=== PATIENT | male | born 1940 | race Caucasian/White ===

== ENCOUNTER 2023-06-13 06:11 | Day surgery (SDC) | payer BC, MEDICARE, SELFPAY ==
[2023-06-13] VITALS (18 sets, daily range): BP systolic 101–151; BP diastolic 28–127
[2023-06-13 06:58] LABS: Glucose - Point of Care 205 mg/dl (70-99)
[2023-06-13] MEDS: NSS 200 IV (07:25)
[2023-06-13 10:20] LABS: ACT-LR - POC 340 Seconds (116-155)
--- NOTE | 2023-06-13 11:08 | ITS.CL.CATH ---
Marketing Services Manager - Catheterization
Cardiac Catheterization
Procedure Report:
RIGHT AND LEFT HEART STUDY WITH CORONARY INTERVENTION
Date of Procedure: June 13, 2023
Referring: Dr. Sebastian Crawford
PROCEDURES:
1. Right heart catheterization
2. Coronary angiography
3. Successful stenting of the distal right coronary artery with a 3.0 x 15 mm Xience stent that was postdilated with a 3.0 mm noncompliant balloon
INDICATION: This is an 83-year-old gentleman with a prior history of aortic stenosis and ongoing symptoms of exertional dyspnea. His most recent echocardiogram was performed during hospitalization at [facility] on 04/17/2023. His LVEF was
estimated at 40%. The aortic valve peak velocity measured 3.55 m/s with a mean gradient of 36 mmHg. He does have a prior history of coronary artery disease and underwent bifurcation stenting of the LAD and diagonal branch in June 2022. He had
been treated with aspirin and ticagrelor since that time. His ticagrelor was discontinued after he required a left carotid in February 2023. However, he was transition back to ticagrelor while hospitalized at [facility] 04/17/2023. His
shortness of breath has persisted. He was initially scheduled for an exercise stress study but reported ongoing exertional intolerance and is now referred for right and left heart catheterization
ACCESS: Prior attempts at right radial arterial access were unsuccessful. Ultrasound guidance was utilized to obtain access in the left common femoral artery.
HEMODYNAMICS : mmHg
RA (m) : 11
RV (s/d) : 46/10, 14
PA (s/d, m) : 41/19, 27
PCWP (m) : 18
AO (s/d, m) : 147/67
Cardiac Output: 3.9 L / min
Cardiac Index: 1.9 L/ min / m-2
CORONARY FINDINGS
Dominance: Right
LEFT MAIN: Minor distal tapering
LEFT ANTERIOR DESCENDING: The LAD arises normally from the left main and runs in the anterior interventricular groove. The LAD and diagonal bifurcation stented segment remains widely patent. The mid to distal LAD has minor irregularities but no
focal obstructive stenosis.
CIRCUMFLEX: The circumflex is a small nondominant vessel with a 70-80% stenosis in its midportion. The circumflex supplies a small OM1 and very tiny terminal OM 2 and OM 3 branches
RIGHT CORONARY ARTERY: The right coronary artery is a dominant vessel with a new 70% stenosis in its midportion when compared to the angiogram from 06/2022. The PDA arises from the distal RCA and is widely patent. The posterolateral branch is small.
VENTRICULOGRAPHY: Not done
ANGIOPLASTY PROCEDURE DETAIL: Upon review of the diagnostic catheterization films the decision was made to proceed with stenting of the new 70% mid RCA stenosis. Intravenous heparin was administered and the patient received a 180 mg loading dose of
ticagrelor. A 3.0 x 15 mm Xience stent was implanted in the mid RCA at nominal pressures then postdilated with a 3.0 mm noncompliant balloon to high pressures with a nice angiographic result
RADIATION SUMMARY: Fluoro Time (min): 10.8, Dose (mGy): 697, DAP (Gy.cm2) : 65.4
CONCLUSIONS
1. Likely severe symptomatic aortic stenosis
2. Patent LAD/diagonal stents from 06/2022
3. Successful stenting of the mid right coronary artery with a 3.0 x 15 mm Xience stent that was implanted at nominal pressures and postdilated with a 3 mm noncompliant balloon
RECOMMENDATIONS
1. Uninterrupted dual antiplatelet therapy for 6 to 12 months
2. Proceed with TAVR CT and CT surgical consult
3. Patient feels his breathlessness worsened with ticagrelor compared to clopidogrel. Will switch back to clopidogrel.
Copy to: Dr. Sebastian Crawford
[2023-06-13] MEDS: NSS 1000 IV (11:18)
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
== END 2023-06-13 16:35 | disposition home or self-care (01) ==
LOC: CATH 06:11
PROVIDERS: ATTENDING PHYSICIAN Internal Medicine Interventional Cardiology; FAMILY PHYSICIAN Family Medicine; OTHER PHYSICIAN Internal Medicine Cardiovascular Disease
DX: I25.10 Atherosclerotic heart disease of native coronary artery without angina pectoris (principal); I35.0 Nonrheumatic aortic (valve) stenosis; I11.0 Hypertensive heart disease with heart failure; I50.9 Heart failure, unspecified; R06.09 Other forms of dyspnea; Z82.49 Family history of ischemic heart disease and other diseases of the circulatory system; Z79.02 Long term (current) use of antithrombotics/antiplatelets; Z79.82 Long term (current) use of aspirin; Z95.5 Presence of coronary angioplasty implant and graft; E11.9 Type 2 diabetes mellitus without complications; N31.9 Neuromuscular dysfunction of bladder, unspecified
CPT/HCPCS: 82962; 85347; 93005; 93456; C1725; C1760; C1769; C1874; C1894; C9600; Q9967

== ENCOUNTER 2023-06-17 17:14 | Inpatient (IN) | payer BC, MEDICARE, SELFPAY ==
[2023-06-17] VITALS (7 sets, daily range): BP systolic 102–124; BP diastolic 51–68; BMI 29.3; BMI 29.1
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
[2023-06-17 13:45] LABS: % Basophils 0.6 % (0-2); % Eosinophils 1.2 % (0-6); % Immature Granulocytes 0.4 % (0-0.5); % Lymphocytes 12.7 % (20.5-51.1); % Monocytes 12.1 % (1.7-9.3); Absolute Basophils 0.1 10^3/uL (0-0.2); Absolute Eosinophils 0.1 10^3/uL (0-0.7); Absolute Lymphocytes 1.3 10^3/uL (1.2-3.4); Absolute Monocytes 1.3 10^3/uL (0.1-0.6); Absolute Neutrophils 7.6 10^3/uL (1.4-6.5); Hematocrit 30.5 % (39.0-52.0); Hemoglobin 9.5 g/dL (13.0-18.0); Mean Corp Hgb Conc. 31.1 g/dL (33.0-37.0); Mean Corpuscular Hgb 21.9 pg (27.0-31.0); Mean Corpuscular Volume 70.3 fL (80.0-94.0); Mean Platelet Volume 10.9 fL (7.4-10.4); Nucleated Red Blood Cells % 0 % (-); Platelet Count 246 10^3/uL (130-400); Red Blood Cell Count 4.34 10^6/uL (4.70-6.10); Red Cell Dist. Width 19.3 % (11.5-14.5); White Blood Cell Count 10.4 10^3/uL (4.8-10.8)
[2023-06-17 13:59] LABS: ALT (SGPT) 12 U/L (0-50); AST (SGOT) 22 U/L (17-59); Albumin 4.2 g/dl (3.5-5.0); Alkaline Phosphatase 89 U/L (38-126); Blood Urea Nitrogen 33 mg/dl (9-20); Calcium 9.4 mg/dl (8.4-10.2); Carbon Dioxide 26 mmol/L (22-30); Chloride 100 mmol/L (98-107); Estimated Creatinine Clearance 32 ml/min; Glucose 160 mg/dl (70-99); Sodium 135 mmol/L (135-145); Total Protein 6.9 g/dl (6.3-8.2); eGFR 37.12
[2023-06-17 14:13] LABS: Troponin I 0.425 ng/ml
[2023-06-17 14:29] LABS: NT-proBNP 6720 pg/ml
[2023-06-17] MEDS: NSS 500 IV (14:51)
[2023-06-17 16:56] LABS: Troponin I 0.422 ng/ml
[2023-06-17] MEDS: ROCEPHIN 1000 MG IV (17:02)
--- NOTE | 2023-06-17 17:02 | HPS.HSE ---
Addendum entered and electronically signed by Martínez Canales MD 06/17/23 17:06:
Continue BIPAP for sleep apnea. Protonix increased to BID.
Original Note:
Family Physician
-
Family Physician: Danielle Samayoa
Chief Complaint
-
shortness of breath
History of Present Illness
83-year-old male past medical history of asthma, sleep apnea on BiPAP, tracheostomy, CAD status post stents, chronic HFrEF moderate to severe aortic stenosis, hypertension, hyperlipidemia, GERD, CKD 3, diabetes, TIA, left carotid stenosis status
post stent in February, duodenal ulceration, left shoulder calcified bursitis, history of biliary stone status post extraction, presenting with progressive shortness of breath.
Patient has been ongoing shortness of breath for the past several months attributed to moderate to severe aortic stenosis and coronary artery disease. Patient underwent cardiac catheterization 4 days ago with RCA stent placement without improvement
in shortness of breath. Shortness of breath has gotten significantly worse in the past few days to the point where he cannot ambulate. Patient also has intermittent chest pain since prior to catheterization which has been stable. No cough or
fevers or chills.
Patient does not have any blood in the stool or black stool. called cardiology office who recommended iron transfusion.
Patient was also complaining of bilateral groin pain since catheterization 4 days ago. He denies any groin pain at the current time. He has a hematoma at the site of the catheterization.
In February patient was hospitalized at [facility] was found to be anemic and had endoscopy showed duodenal ulceration. He was on Protonix at that time. He also had a TIA and had left carotid stent placed.
Patient is also complaining of left shoulder pain.
No smoking or alcohol use
Medical History
Past Medical History
Past Medical History: Reports Other ( asthma, sleep apnea on BiPAP, tracheostomy, CAD status post stents, chronic HFrEF moderate to severe aortic stenosis, hypertension, hyperlipidemia, GERD, CKD 3, diabetes, TIA, left carotid stenosis status post
stent in February, duodenal ulceration, left shoulder calcified bursitis, history of bili)
Past Surgical History: Reports None
Social History
Tobacco: Non-smoker
Alcohol: None
Drug: None
Family History
Family History: Not pertinent
Allergies / Home Medications
Allergies reflects when Allergies were last updated in [email or web address].
Home Medications with original date entered in [email or web address]
Allergy/Medication List:
Allergies
Allergy/AdvReac Type Severity Reaction Status Date / Time
amlodipine besylate Allergy Edema Verified 06/13/23 07:30
[From Norvasc]
benazepril HCl Allergy Bradycardia Verified 06/13/23 07:30
[From Lotensin]
clonidine HCl [From Catapres] Allergy SEVERE Verified 06/13/23 07:30
FATIGUE
doxazosin Allergy Shortness Verified 06/13/23 07:30
of breath,
swollen
hands
doxycycline Allergy Upset Verified 06/13/23 07:30
Stomach
hydrochlorothiazide Allergy Renal Verified 06/13/23 07:30
Insufficiency
lisinopril Allergy Tongue Verified 06/13/23 07:30
Swelling
metoprolol tartrate Allergy SEVERE Verified 06/13/23 07:30
[From Lopressor] Fatigue
niacin Allergy Rash Verified 06/13/23 07:30
semaglutide [From Ozempic] Allergy Gall Verified 06/13/23 07:30
Bladder
dx/stones,
cholecystitis
spironolactone Allergy Gynocosmast Verified 06/13/23 07:30
[From Aldactone] ia
Rkysbqc-IDB-CaA Reductase Allergy Myalgias Verified 06/13/23 07:30
Inhibitor
[Dxucikp-Vss-Vpw Reductase
Inhibitor]
Home Medications
glyburide 5 mg tablet 10 mg PO DAILY Diabetes 06/01/13
albuterol sulfate 90 mcg/actuation aerosol inhaler (ProAir HFA) 2 puff inhalation R [id number] PRN sob 06/22/22
aspirin 81 mg tablet,delayed release 81 mg PO DAILY Blood clot prevention/tx 06/22/22
magnesium oxide 800 mg PO DAILY Supplement 06/22/22
acetaminophen 650 mg tablet,extended release 1,300 mg PO QPM pain 06/13/23
colchicine 0.6 mg tablet 0.3 mg PO DAILY Gout 06/13/23
cranberry 500 mg capsule 900 mg PO DAILY Supplement 06/13/23
evolocumab 140 mg/mL subcutaneous syringe (Repatha Syringe) 140 mg SC Q2W High Cholesterol 06/13/23
furosemide 20 mg tablet (Lasix) 60 mg PO BID Fluid Retention/Swelling 06/13/23
insulin detemir U-100 100 unit/mL (3 mL) subcutaneous pen (Levemir FlexPen) 14 unit SC QPM Diabetes 06/13/23
pantoprazole 40 mg tablet,delayed release (Protonix) 40 mg PO DAILY Gastrointestinal Issue 06/13/23
tramadol 50 mg tablet 50 mg PO QPM PRN SEVERE pain 06/13/23
carvedilol 6.25 mg tablet (Coreg) 6.25 mg PO BID Blood Pressure 06/17/23
clopidogrel 75 mg tablet (Plavix) 75 mg PO DAILY Blood Clot Prevention/Tx 06/17/23
nitroglycerin 0.4 mg sublingual tablet 0.4 mg sublingual [id number] PRN chest pain 06/17/23
rosuvastatin 5 mg tablet (Crestor) 5 mg PO MOWEFR cholesterol 06/17/23
Review of Systems
-
History Source: Patient
A 12 point ROS was completed and negative except as noted: Yes
Constitutional: Reports No Symptoms
EENT: Reports No Symptoms
Respiratory: Reports See HPI
Cardiac: Reports See HPI
Abdomen/GI: Reports No Symptoms
: Reports No Symptoms
Musculoskeletal: Reports No Symptoms
Skin: Reports No Symptoms
Neurological: Reports No Symptoms
Endocrine: Reports No Symptoms
Hematologic/Lymphatic: Reports No Symptoms
Psych: Reports No Symptoms
Physical Exam
Vital Signs
Vital Signs
Temp Pulse Resp BP Pulse Ox
97.6 F 66 30 103/59 92
06/17/23 12:22 06/17/23 13:30 06/17/23 13:30 06/17/23 13:00 06/17/23 13:00
Physical Exam
General: Well Developed, Well Nourished and No Apparent Distress
HEENT: NormoCephalic, Moist mucous membranes and Atraumatic
Respiratory: Clear
Cardiac: S1/S2 and Regular Rhythm; No Murmur or Rub
GI: Soft, Non Tender, Non Distended and Normal Bowel Sounds; No Organomegaly
Rectal: Deferred by Provider
Musculoskeletal: No Clubbing, No Cyanosis and No Edema
Skin: No Rash
Neuro: Nonfocal/grossly intact
Laboratory Results
-
06/17/23 13:32
06/17/23 13:32
Laboratory Results
Total Bilirubin 1.0 mg/dl (0.2-1.3) 06/17/23 13:32
AST 22 U/L (17-59) 06/17/23 13:32
ALT 12 U/L (0-50) 06/17/23 13:32
Alkaline Phosphatase 89 U/L (38-126) 06/17/23 13:32
Troponin I 0.422 ng/ml H* 06/17/23 16:22
Data Reviewed
-
Lab Data: Labs Reviewed by me
Old Records: Reviewed
Impression/Plan
-
IMPRESSION:
PLAN:
# Exertional dyspnea secondary to right medial lobe pneumonia/progressive anemia
-Chest x-ray shows increased opacity medial aspect of the right lung base posteriorly consistent with pneumonic process
-Ceftriaxone/azithromycin
# Progressive microcytic anemia likely due to duodenal erosion in the setting of current aspirin/Plavix use
# History of duodenal erosion
-Hemoccult negative
-Hemoglobin 9.5 from 11 prior to catheterization, from 13.6 in June 2022
-Check iron studies, B12 and folate
-Iron transfusion
-Continue Protonix
-Will need to continue aspirin and Plavix due to recent cardiac stent, and would likely not be candidate for endoscopy at this time
-Continue to monitor hemoglobin as outpatient
# Bilateral groin pain, now resolved
# Left groin hematoma
-Left groin duplex ultrasound without evidence of pseudoaneurysm or fistula
# Chronic Non-[place] troponin elevation in the setting of recent CAD/CKD/anemia/moderate to severe aortic stenosis
# History of CAD status post recent distal right coronary artery stent on 06/13/23
-EKG shows normal sinus rhythm, LVH with repolarization
-Troponin of 0.4 from 0.25 last year
-Continue aspirin, Plavix
Chronic HFrEF
-Prior echo with EF of 45 to 50%
-Continue Lasix
Moderate to severe aortic stenosis
-Plan for TAVR once other medical conditions are optimized
History of TIA
Left carotid stenosis status post stent placement in February
# Left shoulder pain secondary to degenerative joint disease
-Pain due to calcified bursitis as per
-Continue tramadol
CKD 3
-Renal function at baseline
Essential hypertension
-Continue Coreg
Asthma
-Continue inhalers
Obstructive sleep apnea
History of tracheostomy
Hyperlipidemia
-Continue statin
Type 2 diabetes
-Hold glyburide
-Continue Levemir
-Insulin sliding scale
Gout
-Continue colchicine
History of gallbladder stones status post retrieval
Full code
DVT prophylaxis�SCDs
Cardiac diet
[2023-06-17] MEDS: ULTRAM 50 MG PO (17:23)
[2023-06-17 20:50] LABS: Glucose - Point of Care 228 mg/dl (70-99)
[2023-06-17] MEDS: ZITHROMAX INFUSION 250 IV (20:51)
[2023-06-17] MEDS: COREG 6.25 MG PO (20:56)
[2023-06-17] MEDS: LASIX 60 MG PO (20:57)
[2023-06-17] MEDS: PROTONIX 40 MG PO (20:58)
[2023-06-17] MEDS: TYLENOL 1000 MG PO (20:58)
[2023-06-17 21:04] LABS: Iron 49 ug/dl (49-181)
[2023-06-17 21:13] LABS: Percent Saturation 11 % (20-50); Total Iron Binding Capacity 439 ug/dl (261-462)
[2023-06-17] MEDS: LEVEMIR 0.140000000000000013 UNITS SC (21:14)
[2023-06-17 21:52] LABS: Ferritin 19.8 ng/ml (17.9-464.0)
[2023-06-17 22:00] LABS: Troponin I 0.384 ng/ml
[2023-06-17 22:05] LABS: Vitamin B12 260 pg/ml (239-931)
--- NOTE | 2023-06-18 00:22 | PTCARENOTE ---
Patient received from ED, ambulated to bed from stretcher at bedside with patient. Vital signs taken. No acute issues, Patient oriented to room. Patient with home cpap to be used at bedtime . no further needs assessed at this time.
[2023-06-18 02:11] LABS: % Basophils 0.5 % (0-2); % Eosinophils 1.8 % (0-6); % Immature Granulocytes 0.4 % (0-0.5); % Lymphocytes 19.8 % (20.5-51.1); % Monocytes 16.3 % (1.7-9.3); % Neutrophils 61.2 % (42.2-75.2); Absolute Eosinophils 0.1 10^3/uL (0-0.7); Absolute Lymphocytes 1.6 10^3/uL (1.2-3.4); Absolute Monocytes 1.3 10^3/uL (0.1-0.6); Absolute Neutrophils 4.9 10^3/uL (1.4-6.5); Hematocrit 27.3 % (39.0-52.0); Hemoglobin 8.7 g/dL (13.0-18.0); Mean Corp Hgb Conc. 31.9 g/dL (33.0-37.0); Mean Corpuscular Hgb 22.1 pg (27.0-31.0); Mean Corpuscular Volume 69.3 fL (80.0-94.0); Mean Platelet Volume 10.5 fL (7.4-10.4); Nucleated Red Blood Cells % 0 % (-); Platelet Count 217 10^3/uL (130-400); Red Blood Cell Count 3.94 10^6/uL (4.70-6.10); Red Cell Dist. Width 19.2 % (11.5-14.5); White Blood Cell Count 7.9 10^3/uL (4.8-10.8)
[2023-06-18 02:31] LABS: ALT (SGPT) 10 U/L (0-50); AST (SGOT) 19 U/L (17-59); Albumin 3.4 g/dl (3.5-5.0); Alkaline Phosphatase 68 U/L (38-126); Blood Urea Nitrogen 35 mg/dl (9-20); Calcium 9.1 mg/dl (8.4-10.2); Carbon Dioxide 27 mmol/L (22-30); Chloride 101 mmol/L (98-107); Estimated Creatinine Clearance 34 ml/min; Glucose 155 mg/dl (70-99); Potassium 3.9 mmol/L (3.5-5.1); Sodium 136 mmol/L (135-145); eGFR 39.75
[2023-06-18 02:42] LABS: Troponin I 0.411 ng/ml
[2023-06-18 03:00] VITALS: BP 106/49
[2023-06-18 07:02] LABS: Troponin I 0.421 ng/ml
[2023-06-18 07:37] LABS: Glucose - Point of Care 180 mg/dl (70-99)
[2023-06-18 07:55] VITALS: BP 110/56
[2023-06-18] MEDS: NOVOLOG FLEXPEN-LOW RESISTANCE 1 UNITS SC (08:09)
[2023-06-18] MEDS: COLCHICINE 0.299999999999999989 MG PO (09:29)
[2023-06-18] MEDS: ASPIR LOW (ENTERIC COATED) 81 MG PO (09:29)
[2023-06-18] MEDS: COREG 6.25 MG PO ×2 (09:30→20:24)
[2023-06-18] MEDS: LASIX 60 MG PO ×2 (09:32→15:47)
[2023-06-18] MEDS: MAG-TAB SR 168 MG PO (09:33)
[2023-06-18] MEDS: PLAVIX 75 MG PO (09:34)
[2023-06-18] MEDS: PROTONIX 40 MG PO ×2 (09:35→20:24)
[2023-06-18] MEDS: CRESTOR 5 MG PO (09:38)
[2023-06-18 11:12] VITALS: BP 120/64
[2023-06-18 11:31] LABS: Glucose - Point of Care 209 mg/dl (70-99)
[2023-06-18] MEDS: NOVOLOG FLEXPEN-LOW RESISTANCE 2 UNITS SC (12:22)
[2023-06-18] MEDS: FERRLECIT 110 MG IV (13:37)
[2023-06-18 14:53] VITALS: BP 102/64
--- NOTE | 2023-06-18 15:05 | PTCARENOTE ---
Pt ambulated to restroom w/o ringing call sandy. Pt educated on importance of calling for assistance. Bed alarm placed under Pt for safety. Pt is SOB after ambulation with SpO2 in 80's. 2L O2 placed on Pt. Re-check 94% on 2L. Pt with 100.4F temp. TT
to Dr. Smith- No new orders. Will monitor this shift. Scheduled tylenol 1000 mg due @ 1800.
--- NOTE | 2023-06-18 15:30 | W.PN.HOSP.TC ---
Today's Communication/Plan
-
abx
mrsa swab. covid, flu follow up
incentive arleen
procalcitonin
trop most likely 2/2 to severe , chest pain atypical of CAD disease; chest pain is upon inspiration
F/u trop tomorrow, if uptrending or chest pain symptoms change - consult cards
Assessment / Plan
Assessment / Plan
Physical Exam
General: Well Developed, Well Nourished and No Apparent Distress
HEENT: NormoCephalic, Moist mucous membranes and Atraumatic
Respiratory: Clear
Cardiac: S1/S2 and Regular Rhythm; No Murmur or Rub
GI: Soft, Non Tender, Non Distended and Normal Bowel Sounds; No Organomegaly
Rectal: Deferred by Provider
Musculoskeletal: No Clubbing, No Cyanosis and No Edema
Skin: No Rash
Neuro: Nonfocal/grossly intact
# Exertional dyspnea secondary to right medial lobe pneumonia/progressive anemia
-chest pain is pleuritic, sharp and upon inspiration, therefore doubt cardiac in nature
-Chest x-ray shows increased opacity medial aspect of the right lung base posteriorly consistent with pneumonic process
-Ceftriaxone/azithromycin
# Progressive microcytic anemia likely due to duodenal erosion in the setting of current aspirin/Plavix use
# History of duodenal erosion
-Hemoccult negative
-Hemoglobin 9.5 from 11 prior to catheterization, from 13.6 in June 2022
-Check iron studies, B12 and folate
-Iron transfusion
-Continue Protonix
-Will need to continue aspirin and Plavix due to recent cardiac stent, and would likely not be candidate for endoscopy at this time
-Continue to monitor hemoglobin as outpatient
# Bilateral groin pain, now resolved
# Left groin hematoma
-Left groin duplex ultrasound without evidence of pseudoaneurysm or fistula
# Chronic Non-[place] troponin elevation in the setting of recent CAD/CKD/anemia/moderate to severe aortic stenosis
# History of CAD status post recent distal right coronary artery stent on 06/13/23
-EKG shows normal sinus rhythm, LVH with repolarization
-Troponin of 0.4 from 0.25 last year
-Continue aspirin, Plavix
-most likely 2/2 to severe aortic stensosis and acute infection
-not typical chest pain.
-can repeat trop tomorrow
Chronic HFrEF
-Prior echo with EF of 45 to 50%
-Continue Lasix
Moderate to severe aortic stenosis
-Plan for TAVR once other medical conditions are optimized
History of TIA
Left carotid stenosis status post stent placement in February
# Left shoulder pain secondary to degenerative joint disease
-Pain due to calcified bursitis as per
-Continue tramadol
CKD 3
-Renal function at baseline
Essential hypertension
-Continue Coreg
Asthma
-Continue inhalers
Obstructive sleep apnea
History of tracheostomy
Hyperlipidemia
-Continue statin
Type 2 diabetes
-Hold glyburide
-Continue Levemir
-Insulin sliding scale
Gout
-Continue colchicine
History of gallbladder stones status post retrieval
Full code
DVT prophylaxis�HSQ
Cardiac diet
Anticipated Discharge: > 48 hours
Subjective/Interval History
-
Date of Service: June 18, 2023
no acute events
Objective Data
-
Vital Signs:
Vital Signs
Temp Pulse Resp BP Pulse Ox
100.4 F H 86 22 102/64 94
06/18/23 14:53 06/18/23 14:53 06/18/23 14:53 06/18/23 14:53 06/18/23 14:53
Review of Systems
-
History Source: Patient
All other systems: Reviewed and negative
Data Reviewed
-
Diagnostic Radiology: Image personally visualized and interpreted and Report Reviewed by me
--- NOTE | 2023-06-18 16:26 | CM ---
vendor relationship manager reviewed patient's chart and met with patient and patient lives with his spouse in a 2 story home, patient is independent with adl's and ambulation, patient has a cane and walker in home that he does not use. Patient is currently
requiring oxygen and patient did not require oxygen prior to admission. Patient has a prescription plan and uses [facility] pharmacy.
PCP: Danielle Samayoa
Plan; Home when stable no needs, patient has declined visiting nursing as patient's spouse states she is a nurse.
[2023-06-18 16:46] LABS: Glucose - Point of Care 133 mg/dl (70-99)
[2023-06-18 16:49] LABS: Procalcitonin 0.06 ng/ml (0.0-0.25)
[2023-06-18] MEDS: NOVOLOG FLEXPEN-LOW RESISTANCE SC (17:21)
[2023-06-18] MEDS: ULTRAM 50 MG PO (18:32)
[2023-06-18] MEDS: TYLENOL 1000 MG PO (18:37)
[2023-06-18] MEDS: STERILE WATER FOR INJECTION 10 ML IV (18:38)
[2023-06-18] MEDS: ROCEPHIN 1000 MG IV (18:39)
[2023-06-18 19:15] VITALS: BP 119/63
[2023-06-18] MEDS: ZITHROMAX INFUSION 250 IV (20:25)
[2023-06-18] MEDS: HEPARIN 5000 UNITS SC (20:25)
[2023-06-18 21:43] LABS: Glucose - Point of Care 144 mg/dl (70-99)
[2023-06-18] MEDS: LEVEMIR 0.140000000000000013 UNITS SC (22:16)
[2023-06-18 22:30] LABS: COVID-19 Antigen Negative (Negative)
[2023-06-18 23:36] VITALS: BP 98/59
[2023-06-19 03:16] VITALS: BP 104/59
[2023-06-19 06:00] VITALS: BMI 29.4
[2023-06-19 07:07] LABS: Hematocrit 29.2 % (39.0-52.0); Hemoglobin 8.9 g/dL (13.0-18.0); Mean Corp Hgb Conc. 30.5 g/dL (33.0-37.0); Mean Corpuscular Volume 72.1 fL (80.0-94.0); Mean Platelet Volume 10.6 fL (7.4-10.4); Platelet Count 225 10^3/uL (130-400); Red Blood Cell Count 4.05 10^6/uL (4.70-6.10); Red Cell Dist. Width 19.4 % (11.5-14.5)
[2023-06-19 07:30] VITALS: BP 115/68
[2023-06-19 07:31] LABS: Glucose - Point of Care 122 mg/dl (70-99)
[2023-06-19 07:38] LABS: Troponin I 0.868 ng/ml
[2023-06-19] MEDS: NOVOLOG FLEXPEN-LOW RESISTANCE SC (07:46)
[2023-06-19 08:23] LABS: ALT (SGPT) 11 U/L (0-50); AST (SGOT) 22 U/L (17-59); Albumin 3.8 g/dl (3.5-5.0); Alkaline Phosphatase 77 U/L (38-126); Blood Urea Nitrogen 34 mg/dl (9-20); Calcium 9.1 mg/dl (8.4-10.2); Carbon Dioxide 26 mmol/L (22-30); Chloride 102 mmol/L (98-107); Estimated Creatinine Clearance 32 ml/min; Glucose 109 mg/dl (70-99); Potassium 4.2 mmol/L (3.5-5.1); Sodium 134 mmol/L (135-145); Total Bilirubin 0.8 mg/dl (0.2-1.3); Total Protein 6.3 g/dl (6.3-8.2); eGFR 37.12
[2023-06-19] MEDS: COREG 6.25 MG PO ×2 (09:17→22:06)
[2023-06-19] MEDS: PLAVIX 75 MG PO (09:17)
[2023-06-19] MEDS: LASIX 60 MG PO (09:17)
[2023-06-19] MEDS: ASPIR LOW (ENTERIC COATED) 81 MG PO (09:17)
[2023-06-19] MEDS: COLCHICINE 0.299999999999999989 MG PO (09:17)
[2023-06-19] MEDS: MAG-TAB SR 168 MG PO (09:20)
[2023-06-19] MEDS: HEPARIN 5000 UNITS SC ×2 (09:20→22:05)
[2023-06-19] MEDS: PROTONIX 40 MG PO ×2 (09:20→22:09)
[2023-06-19] MEDS: ULTRAM 50 MG PO (09:50)
[2023-06-19 11:18] VITALS: BMI 29.4
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
[2023-06-19 12:34] LABS: Glucose - Point of Care 182 mg/dl (70-99)
[2023-06-19 13:04] VITALS: BP 121/77
[2023-06-19] MEDS: NOVOLOG FLEXPEN-LOW RESISTANCE 1 UNITS SC ×2 (13:04→16:31)
[2023-06-19] MEDS: FERRLECIT 110 MG IV (14:15)
--- NOTE | 2023-06-19 14:32 | W.PN.HOSP.TC ---
Today's Communication/Plan
-
cont abx
trial lasix
iv iron
incentive arleen
Assessment / Plan
Assessment / Plan
Physical Exam
General: Well Developed, Well Nourished and No Apparent Distress
HEENT: NormoCephalic, Moist mucous membranes and Atraumatic
Respiratory: Clear
Cardiac: S1/S2 and Regular Rhythm; No Murmur or Rub
GI: Soft, Non Tender, Non Distended and Normal Bowel Sounds; No Organomegaly
Rectal: Deferred by Provider
Musculoskeletal: No Clubbing, No Cyanosis and No Edema
Skin: No Rash
Neuro: Nonfocal/grossly intact
# Exertional dyspnea secondary to right medial lobe pneumonia/progressive anemia
-chest pain is pleuritic, sharp and upon inspiration, therefore doubt cardiac in nature
-Chest x-ray shows increased opacity medial aspect of the right lung base posteriorly consistent with pneumonic process
-Ceftriaxone/azithromycin
# Chronic Non-NE troponin elevation in the setting of recent CAD/CKD/anemia/moderate to severe aortic stenosis
# History of CAD status post recent distal right coronary artery stent on 06/13/23
-EKG shows normal sinus rhythm, LVH with repolarization
-Troponin up to to .86 today
� Cardiology consulted
�I suspect this is secondary to moderate-severe aortic stenosis, sepsis
� Can trial gentle diuresis, IV Lasix
� Treat medically/conservatively
-Continue aspirin, Plavix, Crestor, beta-tio
-not typical chest pain.
# Progressive microcytic anemia likely due to duodenal erosion in the setting of current aspirin/Plavix use
# History of duodenal erosion
-Hemoccult negative
-Hemoglobin 9.5 from 11 prior to catheterization, from 13.6 in June 2022
-Check iron studies, B12 and folate
-Iron transfusion
-Continue Protonix
-Will need to continue aspirin and Plavix due to recent cardiac stent, and would likely not be candidate for endoscopy at this time
-Continue to monitor hemoglobin as outpatient
#Hyponatremia
� Mild
� Mostly secondary pneumonia
� Continue to monitor
# Bilateral groin pain, now resolved
# Left groin hematoma
-Left groin duplex ultrasound without evidence of pseudoaneurysm or fistula
Chronic HFrEF
-Prior echo with EF of 45 to 50%
-Continue Lasix, trial IV Lasix and patient
Moderate to severe aortic stenosis
-Plan for TAVR once other medical conditions are optimized
History of TIA
Left carotid stenosis status post stent placement in February
# Left shoulder pain secondary to degenerative joint disease
-Pain due to calcified bursitis as per
-Continue tramadol
CKD 3
-Renal function at baseline
Essential hypertension
-Continue Coreg
Asthma
-Continue inhalers
Obstructive sleep apnea
History of tracheostomy
Hyperlipidemia
-Continue statin
Type 2 diabetes
-Hold glyburide
-Continue Levemir
-Insulin sliding scale
Gout
-Continue colchicine
History of gallbladder stones status post retrieval
Full code
DVT prophylaxis�HSQ
Cardiac diet
Total time spent on today's encounter was 50 minutes which included time spent in counseling the patient/family regarding diagnosis and treatment plan as listed above, goals of care, and symptom management. Case was discussed with nursing staff,
specialists, and care coordinators/case management. All labs and imaging personally reviewed by me. Remainder the time spent in detailed review of previous records, lab data, imaging, and other medical provider documentation.
Anticipated Discharge: > 48 hours
Subjective/Interval History
-
Date of Service: June 19, 2023
No acute events, troponins increasing
Objective Data
-
Labs:
Laboratory Results
06/19/23
06:58
WBC 9.0
Hgb 8.9 L
Hct 29.2 L
Plt Count 225
Sodium 134 L
Potassium 4.2
Chloride 102
Carbon Dioxide 26
BUN 34 H
Creatinine 1.8 H
Glucose 109 H
Calcium 9.1
Total Bilirubin 0.8
AST 22
ALT 11
Alkaline Phosphatase 77
Vital Signs:
Vital Signs
Temp Pulse Resp BP Pulse Ox
97.5 F 66 17 121/77 93
06/19/23 07:30 06/19/23 07:30 06/19/23 07:30 06/19/23 13:04 06/19/23 11:18
I&O
06/18/23 06/19/23 06/20/23
06:59 06:59 06:59
Intake Total 1330 / 1330
Output Total 100 / 100
Balance 1230 / 1230
Review of Systems
-
History Source: Patient
All other systems: Not reviewed unless documented
Data Reviewed
-
Diagnostic Radiology: Image personally visualized and interpreted and Report Reviewed by me
[2023-06-19 15:00] VITALS: BP 106/64
[2023-06-19 15:32] LABS: Troponin I 0.597 ng/ml
[2023-06-19 16:12] LABS: Glucose - Point of Care 192 mg/dl (70-99)
[2023-06-19] MEDS: LASIX 60 MG IV (16:30)
[2023-06-19] MEDS: STERILE WATER FOR INJECTION 10 ML IV (17:37)
[2023-06-19] MEDS: TYLENOL 1000 MG PO (17:37)
[2023-06-19] MEDS: ROCEPHIN 1000 MG IV (17:37)
[2023-06-19 19:23] VITALS: BP 109/56
[2023-06-19 21:15] LABS: Glucose - Point of Care 196 mg/dl (70-99)
[2023-06-19 21:53] LABS: Troponin I 0.572 ng/ml
[2023-06-19] MEDS: LEVEMIR 0.140000000000000013 UNITS SC (22:06)
[2023-06-19] MEDS: ZITHROMAX INFUSION 250 IV (22:08)
[2023-06-19 23:06] VITALS: BP 101/52
[2023-06-20 02:58] VITALS: BP 100/54
[2023-06-20 06:00] VITALS: BMI 29.6
[2023-06-20 07:33] LABS: Glucose - Point of Care 120 mg/dl (70-99)
[2023-06-20 08:00] VITALS: BP 112/67
[2023-06-20] MEDS: NOVOLOG FLEXPEN-LOW RESISTANCE SC (08:06)
[2023-06-20 09:11] LABS: Hematocrit 28.7 % (39.0-52.0); Hemoglobin 8.7 g/dL (13.0-18.0); Mean Corp Hgb Conc. 30.3 g/dL (33.0-37.0); Mean Corpuscular Hgb 21.9 pg (27.0-31.0); Mean Corpuscular Volume 72.1 fL (80.0-94.0); Mean Platelet Volume 11.5 fL (7.4-10.4); Platelet Count 239 10^3/uL (130-400); Red Blood Cell Count 3.98 10^6/uL (4.70-6.10); Red Cell Dist. Width 19.8 % (11.5-14.5); White Blood Cell Count 5.9 10^3/uL (4.8-10.8)
[2023-06-20 09:36] LABS: Blood Urea Nitrogen 48 mg/dl (9-20); Calcium 9.4 mg/dl (8.4-10.2); Carbon Dioxide 26 mmol/L (22-30); Chloride 96 mmol/L (98-107); Estimated Creatinine Clearance 30 ml/min; Glucose 120 mg/dl (70-99); HDL Cholesterol 19 mg/dl; LDL Cholesterol, Calculated 23 mg/dl; Potassium 4.1 mmol/L (3.5-5.1); Sodium 135 mmol/L (135-145); Total Cholesterol 107 mg/dl (50-199); Triglyceride 326 mg/dl (10-149); Very Low Density Lipoprotein 65 mg/dl (0-30); eGFR 34.79
[2023-06-20] MEDS: MAG-TAB SR 168 MG PO (09:38)
[2023-06-20] MEDS: ASPIR LOW (ENTERIC COATED) 81 MG PO (09:39)
[2023-06-20] MEDS: PLAVIX 75 MG PO (09:39)
[2023-06-20] MEDS: PROTONIX 40 MG PO ×2 (09:39→21:20)
[2023-06-20] MEDS: HEPARIN 5000 UNITS SC ×2 (09:39→21:19)
[2023-06-20] MEDS: COREG 6.25 MG PO ×2 (09:40→21:19)
[2023-06-20] MEDS: COLCHICINE 0.299999999999999989 MG PO (09:40)
[2023-06-20] MEDS: CRESTOR 5 MG PO (09:43)
[2023-06-20 12:00] VITALS: BP 101/63
[2023-06-20] MEDS: LASIX 60 MG IV (12:12)
[2023-06-20] MEDS: NOVOLOG FLEXPEN-LOW RESISTANCE 1 UNITS SC (12:13)
[2023-06-20 12:14] LABS: Glucose - Point of Care 162 mg/dl (70-99)
[2023-06-20] MEDS: FERRLECIT 110 MG IV (13:05)
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
--- NOTE | 2023-06-20 15:28 | W.PN.HOSP.TC ---
Today's Communication/Plan
-
cont abx
wean o2
incentive arleen
hopeful for dc tomorrow
Assessment / Plan
Assessment / Plan
Physical Exam
General: Well Developed, Well Nourished and No Apparent Distress
HEENT: NormoCephalic, Moist mucous membranes and Atraumatic
Respiratory: Clear
Cardiac: S1/S2 and Regular Rhythm; No Murmur or Rub
GI: Soft, Non Tender, Non Distended and Normal Bowel Sounds; No Organomegaly
Rectal: Deferred by Provider
Musculoskeletal: No Clubbing, No Cyanosis and No Edema
Skin: No Rash
Neuro: Nonfocal/grossly intact
# Exertional dyspnea secondary to right medial lobe pneumonia/progressive anemia
#Hypoxia
-chest pain is pleuritic, sharp and upon inspiration, therefore doubt cardiac in nature
-Chest x-ray shows increased opacity medial aspect of the right lung base posteriorly consistent with pneumonic process
-Ceftriaxone/azithromycin
# Chronic Non-[place] troponin elevation in the setting of recent CAD/CKD/anemia/moderate to severe aortic stenosis
# History of CAD status post recent distal right coronary artery stent on 06/13/23
-EKG shows normal sinus rhythm, LVH with repolarization
-Troponin up to to .86 today
� Cardiology consulted
�I suspect this is secondary to moderate-severe aortic stenosis, sepsis
� Can trial gentle diuresis, IV Lasix - switch back to PO lasix today
� Treat medically/conservatively
-Continue aspirin, Plavix, Crestor, beta-tio
-not typical chest pain.
# Progressive microcytic anemia likely due to duodenal erosion in the setting of current aspirin/Plavix use
# History of duodenal erosion
-Hemoccult negative
-Hemoglobin 9.5 from 11 prior to catheterization, from 13.6 in June 2022
-Check iron studies, B12 and folate
-Iron transfusion; po iron outpatient
-Continue Protonix
-Will need to continue aspirin and Plavix due to recent cardiac stent, and would likely not be candidate for endoscopy at this time
-Continue to monitor hemoglobin as outpatient
#Hyponatremia
� Mild
� Mostly secondary pneumonia
� Continue to monitor
# Bilateral groin pain, now resolved
# Left groin hematoma
-Left groin duplex ultrasound without evidence of pseudoaneurysm or fistula
Chronic HFrEF
-Prior echo with EF of 45 to 50%
-Continue Lasix
Moderate to severe aortic stenosis
-Plan for TAVR once other medical conditions are optimized
History of TIA
Left carotid stenosis status post stent placement in February
# Left shoulder pain secondary to degenerative joint disease
-Pain due to calcified bursitis as per
-Continue tramadol
CKD 3
-Renal function at baseline
Essential hypertension
-Continue Coreg
Asthma
-Continue inhalers
Obstructive sleep apnea
History of tracheostomy
Hyperlipidemia
-Continue statin
Type 2 diabetes
-Hold glyburide
-Continue Levemir
-Insulin sliding scale
Gout
-Continue colchicine
History of gallbladder stones status post retrieval
Full code
DVT prophylaxis�HSQ
Cardiac diet
Anticipated Discharge: 24 - 48 hours
Subjective/Interval History
-
Date of Service: June 20, 2023
appears more stronger today
Objective Data
-
Labs:
Laboratory Results
06/20/23
07:28
WBC 5.9
Hgb 8.7 L
Hct 28.7 L
Plt Count 239
Sodium 135
Potassium 4.1
Chloride 96 L
Carbon Dioxide 26
BUN 48 H
Creatinine 1.9 H
Glucose 120 H
Calcium 9.4
Vital Signs:
Vital Signs
Temp Pulse Resp BP Pulse Ox
97.7 F 75 20 101/63 94
06/20/23 12:00 06/20/23 12:00 06/20/23 12:00 06/20/23 12:00 06/20/23 12:00
I&O
06/19/23 06/20/23 06/21/23
06:59 06:59 06:59
Intake Total 1330 / 1330 1420 / 1420
Output Total 100 / 100
Balance 1230 / 1230 1420 / 1420
Review of Systems
-
History Source: Patient
All other systems: Not reviewed unless documented
Physical Exam
-
General: No Apparent Distress
HEENT: Moist Mucous Membranes
Respiratory: Clear to Auscultation
Cardiac: S1/S2 and Murmur (Aortic systolic); Negative Rub or JVD
GI: Soft, Nontender, Nondistended and Normal Bowel Sounds
Musculoskeletal: No Edema and Other (Right groin dressing in place - no hematoma/echymosis/swelling . No radial art site hematoma/swelling)
Neuro: Awake, Alert and No Motor Deficits
Data Reviewed
-
Diagnostic Radiology: Image personally visualized and interpreted and Report Reviewed by me
Labs: Labs Reviewed by me
[2023-06-20 16:00] VITALS: BP 127/63
[2023-06-20 16:27] LABS: Glucose - Point of Care 229 mg/dl (70-99)
[2023-06-20] MEDS: MIRALAX 17 GRAMS PO (16:33)
[2023-06-20] MEDS: NOVOLOG FLEXPEN-LOW RESISTANCE 2 UNITS SC (16:35)
[2023-06-20] MEDS: LASIX 60 MG PO (16:35)
[2023-06-20] MEDS: ROCEPHIN 1000 MG IV (17:19)
[2023-06-20] MEDS: STERILE WATER FOR INJECTION 10 ML IV (17:19)
[2023-06-20] MEDS: ULTRAM 50 MG PO (18:04)
[2023-06-20 19:30] VITALS: BP 122/59
[2023-06-20 21:18] LABS: Glucose - Point of Care 196 mg/dl (70-99)
[2023-06-20] MEDS: ZITHROMAX INFUSION 250 IV (21:20)
[2023-06-20] MEDS: LEVEMIR 0.140000000000000013 UNITS SC (21:20)
[2023-06-20 22:00] VITALS: BMI 29.6
[2023-06-20 23:09] VITALS: BP 114/71
[2023-06-21 07:07] LABS: Glucose - Point of Care 125 mg/dl (70-99)
[2023-06-21 07:38] VITALS: BP 125/64
[2023-06-21] MEDS: NOVOLOG FLEXPEN-LOW RESISTANCE SC (08:13)
[2023-06-21] MEDS: PROTONIX 40 MG PO (08:25)
[2023-06-21] MEDS: PLAVIX 75 MG PO (08:25)
[2023-06-21] MEDS: MAG-TAB SR 168 MG PO (08:25)
[2023-06-21] MEDS: COREG 6.25 MG PO (08:25)
[2023-06-21] MEDS: ASPIR LOW (ENTERIC COATED) 81 MG PO (08:25)
[2023-06-21] MEDS: COLCHICINE 0.299999999999999989 MG PO (08:25)
[2023-06-21] MEDS: LASIX 60 MG PO (08:25)
[2023-06-21] MEDS: HEPARIN 5000 UNITS SC (08:26)
[2023-06-21 08:45] LABS: Hematocrit 31.1 % (39.0-52.0); Hemoglobin 9.2 g/dL (13.0-18.0); Mean Corp Hgb Conc. 29.6 g/dL (33.0-37.0); Mean Corpuscular Volume 74.4 fL (80.0-94.0); Mean Platelet Volume 11.2 fL (7.4-10.4); Platelet Count 299 10^3/uL (130-400); Red Blood Cell Count 4.18 10^6/uL (4.70-6.10); Red Cell Dist. Width 21.1 % (11.5-14.5); White Blood Cell Count 6.1 10^3/uL (4.8-10.8)
[2023-06-21 09:13] LABS: Blood Urea Nitrogen 49 mg/dl (9-20); Calcium 9.4 mg/dl (8.4-10.2); Carbon Dioxide 29 mmol/L (22-30); Chloride 96 mmol/L (98-107); Estimated Creatinine Clearance 32 ml/min; Glucose 109 mg/dl (70-99); Potassium 4.1 mmol/L (3.5-5.1); Sodium 137 mmol/L (135-145); eGFR 37.12
[2023-06-21 11:25] LABS: Glucose - Point of Care 156 mg/dl (70-99)
[2023-06-21] MEDS: NOVOLOG FLEXPEN-LOW RESISTANCE 1 UNITS SC (11:48)
--- NOTE | 2023-06-21 12:15 | W.PN.HOSP.TC ---
Addendum entered and electronically signed by Jeison Smith MD 06/21/23 16:24:
[id number]
Original Note:
Today's Communication/Plan
-
Complete antibiotic course, cefdinir 3 mg twice daily for additional 4 days to complete 7-day course
At the spirometry
Follow-up PCP, pulmonary, cardiology outpatient
Radiographic imaging of the chest outpatient to assess for resolution
Assessment / Plan
Assessment / Plan
Physical Exam
General: Well Developed, Well Nourished and No Apparent Distress
HEENT: NormoCephalic, Moist mucous membranes and Atraumatic
Respiratory: Clear
Cardiac: S1/S2 and Regular Rhythm; No Murmur or Rub
GI: Soft, Non Tender, Non Distended and Normal Bowel Sounds; No Organomegaly
Rectal: Deferred by Provider
Musculoskeletal: No Clubbing, No Cyanosis and No Edema
Skin: No Rash
Neuro: Nonfocal/grossly intact
# Exertional dyspnea secondary to right medial lobe pneumonia/progressive anemia
#Hypoxia
-chest pain is pleuritic, sharp and upon inspiration, therefore doubt cardiac in nature
-Chest x-ray shows increased opacity medial aspect of the right lung base posteriorly consistent with pneumonic process
-Ceftriaxone/azithromycin - completed 3 days azithro; ceftriaxone - transition to cefdinir 300mg BID x 4 additional days to complete 7 days
-Incentive arleen
# Chronic Non-[place] troponin elevation in the setting of recent CAD/CKD/anemia/moderate to severe aortic stenosis
# History of CAD status post recent distal right coronary artery stent on 06/13/23
-EKG shows normal sinus rhythm, LVH with repolarization
� Cardiology consulted
�I suspect this is secondary to moderate-severe aortic stenosis, sepsis
� Trialed gentle diuresis, IV Lasix - switched back to PO lasix
� Treat medically/conservatively
-Continue aspirin, Plavix, Crestor, beta-tio
-not typical chest pain.
-F/u Cards outpatient
# Progressive microcytic anemia likely due to duodenal erosion in the setting of current aspirin/Plavix use
# History of duodenal erosion
-Hemoccult negative
-Hemoglobin 9.5 from 11 prior to catheterization, from 13.6 in June 2022
-Check iron studies, B12 and folate
-Iron transfusion; po iron outpatient
-Continue Protonix
-Will need to continue aspirin and Plavix due to recent cardiac stent, and would likely not be candidate for endoscopy at this time
-Continue to monitor hemoglobin as outpatient
#Hyponatremia
� Mild
� Mostly secondary pneumonia
� Continue to monitor
# Bilateral groin pain, now resolved
# Left groin hematoma
-Left groin duplex ultrasound without evidence of pseudoaneurysm or fistula
Chronic HFrEF
-Prior echo with EF of 45 to 50%
-Continue Lasix
Moderate to severe aortic stenosis
-Plan for TAVR once other medical conditions are optimized
History of TIA
Left carotid stenosis status post stent placement in February
# Left shoulder pain secondary to degenerative joint disease
-Pain due to calcified bursitis as per
-Continue tramadol
CKD 3
-Renal function at baseline
Essential hypertension
-Continue Coreg
Asthma
-Continue inhalers
Obstructive sleep apnea
History of tracheostomy
Hyperlipidemia
-Continue statin
Type 2 diabetes
-Hold glyburide
-Continue Levemir
-Insulin sliding scale
Gout
-Continue colchicine
History of gallbladder stones status post retrieval
Full code
DVT prophylaxis�HSQ
Cardiac diet
More than 30 minutes spent in discharge including
Final examination of the patient
Summarizing hospital stay
Instructions for continuing care to all relevant caregivers
Preparation of discharge records, prescriptions, and referral forms
Total time spent (35 in minutes):
Anticipated Discharge: Today
Subjective/Interval History
-
Date of Service: June 21, 2023
feels better, off o2
Objective Data
-
Labs:
Laboratory Results
06/21/23
06:26
WBC 6.1
Hgb 9.2 L
Hct 31.1 L
Plt Count 299 D
Sodium 137
Potassium 4.1
Chloride 96 L
Carbon Dioxide 29
BUN 49 H
Creatinine 1.8 H
Glucose 109 H
Calcium 9.4
Vital Signs:
Vital Signs
Temp Pulse Resp BP Pulse Ox
97.5 F 65 16 125/69 94
06/21/23 07:38 06/21/23 08:25 06/21/23 07:38 06/21/23 08:25 06/21/23 07:38
I&O
06/20/23 06/21/23 06/22/23
06:59 06:59 06:59
Intake Total 1420 / 1420 1380 / 1380
Balance 1420 / 1420 1380 / 1380
Review of Systems
-
History Source: Patient
All other systems: Not reviewed unless documented
Physical Exam
-
General: No Apparent Distress
HEENT: Moist Mucous Membranes
Respiratory: Clear to Auscultation
Cardiac: S1/S2 and Murmur (Aortic systolic); Negative Rub or JVD
GI: Soft, Nontender, Nondistended and Normal Bowel Sounds
Musculoskeletal: No Edema and Other (Right groin dressing in place - no hematoma/echymosis/swelling . No radial art site hematoma/swelling)
Neuro: Awake, Alert and No Motor Deficits
Data Reviewed
-
Diagnostic Radiology: Image personally visualized and interpreted and Report Reviewed by me
Labs: Labs Reviewed by me
--- NOTE | 2023-06-21 12:20 | W.DS.TRANS ---
DC Summary - [employer]ch[employer]
-
Discharge Instructions:
Discharge Diagnosis/Procedures Exertional dyspnea secondary to right medial
lobe pneumonia/progressive anemia
Diet Low Fiber,Low Cholesterol,Restrict fluids to 48
oz
Activity As tolerated
Blood Work cbc in 1 week with pcp
Instructions:
Stand-Alone Forms:
Changes to Home Medications: Yes
Discharge Medications:
DC Medications w/original date entered in [employer]
glyburide 5 mg tablet 10 mg PO DAILY Diabetes 06/01/13
albuterol sulfate 90 mcg/actuation aerosol inhaler (ProAir HFA) 2 puff inhalation R [id number] PRN sob 06/22/22
aspirin 81 mg tablet,delayed release 81 mg PO DAILY Blood clot prevention/tx 06/22/22
magnesium oxide 800 mg PO DAILY Supplement 06/22/22
acetaminophen 650 mg tablet,extended release 1,300 mg PO QPM pain 06/13/23
colchicine 0.6 mg tablet 0.3 mg PO DAILY Gout 06/13/23
cranberry 500 mg capsule 900 mg PO DAILY Supplement 06/13/23
evolocumab 140 mg/mL subcutaneous syringe (Repatha Syringe) 140 mg SC Q2W High Cholesterol 06/13/23
furosemide 20 mg tablet (Lasix) 60 mg PO BID Fluid Retention/Swelling 06/13/23
insulin detemir U-100 100 unit/mL (3 mL) subcutaneous pen (Levemir FlexPen) 14 unit SC QPM Diabetes 06/13/23
pantoprazole 40 mg tablet,delayed release (Protonix) 40 mg PO DAILY Gastrointestinal Issue 06/13/23
tramadol 50 mg tablet 50 mg PO QPM PRN SEVERE pain 06/13/23
carvedilol 6.25 mg tablet (Coreg) 6.25 mg PO BID Blood Pressure 06/17/23
clopidogrel 75 mg tablet (Plavix) 75 mg PO DAILY Blood Clot Prevention/Tx 06/17/23
nitroglycerin 0.4 mg sublingual tablet 0.4 mg sublingual [id number] PRN chest pain 06/17/23
rosuvastatin 5 mg tablet (Crestor) 5 mg PO MOWEFR cholesterol 06/17/23
cefdinir 300 mg capsule 300 mg PO BID 4 days #8 caps 06/21/23
ferrous sulfate 325 mg (65 mg iron) tablet 325 mg PO Q48H 30 days #15 tabs 06/21/23
Home Medication Changes
cefdinir 300 mg capsule 300 mg PO BID 4 days #8 caps 06/21/23
ferrous sulfate 325 mg (65 mg iron) tablet 325 mg PO Q48H 30 days #15 tabs 06/21/23
Pending Results: No
[2023-06-21] MEDS: FERRLECIT 110 MG IV (13:08)
--- NOTE | 2023-06-21 14:10 | CM ---
Patient seen bedside.
Patient denies VN needs.
IMM completed.
Plan:home no needs.
== END 2023-06-21 15:06 | disposition home or self-care (01) | DRG 194 ==
LOC: 4 WEST ACU 17:14
PROVIDERS: Physician Assistant; Registered Nurse; ADMITTING PHYSICIAN Hospitalist; ATTENDING PHYSICIAN Internal Medicine; CONSULT PHYSICIAN Internal Medicine Cardiovascular Disease; EMERGENCY PHYSICIAN Emergency Medicine; FAMILY PHYSICIAN Family Medicine
DX: J18.9 Pneumonia, unspecified organism (principal); E87.1 Hypo-osmolality and hyponatremia; I13.0 Hypertensive heart and chronic kidney disease with heart failure and stage 1 through stage 4 chronic kidney disease, or unspecified chronic kidney disease; I5A Non-ischemic myocardial injury (non-traumatic); L76.32 Postprocedural hematoma of skin and subcutaneous tissue following other procedure; I50.22 Chronic systolic (congestive) heart failure; R09.02 Hypoxemia; I25.10 Atherosclerotic heart disease of native coronary artery without angina pectoris; N18.32 Chronic kidney disease, stage 3b; I35.0 Nonrheumatic aortic (valve) stenosis; D63.1 Anemia in chronic kidney disease; E11.22 Type 2 diabetes mellitus with diabetic chronic kidney disease; G47.33 Obstructive sleep apnea (adult) (pediatric); E11.65 Type 2 diabetes mellitus with hyperglycemia; Z79.82 Long term (current) use of aspirin; Z79.84 Long term (current) use of oral hypoglycemic drugs; Z79.02 Long term (current) use of antithrombotics/antiplatelets; Z95.5 Presence of coronary angioplasty implant and graft; Z86.73 Personal history of transient ischemic attack (TIA), and cerebral infarction without residual deficits
CPT/HCPCS: 71046; 73030; 80048; 80053; 80061; 82607; 82728; 82746; 82962; 83036; 83540; 83550; 83880; 84145; 84484; 85025; 85027; 87040; 87070; 87502; 87811; 93005; 93926; 96360; 99285; J2916

== ENCOUNTER 2023-06-25 15:33 | Inpatient (IN) | payer BC, MEDICARE, SELFPAY ==
[2023-06-25] VITALS (17 sets, daily range): BP systolic 107–150; BP diastolic 49–122; BMI 30.9
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
[2023-06-25 08:49] LABS: Hematocrit 33.2 % (39.0-52.0); Hemoglobin 9.7 g/dL (13.0-18.0); Mean Corp Hgb Conc. 29.2 g/dL (33.0-37.0); Mean Corpuscular Hgb 22.5 pg (27.0-31.0); Mean Platelet Volume 10.3 fL (7.4-10.4); Platelet Count 323 10^3/uL (130-400); Red Blood Cell Count 4.31 10^6/uL (4.70-6.10); Red Cell Dist. Width 23.4 % (11.5-14.5); White Blood Cell Count 8.6 10^3/uL (4.8-10.8)
[2023-06-25 09:07] LABS: Anisocytosis 2+; Hypochromasia Slight; Macrocytosis 1+; Microcytosis 1+; Normal RBC Morphology No; Ovalocytes 1+; Poikilocytosis 1+; Polychromasia 1+
[2023-06-25 09:26] LABS: ALT (SGPT) 13 U/L (0-50); AST (SGOT) 27 U/L (17-59); Albumin 4.2 g/dl (3.5-5.0); Alkaline Phosphatase 72 U/L (38-126); Blood Urea Nitrogen 44 mg/dl (9-20); Calcium 9.6 mg/dl (8.4-10.2); Carbon Dioxide 24 mmol/L (22-30); Chloride 98 mmol/L (98-107); Estimated Creatinine Clearance 36 ml/min; Glucose 155 mg/dl (70-99); Potassium 4.6 mmol/L (3.5-5.1); Sodium 137 mmol/L (135-145); Total Bilirubin 0.7 mg/dl (0.2-1.3); Total Protein 6.7 g/dl (6.3-8.2); eGFR 37.12
[2023-06-25 09:36] LABS: NT-proBNP 6820 pg/ml
[2023-06-25] MEDS: BENADRYL 25 MG IV (10:40)
[2023-06-25] MEDS: LASIX 40 MG IV ×2 (10:53→18:39)
[2023-06-25 11:17] LABS: Urine Albumin Trace (Neg - Trace); Urine Bilirubin Negative (Negative); Urine Character Clear (Clear); Urine Color Yellow; Urine Glucose Negative (Negative); Urine Ketone Negative (Negative); Urine Leukocyte 2+ (Negative); Urine Nitrite Negative (Negative); Urine Occult Blood Negative (Negative); Urine Urobilinogen Negative (Neg - 1+)
[2023-06-25 11:37] LABS: Urine Bacteria Moderate (Negative); Urine White Cell 16-20 /HPF (0-5); Urine Yeast Few (Negative)
--- NOTE | 2023-06-25 14:13 | HPS.HSE ---
Family Physician
-
Family Physician: Danielle Samayoa
Chief Complaint
-
Shortness of breath
History of Present Illness
83-year-old male was recently admitted to hospital is presenting from home with complaints of shortness of breath, claustrophobia and generalized complaining of ' not feeling right.' Patient was recently admitted to the hospital with pneumonia and
was discharged on antibiotics. Patient has been taking albuterol inhaler at home as prescribed. This morning stated claustrophobia with acute episode of shortness of breath. Upon discharge on last admission patient went to see CT surgery for
aortic valve replacement. Patient also states of abdominal distention. Denies any nausea or vomiting. Had a bowel movement earlier today. Denies any chest pain.
Medical History
Past Medical History
Past Medical History: Reports Other
Additional Past Medical History:
Chronic non-[place] troponin elevation
CAD
Anemia
Moderate to severe aortic stenosis
Microcytic anemia
Hyponatremia
Groin pain
Chronic HFrEF
Left carotid artery stenosis status post stent placement
Chronic kidney disease stage III
Asthma
Hypertension
Obstructive sleep apnea
Hyperlipidemia
Diabetes mellitus
Gout
Past Surgical History: Reports Other
Additional Past Surgical History:
Left carotid artery stenosis status post stent placement
Social History
Tobacco: Non-smoker
Alcohol: None
Personal: (54 YEARS )
Living: With Family
Family History
Family History: Not pertinent
Allergies / Home Medications
Allergies reflects when Allergies were last updated in [employer].
Home Medications with original date entered in [employer]
Allergy/Medication List:
Allergies
Allergy/AdvReac Type Severity Reaction Status Date / Time
amlodipine besylate Allergy Edema Verified 06/13/23 07:30
[From Norvasc]
benazepril HCl Allergy Bradycardia Verified 06/13/23 07:30
[From Lotensin]
clonidine HCl [From Catapres] Allergy SEVERE Verified 06/13/23 07:30
FATIGUE
doxazosin Allergy Shortness Verified 06/13/23 07:30
of breath,
swollen
hands
doxycycline Allergy Upset Verified 06/13/23 07:30
Stomach
hydrochlorothiazide Allergy Renal Verified 06/13/23 07:30
Insufficiency
lisinopril Allergy Tongue Verified 06/13/23 07:30
Swelling
metoprolol tartrate Allergy SEVERE Verified 06/13/23 07:30
[From Lopressor] Fatigue
niacin Allergy Rash Verified 06/13/23 07:30
semaglutide [From Ozempic] Allergy Gall Verified 06/13/23 07:30
Bladder
dx/stones,
cholecystitis
spironolactone Allergy Gynocosmast Verified 06/13/23 07:30
[From Aldactone] ia
Hwmascy-OEH-DcZ Reductase Allergy Myalgias Verified 06/13/23 07:30
Inhibitor
[Yptpfsw-Xpj-Wjy Reductase
Inhibitor]
Home Medications
glyburide 5 mg tablet 10 mg PO BID Diabetes 06/01/13
aspirin 81 mg tablet,delayed release 81 mg PO DAILY Blood clot prevention/tx 06/22/22
magnesium oxide 800 mg PO DAILY Supplement 06/22/22
colchicine 0.6 mg tablet 0.3 mg PO DAILY Gout 06/13/23
evolocumab 140 mg/mL subcutaneous syringe (Repatha Syringe) 140 mg SC Q2W High Cholesterol 06/13/23
furosemide 20 mg tablet (Lasix) 60 mg PO BID@0500,1700 Fluid Retention/Swelling 06/13/23
insulin detemir U-100 100 unit/mL (3 mL) subcutaneous pen (Levemir FlexPen) 14 unit SC QPM Diabetes 06/13/23
pantoprazole 40 mg tablet,delayed release (Protonix) 40 mg PO DAILY Gastrointestinal Issue 06/13/23
tramadol 50 mg tablet 50 mg PO HSPRN PRN SEVERE pain 06/13/23
carvedilol 6.25 mg tablet (Coreg) 6.25 mg PO BID Blood Pressure 06/17/23
clopidogrel 75 mg tablet (Plavix) 75 mg PO DAILY Blood Clot Prevention/Tx 06/17/23
rosuvastatin 5 mg tablet (Crestor) 5 mg PO MOWEFR@0800 cholesterol 06/17/23
cefdinir 300 mg capsule 300 mg PO BID 4 days #8 caps 06/21/23
acetaminophen 650 mg tablet,extended release 1,300 mg PO QPM 06/25/23
albuterol sulfate 2.5 mg/3 mL (0.083 %) solution for nebulization 2.5 mg inhalation .SEE BELOW PRN sob 06/25/23
cranberry fruit 450 mg tablet (cranberry) 900 mg PO DAILY 06/25/23
ferrous sulfate 325 mg (65 mg iron) tablet 325 mg PO Q48H@0800 06/25/23
polyethylene glycol 3350 17 gram oral powder packet (Miralax) 17 g PO DAILY PRN constipation 06/25/23
Review of Systems
-
A 12 point ROS was completed and negative except as noted: Yes
Physical Exam
Vital Signs
Vital Signs
Temp Pulse Resp BP Pulse Ox
97.5 F 72 28 147/100 96
06/25/23 08:24 06/25/23 12:32 06/25/23 12:32 06/25/23 11:00 06/25/23 12:32
Physical Exam
General: Well Developed, Well Nourished and No Apparent Distress
HEENT: NormoCephalic, Moist mucous membranes and Atraumatic
Respiratory: Rhonchi and Other (OXYGEN)
Cardiac: S1/S2 and Regular Rhythm; No Murmur or Rub
GI: Soft, Non Tender, Non Distended and Normal Bowel Sounds; No Organomegaly
Rectal: Deferred by Provider
Musculoskeletal: No Clubbing, No Cyanosis and No Edema
Skin: Warm; No Rash
Neuro: Awake, No Motor Deficits and Nonfocal/grossly intact
Psych: Anxious
Laboratory Results
-
06/25/23 08:40
06/25/23 08:40
Laboratory Results
Total Bilirubin 0.7 mg/dl (0.2-1.3) 06/25/23 08:40
AST 27 U/L (17-59) 06/25/23 08:40
ALT 13 U/L (0-50) 06/25/23 08:40
Alkaline Phosphatase 72 U/L (38-126) 06/25/23 08:40
Impression/Plan
-
#Acute on Chronic HFrEF
#moderate to severe aortic stenosis
#History of CAD status post recent distal right coronary artery stent on 06/13/23
-Prior echo with EF of 45 to 50%
-Start Lasix 40mg IV BID
-ongoing OP valve eval.
-CXR with worsening edema pulm.
-Probnp mildly elevated compared to previous admit.
-Continue aspirin, Plavix and statin.
-Cards eval.
# Concern for pleural effusion
-Check ultrasound of the chest. If Positive provide for thoracentesis.
#Abdomen Distention
-CT scan -Cholelithiasis with large gallstone, without overt CT evidence for acute cholecystitis. Questionable choledocholithiasis. Consider further evaluation with MRCP.
-AST ALT and T. bili within normal. GI eval.
#Recent pneumonia
-complete abx course
History of TIA
Left carotid stenosis status post stent placement in February
CKD 3
-Renal function at baseline
Essential hypertension
-Continue Coreg
Asthma
-hold inhalers.
Obstructive sleep apnea
History of tracheostomy
Hyperlipidemia
-Continue statin
Type 2 diabetes
-Hold glyburide
-Continue Levemir
-Insulin sliding scale
Gout
-Continue colchicine
History of gallbladder stones status post retrieval
Full code
DVT prophylaxis�HSQ
d/w with spouse at bedside in details
I spent a total of 78 minutes with the patient or on the floor. More than 50% of this time involved counseling and coordination of care.
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
[2023-06-25] MEDS: LOVENOX 40 MG SC (18:40)
[2023-06-25] MEDS: NOVOLOG FLEXPEN-LOW RESISTANCE SC (18:42)
[2023-06-25] MEDS: TYLENOL 1000 MG PO (18:42)
[2023-06-25 18:43] LABS: Glucose - Point of Care 85 mg/dl (70-99)
[2023-06-25] MEDS: COREG 6.25 MG PO (20:12)
[2023-06-25] MEDS: OMNICEF 300 MG PO (20:15)
[2023-06-25 21:57] LABS: Glucose - Point of Care 201 mg/dl (70-99)
[2023-06-25] MEDS: LANTUS 0.0700000000000000067 UNITS SC (22:26)
[2023-06-26 03:00] VITALS: BP 114/66
[2023-06-26 06:00] VITALS: BMI 30.9
[2023-06-26 06:09] LABS: % Basophils 0.8 % (0-2); % Eosinophils 4.1 % (0-6); % Immature Granulocytes 0.8 % (0-0.5); % Monocytes 9.5 % (1.7-9.3); % Neutrophils 64.8 % (42.2-75.2); Absolute Basophils 0.1 10^3/uL (0-0.2); Absolute Eosinophils 0.3 10^3/uL (0-0.7); Absolute Immature Granulocytes 0.1 10^3/uL (0-0.05); Absolute Lymphocytes 1.5 10^3/uL (1.2-3.4); Absolute Monocytes 0.7 10^3/uL (0.1-0.6); Absolute Neutrophils 4.8 10^3/uL (1.4-6.5); Hematocrit 33.3 % (39.0-52.0); Hemoglobin 9.9 g/dL (13.0-18.0); Mean Corp Hgb Conc. 29.7 g/dL (33.0-37.0); Mean Corpuscular Hgb 22.2 pg (27.0-31.0); Mean Corpuscular Volume 74.7 fL (80.0-94.0); Mean Platelet Volume 10.2 fL (7.4-10.4); Nucleated Red Blood Cells % 0 % (-); Platelet Count 320 10^3/uL (130-400); Red Blood Cell Count 4.46 10^6/uL (4.70-6.10); Red Cell Dist. Width 23.9 % (11.5-14.5); White Blood Cell Count 7.4 10^3/uL (4.8-10.8)
[2023-06-26 06:35] LABS: ALT (SGPT) 12 U/L (0-50); AST (SGOT) 22 U/L (17-59); Alkaline Phosphatase 70 U/L (38-126); Blood Urea Nitrogen 39 mg/dl (9-20); Calcium 9.6 mg/dl (8.4-10.2); Carbon Dioxide 27 mmol/L (22-30); Chloride 100 mmol/L (98-107); Estimated Creatinine Clearance 34 ml/min; Glucose 83 mg/dl (70-99); Magnesium 2.8 mg/dl (1.6-2.3); Potassium 4.2 mmol/L (3.5-5.1); Sodium 140 mmol/L (135-145); Total Bilirubin 0.7 mg/dl (0.2-1.3); Total Protein 6.6 g/dl (6.3-8.2); eGFR 37.12
[2023-06-26 07:00] VITALS: BP 126/62
[2023-06-26 07:22] LABS: Glucose - Point of Care 93 mg/dl (70-99)
[2023-06-26] MEDS: NOVOLOG FLEXPEN-LOW RESISTANCE SC (08:19)
[2023-06-26] MEDS: MAGNESIUM OXIDE 750 MG PO (08:20)
[2023-06-26] MEDS: COLCHICINE 0.299999999999999989 MG PO (08:21)
[2023-06-26] MEDS: COREG 6.25 MG PO ×2 (08:21→20:46)
[2023-06-26] MEDS: LASIX 40 MG IV (08:21)
[2023-06-26] MEDS: ASPIR LOW (ENTERIC COATED) 81 MG PO (08:23)
[2023-06-26] MEDS: PROTONIX 40 MG PO (08:23)
[2023-06-26] MEDS: PLAVIX 75 MG PO (08:23)
[2023-06-26 11:00] VITALS: BP 121/60
--- NOTE | 2023-06-26 11:06 | W.PN.HOSP.TC ---
Today's Communication/Plan
-
Lasix per cardiology
Monitor creatinine
Wean oxygen as tolerated
Assessment / Plan
Assessment / Plan
#Acute on Chronic HFrEF
#moderate to severe aortic stenosis
#History of CAD status post recent distal right coronary artery stent on 06/13/23
# Acute hypoxic respiratory insufficiency
-Prior echo with EF of 45 to 50%
-Started Lasix 40mg IV BID can switch to p.o. evening or tomorrow will defer to cardiology
-ongoing OP valve� eval.
-CXR with worsening edema pulm.
-Probnp mildly elevated compared to previous admit.
-Continue aspirin, Plavix and statin. Monitor creatinine closely as patient undergoing CT eval for TAVR as outpatient
-Cards eval.
# Concern for pleural effusion
- ultrasound of the chest with small effusions
#Abdomen Distention
-CT scan -Cholelithiasis with large gallstone, without overt CT evidence for acute cholecystitis. Questionable choledocholithiasis. Consider further evaluation with MRCP.
-AST ALT and T. bili within normal.�
-Patient stated he was evaluated in the past at [facility] and was told he has big stone in gallbladder. Currently without abdominal pain nausea vomiting. Tolerating diet.
-Defer MRCP to GI.
#Recent pneumonia
-complete abx course
#microcytic anemia likely due to duodenal erosion in the setting of current aspirin/Plavix use
Hemoglobin stable at 9.9
History of TIA
Left carotid stenosis status post stent placement in February
CKD 3
-Renal function at baseline
Essential hypertension
-Continue Coreg
Asthma
-hold inhalers.
-Consider using as needed as with anxiety post inhaler usage
Obstructive sleep apnea
History of tracheostomy
Hyperlipidemia
-Continue statin
Type 2 diabetes
-Hold glyburide
-Continue Levemir
-Insulin sliding scale
Gout
-Continue colchicine
History of gallbladder stones status post retrieval
Full code
DVT prophylaxis�HSQ
d/w with spouse
Discussed with cardiology
Anticipated Discharge: > 48 hours
Subjective/Interval History
-
Date of Service: June 26, 2023
She is an emotional earlier today
States breathing has improved
States frustrated with his chronic medical conditions
Objective Data
-
Labs:
Laboratory Results
06/26/23
05:28
WBC 7.4
Hgb 9.9 L
Hct 33.3 L
Plt Count 320
Sodium 140
Potassium 4.2
Chloride 100
Carbon Dioxide 27
BUN 39 H
Creatinine 1.8 H
Glucose 83
Calcium 9.6
Total Bilirubin 0.7
AST 22
ALT 12
Alkaline Phosphatase 70
Vital Signs:
Vital Signs
Temp Pulse Resp BP Pulse Ox
97.4 F 68 18 126/62 97
06/26/23 07:00 06/26/23 07:00 06/26/23 07:00 06/26/23 07:00 06/26/23 07:00
I&O
06/25/23 06/26/23 06/27/23
06:59 06:59 06:59
Intake Total 960 / 960
Balance 960 / 960
Physical Exam
-
General: Well Developed, Well Nourished and No Apparent Distress
HEENT: Normocephalic, Atraumatic and Moist Mucous Membranes
Respiratory: Clear to Auscultation
Cardiac: Regular Rhythm, S1/S2 and Murmur (Aortic systolic); Negative Rub or JVD
GI: Soft, Nontender, Nondistended and Normal Bowel Sounds
Musculoskeletal: No Edema
Neuro: Awake, Alert, Oriented, AO x 3 and No Motor Deficits
Psych: Anxious
Data Reviewed
-
Total Time Spent with Patient (in minutes): 56
[2023-06-26 12:01] LABS: Glucose - Point of Care 204 mg/dl (70-99)
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
[2023-06-26] MEDS: NOVOLOG FLEXPEN-LOW RESISTANCE 2 UNITS SC (12:43)
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
--- NOTE | 2023-06-26 14:38 | CM ---
Chart reviewed and spoke with pt and his at bedside
Pt reports living in a 2 story home with his
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
DME includes - quad cane x2, rolling walker x2
Reports was at [facility] in past and had HH with [facility] in past
PCP - Dr Juju Samayoa
Pharm -[facility], [place]
Will have ride at d/c -
Plan - Anticipate home- no needs
[2023-06-26 15:00] VITALS: BP 126/71
[2023-06-26] MEDS: MICRONASE 10 MG PO (16:48)
[2023-06-26] MEDS: LASIX 60 MG PO (16:48)
[2023-06-26] MEDS: TYLENOL 1000 MG PO (16:51)
[2023-06-26] MEDS: LOVENOX 40 MG SC (16:51)
[2023-06-26 16:55] LABS: Glucose - Point of Care 158 mg/dl (70-99)
[2023-06-26] MEDS: NOVOLOG FLEXPEN-LOW RESISTANCE 1 UNITS SC (16:55)
[2023-06-26 19:00] VITALS: BP 109/56
[2023-06-26] MEDS: ULTRAM 50 MG PO (20:47)
[2023-06-26 21:27] LABS: Glucose - Point of Care 204 mg/dl (70-99)
[2023-06-26] MEDS: LANTUS 0.140000000000000013 UNITS SC (21:28)
[2023-06-26 23:00] VITALS: BP 105/53
[2023-06-27] VITALS (7 sets, daily range): BP systolic 107–135; BP diastolic 52–76; BMI 31.9; BMI 30.8
[2023-06-27 06:07] LABS: % Basophils 0.9 % (0-2); % Eosinophils 4.6 % (0-6); % Immature Granulocytes 0.4 % (0-0.5); % Lymphocytes 25.7 % (20.5-51.1); % Monocytes 11.9 % (1.7-9.3); % Neutrophils 56.5 % (42.2-75.2); Absolute Basophils 0.1 10^3/uL (0-0.2); Absolute Eosinophils 0.3 10^3/uL (0-0.7); Absolute Lymphocytes 1.4 10^3/uL (1.2-3.4); Absolute Monocytes 0.6 10^3/uL (0.1-0.6); Hematocrit 32.2 % (39.0-52.0); Hemoglobin 9.4 g/dL (13.0-18.0); Mean Corp Hgb Conc. 29.2 g/dL (33.0-37.0); Mean Corpuscular Hgb 22.5 pg (27.0-31.0); Mean Platelet Volume 10.7 fL (7.4-10.4); Nucleated Red Blood Cells % 0 % (-); Platelet Count 312 10^3/uL (130-400); Red Blood Cell Count 4.18 10^6/uL (4.70-6.10); Red Cell Dist. Width 23.7 % (11.5-14.5); White Blood Cell Count 5.4 10^3/uL (4.8-10.8)
[2023-06-27 06:34] LABS: ALT (SGPT) 11 U/L (0-50); AST (SGOT) 18 U/L (17-59); Albumin 3.7 g/dl (3.5-5.0); Alkaline Phosphatase 60 U/L (38-126); Blood Urea Nitrogen 38 mg/dl (9-20); Calcium 9.2 mg/dl (8.4-10.2); Carbon Dioxide 27 mmol/L (22-30); Chloride 100 mmol/L (98-107); Estimated Creatinine Clearance 34 ml/min; Glucose 97 mg/dl (70-99); Potassium 4.1 mmol/L (3.5-5.1); Sodium 138 mmol/L (135-145); Total Bilirubin 0.5 mg/dl (0.2-1.3); Total Protein 6.1 g/dl (6.3-8.2); eGFR 37.12
[2023-06-27 07:36] LABS: Glucose - Point of Care 133 mg/dl (70-99)
[2023-06-27] MEDS: LASIX 60 MG PO ×2 (08:09→15:58)
[2023-06-27] MEDS: COREG 6.25 MG PO ×2 (08:10→20:17)
[2023-06-27] MEDS: ASPIR LOW (ENTERIC COATED) 81 MG PO (08:10)
[2023-06-27] MEDS: CRESTOR 5 MG PO (08:10)
[2023-06-27] MEDS: PLAVIX 75 MG PO (08:10)
[2023-06-27] MEDS: PROTONIX 40 MG PO (08:11)
[2023-06-27] MEDS: MICRONASE 10 MG PO ×2 (08:11→15:59)
[2023-06-27] MEDS: COLCHICINE 0.299999999999999989 MG PO (08:11)
[2023-06-27] MEDS: NOVOLOG FLEXPEN-LOW RESISTANCE SC (08:12)
[2023-06-27] MEDS: MAGNESIUM OXIDE 750 MG PO (08:13)
--- NOTE | 2023-06-27 10:08 | W.PN.HOSP.TC ---
Today's Communication/Plan
-
Continue with diuretic
Plan for TAVR CAT scan today
Monitor labs in the morning
Assessment / Plan
Assessment / Plan
#Acute on Chronic HFrEF
#moderate to severe aortic stenosis
#History of CAD status post recent distal right coronary artery stent on 06/13/23
# Acute hypoxic respiratory insufficiency
-Prior echo with EF of 45 to 50%
-Cont lasix 60mg BID home regimen.
-CXR with worsening edema pulm.
-Probnp mildly elevated compared to previous admit.
-Continue aspirin, Plavix and statin.
-As part of severe aortic stenosis and to escalate TAVR evaluation due to patient being symptomatic TAVR CT scan ordered by cardiology. Pre and post hydration has been ordered. Monitor creatinine closely.
-Wean oxygen as tolerated. Plan For home oxygen evaluation today.
-Cards eval.
# Concern for pleural effusion
- ultrasound of the chest with small effusions.
#Abdomen Distention
-CT scan -Cholelithiasis with large gallstone, without overt CT evidence for acute cholecystitis. Questionable choledocholithiasis. Consider further evaluation with MRCP.
-AST ALT and T. bili within normal.�
-Patient stated he was evaluated in the past at [place] and was told he has big stone in gallbladder. Currently without abdominal pain nausea vomiting. Tolerating diet.
-no acute intervention required.
-OP GI follow up.
#Recent pneumonia
-complete abx course
#microcytic anemia likely due to duodenal erosion in the setting of current aspirin/Plavix use
Hemoglobin stable at 9.9
History of TIA
Left carotid stenosis status post stent placement in February
CKD 3
-Renal function at baseline. Monitor creatinine closely with diuretics and contrast exposure
Essential hypertension
-Continue Coreg
Asthma
-DC nhalers.
-Consider using as needed as with severe anxiety post inhaler usage
Obstructive sleep apnea
History of tracheostomy
Hyperlipidemia
-Continue statin
Type 2 diabetes
-Hold glyburide
-Continue Levemir
-Insulin sliding scale. POC 133.
Gout
-Continue colchicine
History of gallbladder stones status post retrieval
Full code
DVT prophylaxis�HSQ
Discussed with cardiology
Dispo-CAT scan today. Monitor labs in the morning. Cards recs
Anticipated Discharge: Within 24 hours
Subjective/Interval History
-
Date of Service: June 27, 2023
No overnight events
Oxygen removed to assess for home oxygenation need
Denies shortness of breath
states feeling better
Objective Data
-
Labs:
Laboratory Results
06/27/23
05:28
WBC 5.4
Hgb 9.4 L
Hct 32.2 L
Plt Count 312
Sodium 138
Potassium 4.1
Chloride 100
Carbon Dioxide 27
BUN 38 H
Creatinine 1.8 H
Glucose 97
Calcium 9.2
Total Bilirubin 0.5
AST 18
ALT 11
Alkaline Phosphatase 60
Vital Signs:
Vital Signs
Temp Pulse Resp BP Pulse Ox
97.2 F 60 18 135/76 100
06/27/23 07:00 06/27/23 07:00 06/27/23 07:00 06/27/23 07:00 06/27/23 07:00
I&O
06/26/23 06/27/23 06/28/23
06:59 06:59 06:59
Intake Total 960 / 960 960 / 960
Output Total 600 / 600
Balance 960 / 960 360 / 360
Physical Exam
-
General: Well Developed, Well Nourished and No Apparent Distress
HEENT: Normocephalic, Atraumatic and Moist Mucous Membranes; Negative Oxygen
Respiratory: Clear to Auscultation
Cardiac: Regular Rhythm, S1/S2 and Murmur (Aortic systolic); Negative Rub or JVD
GI: Soft, Nontender, Nondistended and Normal Bowel Sounds
Skin: Warm
Neuro: Awake, Alert, Oriented, AO x 3 and No Motor Deficits
Psych: Calm and Anxious
[2023-06-27] MEDS: NSS 500 IV (11:22)
--- NOTE | 2023-06-27 11:30 | W.PN.UPDATE ---
Update Note
Progress Note Update
d/w CT scan. arranged for TAVR chest CT at ~12:30PM today. ordered pre and post IVF and discussed with nurse. also d/w TAVR coordinator, patient and , hospitalist. 2nd part (CT A/P) will occur as OP, likely in 1-2 weeks. BMP next week to
reassess kidney function. will likely observe overnight due to hydration today in setting of CHF on arrival.
[2023-06-27 12:09] LABS: Glucose - Point of Care 159 mg/dl (70-99)
[2023-06-27] MEDS: NOVOLOG FLEXPEN-LOW RESISTANCE 1 UNITS SC (12:29)
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
--- NOTE | 2023-06-27 15:25 | CM ---
CM following for d/ planning
TAVR chest CT today
Will have ride home at d/c
CM will cont to follow
PLan - anticipate home no needs
[2023-06-27 16:46] LABS: Glucose - Point of Care 215 mg/dl (70-99)
[2023-06-27] MEDS: LOVENOX 40 MG SC (17:23)
[2023-06-27] MEDS: TYLENOL 1000 MG PO (17:23)
[2023-06-27] MEDS: NOVOLOG FLEXPEN-LOW RESISTANCE 2 UNITS SC (17:24)
[2023-06-27 21:30] LABS: Glucose - Point of Care 146 mg/dl (70-99)
[2023-06-27] MEDS: LANTUS 0.140000000000000013 UNITS SC (21:40)
[2023-06-27] MEDS: ULTRAM PO (21:41)
[2023-06-27] MEDS: ULTRAM 50 MG PO (22:49)
[2023-06-28] VITALS (8 sets, daily range): BP systolic 60–128; BP diastolic 55–72; PULSE 63; O2SAT 92; BMI 31.0
[2023-06-28 07:35] LABS: Glucose - Point of Care 101 mg/dl (70-99)
[2023-06-28] MEDS: LASIX 60 MG PO ×2 (08:07→17:11)
[2023-06-28] MEDS: PROTONIX 40 MG PO (08:08)
[2023-06-28] MEDS: ASPIR LOW (ENTERIC COATED) 81 MG PO (08:08)
[2023-06-28] MEDS: PLAVIX 75 MG PO (08:08)
[2023-06-28] MEDS: NOVOLOG FLEXPEN-LOW RESISTANCE SC (08:08)
[2023-06-28] MEDS: COLCHICINE 0.299999999999999989 MG PO (08:08)
[2023-06-28] MEDS: COREG 6.25 MG PO ×2 (08:08→20:29)
[2023-06-28] MEDS: MICRONASE 10 MG PO ×2 (08:08→17:11)
[2023-06-28] MEDS: MAGNESIUM OXIDE 750 MG PO (08:09)
[2023-06-28 08:11] LABS: % Basophils 1.1 % (0-2); % Eosinophils 4.1 % (0-6); % Immature Granulocytes 0.6 % (0-0.5); % Lymphocytes 23.3 % (20.5-51.1); % Monocytes 11.9 % (1.7-9.3); Absolute Basophils 0.1 10^3/uL (0-0.2); Absolute Eosinophils 0.2 10^3/uL (0-0.7); Absolute Lymphocytes 1.3 10^3/uL (1.2-3.4); Absolute Monocytes 0.6 10^3/uL (0.1-0.6); Absolute Neutrophils 3.2 10^3/uL (1.4-6.5); Hematocrit 33.7 % (39.0-52.0); Hemoglobin 9.8 g/dL (13.0-18.0); Mean Corp Hgb Conc. 29.1 g/dL (33.0-37.0); Mean Corpuscular Hgb 22.4 pg (27.0-31.0); Mean Corpuscular Volume 77.1 fL (80.0-94.0); Mean Platelet Volume 10.7 fL (7.4-10.4); Nucleated Red Blood Cells % 0 % (-); Platelet Count 307 10^3/uL (130-400); Red Blood Cell Count 4.37 10^6/uL (4.70-6.10); Red Cell Dist. Width 23.5 % (11.5-14.5); White Blood Cell Count 5.4 10^3/uL (4.8-10.8)
[2023-06-28 08:15] LABS: INR 1.17; PT 14.7 Sec (11.4-14.6)
[2023-06-28 08:30] LABS: ALT (SGPT) 11 U/L (0-50); AST (SGOT) 17 U/L (17-59); Alkaline Phosphatase 69 U/L (38-126); Blood Urea Nitrogen 39 mg/dl (9-20); Calcium 9.6 mg/dl (8.4-10.2); Carbon Dioxide 27 mmol/L (22-30); Chloride 100 mmol/L (98-107); Estimated Creatinine Clearance 32 ml/min; Glucose 107 mg/dl (70-99); Potassium 4.5 mmol/L (3.5-5.1); Sodium 138 mmol/L (135-145); Total Bilirubin 0.5 mg/dl (0.2-1.3); Total Protein 6.4 g/dl (6.3-8.2); eGFR 34.79
--- NOTE | 2023-06-28 10:53 | W.PN.HOSP.TC ---
Today's Communication/Plan
-
dc
Assessment / Plan
Assessment / Plan
Physical Exam
-
General: Well Developed, Well Nourished and No Apparent Distress
HEENT: Normocephalic, Atraumatic and Moist Mucous Membranes; Negative Oxygen
Respiratory: No wheezes.
Cardiac: Regular Rhythm, S1/S2 and Murmur (Aortic systolic); Negative Rub or JVD
GI: Soft, Nontender, Nondistended and Normal Bowel Sounds
Skin: Warm, no edema.
Neuro: Awake, Alert, Oriented, AO x 3 and No Motor Deficits
Psych: Calm
#Acute on Chronic HFrEF
#moderate to severe aortic stenosis
#History of CAD status post recent distal right coronary artery stent on 06/13/23
# Acute hypoxic respiratory insufficiency
-Prior echo with EF of 45 to 50%
-Cont Lasix 60mg BID home regimen.
-CXR with worsening edema pulm.
-Probnp mildly elevated compared to previous admit.
-Continue aspirin, Plavix and statin.
-As part of severe aortic stenosis and to escalate TAVR evaluation due to patient being symptomatic TAVR CT scan ordered by cardiology. Pre and post hydration has been ordered. Monitor creatinine closely.
-Wean oxygen as tolerated. Plan For home oxygen evaluation today.
- Appreciate cardiology input
# Concern for pleural effusion
- ultrasound of the chest with small effusions.
#Abdomen Distention
Resolved, tolerating diet
-CT scan -Cholelithiasis with large gallstone, without overt CT evidence for acute cholecystitis. Questionable choledocholithiasis. Consider further evaluation with MRCP.
-AST ALT and T. bili within normal.�
-Patient stated he was evaluated in the past at [place] and was told he has big stone in gallbladder. Currently without abdominal pain nausea vomiting. Tolerating diet.
-no acute intervention required.
-GI recommended OP follow up. No need for an emergency intervention
Appreciate GI input
#Recent pneumonia
-complete abx course
#microcytic anemia likely due to duodenal erosion in the setting of current aspirin/Plavix use
Hemoglobin stable at 9.9, stable.
History of TIA
Left carotid stenosis status post stent placement in February
CKD 3b
-Renal function at baseline. Monitor creatinine closely with diuretics and contrast exposure
Essential hypertension
-Continue Coreg
Asthma
-No wheezes.
-Consider using as needed as with severe anxiety post inhaler usage
Obstructive sleep apnea
History of tracheostomy
Hyperlipidemia
-Continue statin
Type 2 diabetes
- resumed glyburide
-Continue Levemir
-Insulin sliding scale. POC 133.
Gout
-Continue colchicine
History of gallbladder stones status post retrieval
Full code
DVT prophylaxis�HSQ
Discussed with cardiology
possible discharge today or tomorrow
Total time spent to see the patient, examine the patient on the floor, review data and lab results, discuss treatment plan with patient, nursing staff around 55 minutes
Anticipated Discharge: Within 24 hours
Subjective/Interval History
-
Date of Service: June 28, 2023
No chest pain
No sob
Objective Data
-
Labs:
Laboratory Results
06/28/23
06:52
WBC 5.4
Hgb 9.8 L
Hct 33.7 L
Plt Count 307
PT 14.7 H
INR 1.17
Sodium 138
Potassium 4.5
Chloride 100
Carbon Dioxide 27
BUN 39 H
Creatinine 1.9 H
Glucose 107 H
Calcium 9.6
Total Bilirubin 0.5
AST 17
ALT 11
Alkaline Phosphatase 69
Vital Signs:
Vital Signs
Temp Pulse Resp BP Pulse Ox
97.3 F 61 18 111/61 93
06/28/23 07:00 06/28/23 07:00 06/28/23 07:00 06/28/23 07:00 06/28/23 07:00
I&O
06/27/23 06/28/23 06/29/23
06:59 06:59 07:59
Intake Total 960 / 960 1080 / 1080
Output Total 600 / 600
Balance 360 / 360 1080 / 1080
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
--- NOTE | 2023-06-28 12:17 | CM ---
Addendum entered by Jessica Ocampo 06/28/23 12:50:
Unable to get Jardiance Cost via electronic system; notified Dr Crawford and explained that if he sends a script to patient's pharmacy the pharmacist would be able to provide cost over the phone. Attending replied that he would address script as
outpatient
Original Note:
Case Management Consult in process
Jardiance Cost
[2023-06-28 13:26] LABS: Glucose - Point of Care 162 mg/dl (70-99)
[2023-06-28] MEDS: NOVOLOG FLEXPEN-LOW RESISTANCE 1 UNITS SC (13:26)
[2023-06-28 13:29] LABS: Body Fluid LDH 105 U/L; Body Fluid Protein 2.1 g/dl; Body Fluid pH 7.51
[2023-06-28 13:40] LABS: Body Fluid Mononuclear 83.6 %; Body Fluid Polymorphonuclear 16.4 %; Body Fluid WBC 623 /CUMM
[2023-06-28 14:51] LABS: Body Fluid Second Tech AMA
[2023-06-28 16:54] LABS: Glucose - Point of Care 249 mg/dl (70-99)
[2023-06-28] MEDS: NOVOLOG FLEXPEN-LOW RESISTANCE 2 UNITS SC (17:12)
[2023-06-28] MEDS: TYLENOL 1000 MG PO (17:13)
[2023-06-28] MEDS: LOVENOX 40 MG SC (17:13)
[2023-06-28 22:25] LABS: Glucose - Point of Care 209 mg/dl (70-99)
[2023-06-28] MEDS: LANTUS 0.140000000000000013 UNITS SC (22:30)
[2023-06-28] MEDS: ULTRAM 50 MG PO (22:55)
[2023-06-29 01:08] LABS: Glucose - Point of Care 172 mg/dl (70-99)
[2023-06-29 03:00] VITALS: BP 116/58
[2023-06-29 06:00] VITALS: BMI 30.6
[2023-06-29 06:34] LABS: Glucose - Point of Care 108 mg/dl (70-99)
[2023-06-29 07:00] VITALS: BP 128/57
[2023-06-29] MEDS: COLCHICINE 0.299999999999999989 MG PO (08:07)
[2023-06-29] MEDS: MICRONASE 10 MG PO (08:07)
[2023-06-29] MEDS: PROTONIX 40 MG PO (08:07)
[2023-06-29] MEDS: ASPIR LOW (ENTERIC COATED) 81 MG PO (08:07)
[2023-06-29] MEDS: NOVOLOG FLEXPEN-LOW RESISTANCE SC ×2 (08:07→13:21)
[2023-06-29] MEDS: PLAVIX 75 MG PO (08:08)
[2023-06-29] MEDS: COREG 6.25 MG PO (08:09)
[2023-06-29] MEDS: LASIX 60 MG PO (08:09)
[2023-06-29 11:00] VITALS: BP 127/65
--- NOTE | 2023-06-29 11:26 | W.DCSUMMARY ---
Discharge Summary
Discharge Data
Date of Admission: 06/25/23
Date of Discharge: 06/29/23
-
Pending Results: No
Hospital Course
83 years old male admitted with shortness of breath. Patient was diagnosed with acute on chronic heart failure with reduced ejection fraction. Patient received intravenous steroid. Imaging study of the chest showed a small left pleural effusion
with moderate-sized right pleural effusion. He underwent right thoracentesis and drained around 1 L of fluid. Patient was seen by outside sales engineer for large gold bladder stone. Patient did not have abdominal pain. He tolerated diet. Normal
liver function test. Student Activities Director recommended to continue monitoring and follow-up as outpatient after treating his critical aortic stenosis. Heat Treat Technician followed the patient. Patient did not have shortness of breath anymore. The plan was
to continue workup for aortic valve repair in the outpatient setting. Patient remained hemodynamically stable. Renal function was monitored. Creatinine upon discharge was between 1.8-1.9. Hemoglobin was stable around 9. Patient was discharged
in a stable condition.
Physical Exam
-
General: No Apparent Distress
HEENT: Normocephalic, Atraumatic and Moist Mucous Membranes; Negative Oxygen
Respiratory: No wheezes. Good air entry both sides. No wheezes heard.
Cardiac: Regular Rhythm, S1/S2 and Murmur (Aortic systolic); Negative Rub or JVD
GI: Soft, Nontender, Nondistended and Normal Bowel Sounds
Skin: Warm, no edema.
Neuro: Awake, Alert, Oriented, AO x 3 and No Motor Deficits, he followed commands.
Psych: Calm
Total discharge time spent to see the patient, examine the patient on the floor, review data and lab results, discuss discharge plan with patient, nursing staff around 65 minutes
Discharge Plan
-
Patient Disposition: Home (Routine Discharge)
Discharge Diagnosis/Procedures: You presented with increasing shortness of breath. You have acute on chronic heart failure with reduced ejection fraction, severe aortic stenosis. You had thoracentesis to the right pleural effusion. Your kidney
function remained stable with creatinine 1.8-1.9.
You are seen by outside sales engineer for gallbladder stone. You did not need emergent procedure for that. Student Activities Director recommended observation until you treat your aortic valve.
Your magnesium level was high and magnesium supplement was discontinued.
Diet: Low Fat, 2 Gram Sodium and Restrict fluids to 48 oz
Blood Work: PLEASE HAVE BLOODWORK DRAWN ON 07/04/2023. THIS DOES NOT NEED TO BE FASTING. PLEASE HAVE RESULTS FAXED TO [phone].
Others Tests: A CT scan has been scheduled for you at [facility] on 07/10/2023. Please report to outpatient infusion department, [address], in the [facility] at 8:30am. Please do not eat or drink anything after 6:30am. Please bring a complete
list of your medications with you to your visit.
Specialty Instructions: Weigh Daily- Call MD for wt gain/loss 3 lbs overnight/5 lbs in 1 week
Instructions: *DCA Heart Failure Instructions
Referrals:
Michelle Alvarez PA-C [Specified Professional Personl] - 07/07/23 11:00 am (You have a cardiology follow-up appointment at the [facility] office with Dr. Crawford's physician inventory assistant, Michelle. Please call with questions)
Danielle Samayoa MD [Family Provider] - in one to two weeks
Prescriptions:
Continued
glyburide 5 MG tablet
10 mg PO BID
Patient Comments:
aspirin 81 mg Tablet,Delayed Release (Dr/Ec)
81 mg PO DAILY
tramadol 50 mg Tablet
50 mg PO HSPRN PRN (Reason: SEVERE pain)
Patient Comments:
06/25/2023, pt. filled this med. on 03/27/2023 for 21 tablets per PDMP.
pantoprazole [Protonix] 40 mg Tablet,Delayed Release (Dr/Ec)
40 mg PO DAILY
furosemide [Lasix] 20 mg Tablet
60 mg PO BID@0500,1700
colchicine 0.6 mg Tablet
0.3 mg PO DAILY
Levemir FlexPen 100 unit/mL (3 mL) Insulin Pen
14 unit SC QPM
Repatha Syringe 140 mg/mL Syringe
140 mg SC Q2W
carvedilol [Coreg] 6.25 mg Tablet
6.25 mg PO BID
rosuvastatin [Crestor] 5 mg tablet
5 mg PO MOWEFR@0800
clopidogrel [Plavix] 75 mg tablet
75 mg PO DAILY
acetaminophen 650 mg Tablet Extended Release
1,300 mg PO QPM
cranberry 450 mg Tablet
900 mg PO DAILY
ferrous sulfate 325 mg (65 mg iron) tablet
325 mg PO Q48H@0800
albuterol sulfate 2.5 mg /3 mL (0.083 %) Solution For Nebulization
2.5 mg INHALATION .SEE BELOW PRN (Reason: sob)
Patient Comments:
06/25/2023, prescribed Q4HPRN; however, per spouse, pt. has been taking Q12H@0500,1700.
polyethylene glycol 3350 [Miralax] 17 gram Powder In Packet
17 g PO DAILY PRN (Reason: constipation)
Discontinued
magnesium oxide 400 mg magnesium Tablet
800 mg PO DAILY
cefdinir 300 mg capsule
300 mg PO BID 4 Days Qty: 8 0RF
Patient Comments:
06/25/2023, pt. filled this med. on 06/21/2023 and is instructed to take one capsule BID for 4 days; per spouse, last dose is scheduled to be taken tonight.
Discharge Orders:
Discharge Patient (As Directed); Ordered 06/29/23
Ordered By: Emeli Castaneda
[2023-06-29 11:35] LABS: Glucose - Point of Care 130 mg/dl (70-99)
--- NOTE | 2023-06-29 12:30 | CM ---
Met with patient and at bedside
Plan: discharge to home; declined offer for Home Health Services
will provide transport home
IMM benefit explained; form signed @ 1228
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
--- NOTE | 2023-07-04 13:33 | W.HF.CON ---
Heart Failure
- LV Function
Left ventricular function study result: LV Ejection fraction >40%
Ejection Fraction Percentage: 45-50
- ARNI
Patient already on ARNI: No
Heart Failure ARNI Not Indicated: LV Ejection Fraction >/= 40%
- ACEI/ARB
Patient already on ACEI/ARB: No
Heart Failure ACEI/ARB Not Indicated: LV Ejection Fraction > 40%
- Beta Juanita
Patient already on Evidence Based Beta Juanita: Yes
- Mineralocorticord Receptor Antagonist
Patient already on MRA: No
Heart Failure MRA Not Indicated: LV Ejection Fraction > 40%
- SGLT-2 Inhibitor
Patient already on SGLT-2 Inhibitor: No
Heart Failure SGLT-2 Inhibitor Not Indicated: LV Ejection Fraction >40%
- NYHA CHF Classification
NYHA CHF Classification Level: Class III - Symptoms w/ min exertion, interferes w/ nml daily activity (severe )
- ACC/AHA Stage
ACC/AHA Stage: Stage C: Symptomatic Heart Failure
--- NOTE | 2023-07-04 13:34 | HFEDUCATE ---
Pt had F/U appt schedule for 07/02/23 at 11:00AM with Sebastian Campos.
== END 2023-06-29 15:37 | disposition home or self-care (01) | DRG 291 ==
LOC: 3 WEST ACU 15:33
PROVIDERS: Nurse Practitioner; ADMITTING PHYSICIAN Hospitalist; ATTENDING PHYSICIAN Internal Medicine; CONSULT PHYSICIAN Internal Medicine Cardiovascular Disease; CONSULT PHYSICIAN Internal Medicine Gastroenterology; EMERGENCY PHYSICIAN Emergency Medicine; FAMILY PHYSICIAN Family Medicine
DX: I13.0 Hypertensive heart and chronic kidney disease with heart failure and stage 1 through stage 4 chronic kidney disease, or unspecified chronic kidney disease (principal); I50.23 Acute on chronic systolic (congestive) heart failure; K80.10 Calculus of gallbladder with chronic cholecystitis without obstruction; I35.0 Nonrheumatic aortic (valve) stenosis; I25.10 Atherosclerotic heart disease of native coronary artery without angina pectoris; R09.02 Hypoxemia; D50.9 Iron deficiency anemia, unspecified; N18.30 Chronic kidney disease, stage 3 unspecified; E11.22 Type 2 diabetes mellitus with diabetic chronic kidney disease; J45.909 Unspecified asthma, uncomplicated; G47.33 Obstructive sleep apnea (adult) (pediatric); E78.00 Pure hypercholesterolemia, unspecified; M10.9 Gout, unspecified; Z86.73 Personal history of transient ischemic attack (TIA), and cerebral infarction without residual deficits; Z95.5 Presence of coronary angioplasty implant and graft; Z79.82 Long term (current) use of aspirin; Z79.02 Long term (current) use of antithrombotics/antiplatelets
CPT/HCPCS: 32555; 70450; 71045; 74176; 75572; 76604; 80053; 81003; 81015; 82962; 83615; 83735; 83880; 83986; 84157; 85025; 85610; 87015; 87070; 87086; 87205; 89051; 93005; 96374; 96375; 97116; 97163; 99285; Q9967

== ENCOUNTER 2023-06-30 04:18 | Inpatient (IN) | payer BC, MEDICARE, SELFPAY ==
[2023-06-29 23:43] VITALS: BMI 26.5
[2023-06-29 23:48] VITALS: BP 134/74
[2023-06-30] VITALS (17 sets, daily range): BP systolic 111–148; BP diastolic 54–82; PULSE 61–89; O2SAT 100; BMI 28.7
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
[2023-06-30 02:46] LABS: % Basophils 0.9 % (0-2); % Eosinophils 2.9 % (0-6); % Immature Granulocytes 0.3 % (0-0.5); % Lymphocytes 22.3 % (20.5-51.1); % Monocytes 8.8 % (1.7-9.3); % Neutrophils 64.8 % (42.2-75.2); Absolute Basophils 0.1 10^3/uL (0-0.2); Absolute Eosinophils 0.2 10^3/uL (0-0.7); Absolute Lymphocytes 1.6 10^3/uL (1.2-3.4); Absolute Monocytes 0.6 10^3/uL (0.1-0.6); Absolute Neutrophils 4.5 10^3/uL (1.4-6.5); Hematocrit 32.6 % (39.0-52.0); Mean Corp Hgb Conc. 30.7 g/dL (33.0-37.0); Mean Corpuscular Hgb 22.5 pg (27.0-31.0); Mean Corpuscular Volume 73.4 fL (80.0-94.0); Nucleated Red Blood Cells % 0 % (-); Platelet Count 310 10^3/uL (130-400); Red Blood Cell Count 4.44 10^6/uL (4.70-6.10); Red Cell Dist. Width 23.5 % (11.5-14.5)
[2023-06-30 03:01] LABS: ALT (SGPT) 11 U/L (0-50); AST (SGOT) 18 U/L (17-59); Albumin 3.9 g/dl (3.5-5.0); Alkaline Phosphatase 65 U/L (38-126); Blood Urea Nitrogen 46 mg/dl (9-20); Calcium 9.7 mg/dl (8.4-10.2); Carbon Dioxide 25 mmol/L (22-30); Chloride 101 mmol/L (98-107); Estimated Creatinine Clearance 32 ml/min; Glucose 95 mg/dl (70-99); Potassium 3.9 mmol/L (3.5-5.1); Sodium 138 mmol/L (135-145); Total Bilirubin 0.5 mg/dl (0.2-1.3); Total Protein 6.4 g/dl (6.3-8.2); eGFR 37.12
[2023-06-30 03:14] LABS: NT-proBNP 7070 pg/ml; Troponin I 0.046 ng/ml
[2023-06-30 03:35] LABS: Anisocytosis 1+; Hypochromasia 1+; Macrocytosis 1+; Ovalocytes 1+; Target Cells Occasional
[2023-06-30 03:37] LABS: Normal RBC Morphology No
--- NOTE | 2023-06-30 04:11 | HPS.HSE ---
Family Physician
-
Family Physician: Danielle Samayoa
Chief Complaint
-
SOB, Anxiety
History of Present Illness
Patient is an 83y M with PMH significant for ASCVD, chronic HFrEF and severe aortic stenosis who presents to ED complaining of SOB and anxiety. History obtained from patient and at the bedside. Patient was recently admitted to for CHF
exacerbation and was discharged the AM of 06/29/23. He was feeling fairly well at the time of discharge. This evening at home, patient began to feel 'weird' which he describes as anxious and 'uptight'. He began to feel more SOB and returned to the
ED for further evaluation.
Initial SpO2 in the ED was 85% on room air.
During his recent admission, patient underwent R thoracentesis for removal of 950cc of fluid felt to be secondary to CHF.
One week prior to that he was admitted for suspected pneumonia, though he also received IV diuresis during that admission.
Patient underwent cardiac cath and stent (RCA) in May. He was noted at that time to have severe aortic stenosis and is currently being evaluated for possible TAVR.
notes that he has been hospitalized monthly since 02/2023.
Medical History
Past Medical History
Past Medical History: Reports Other
Additional Past Medical History:
Chronic non-NC troponin elevation
CAD
Anemia
Moderate to severe aortic stenosis
Microcytic anemia
Hyponatremia
Groin pain
Chronic HFrEF
Left carotid artery stenosis status post stent placement
Chronic kidney disease stage III
Asthma
Hypertension
Obstructive sleep apnea
Hyperlipidemia
Diabetes mellitus
Gout
Past Surgical History: Reports Other
Additional Past Surgical History:
Left carotid artery stenosis status post stent placement
PTCA with Stent
Social History
Tobacco: Non-smoker
Alcohol: None
Personal: (54 YEARS )
Living: With Family
Family History
Family History: Not pertinent
Allergies / Home Medications
Allergies reflects when Allergies were last updated in [facility].
Home Medications with original date entered in [facility]
Allergy/Medication List:
Allergies
Allergy/AdvReac Type Severity Reaction Status Date / Time
albuterol Allergy Unknown Verified 06/29/23 23:51
amlodipine besylate Allergy Edema Verified 06/29/23 23:51
[From Norvasc]
benazepril HCl Allergy Bradycardia Verified 06/29/23 23:51
[From Lotensin]
clonidine HCl [From Catapres] Allergy SEVERE Verified 06/29/23 23:51
FATIGUE
doxazosin Allergy Shortness Verified 06/29/23 23:51
of breath,
swollen
hands
doxycycline Allergy Upset Verified 06/29/23 23:51
Stomach
hydrochlorothiazide Allergy Renal Verified 06/29/23 23:51
Insufficiency
lisinopril Allergy Tongue Verified 06/29/23 23:51
Swelling
metoprolol tartrate Allergy SEVERE Verified 06/29/23 23:51
[From Lopressor] Fatigue
niacin Allergy Rash Verified 06/29/23 23:51
semaglutide [From Ozempic] Allergy Gall Verified 06/29/23 23:51
Bladder
dx/stones,
cholecystitis
spironolactone Allergy Gynocosmast Verified 06/29/23 23:51
[From Aldactone] ia
Rxnetho-BII-OnS Reductase Allergy Myalgias Verified 06/29/23 23:51
Inhibitor
[Wztwwuk-Lta-Sql Reductase
Inhibitor]
Home Medications
glyburide 5 mg tablet 10 mg PO BID Diabetes 06/01/13
aspirin 81 mg tablet,delayed release 81 mg PO DAILY Blood clot prevention/tx 06/22/22
colchicine 0.6 mg tablet 0.3 mg PO DAILY Gout 06/13/23
evolocumab 140 mg/mL subcutaneous syringe (Repatha Syringe) 140 mg SC Q2W High Cholesterol 06/13/23
furosemide 20 mg tablet (Lasix) 60 mg PO BID@0500,1700 Fluid Retention/Swelling 06/13/23
insulin detemir U-100 100 unit/mL (3 mL) subcutaneous pen (Levemir FlexPen) 14 unit SC QPM Diabetes 06/13/23
pantoprazole 40 mg tablet,delayed release (Protonix) 40 mg PO DAILY Gastrointestinal Issue 06/13/23
tramadol 50 mg tablet 50 mg PO HSPRN PRN SEVERE pain 06/13/23
carvedilol 6.25 mg tablet (Coreg) 6.25 mg PO BID Blood Pressure 06/17/23
clopidogrel 75 mg tablet (Plavix) 75 mg PO DAILY Blood Clot Prevention/Tx 06/17/23
rosuvastatin 5 mg tablet (Crestor) 5 mg PO MOWEFR@0800 cholesterol 06/17/23
acetaminophen 650 mg tablet,extended release 1,300 mg PO QPM Pain 06/25/23
albuterol sulfate 2.5 mg/3 mL (0.083 %) solution for nebulization 2.5 mg inhalation .SEE BELOW PRN sob 06/25/23
cranberry fruit 450 mg tablet (cranberry) 900 mg PO DAILY Supplement 06/25/23
ferrous sulfate 325 mg (65 mg iron) tablet 325 mg PO Q48H@0800 Supplement 06/25/23
polyethylene glycol 3350 17 gram oral powder packet (Miralax) 17 g PO DAILY PRN constipation 06/25/23
Review of Systems
-
History Source: Patient and Family
A 12 point ROS was completed and negative except as noted: Yes
Constitutional: Reports Fatigue; Denies Fever or Chills
EENT: Denies Sore Throat
Respiratory: Reports Trouble Breathing; Denies Cough or Hemoptysis
Cardiac: Denies Chest Pain, Diaphoresis or Palpitations
Abdomen/GI: Denies Abdominal Pain, Nausea, Vomiting or Diarrhea
: Denies Dysuria, Frequency or Flank Pain
Neurological: Denies Dizzy, Headache, Weakness or Numbness
Psych: Reports Anxiety; Denies Depression
Physical Exam
Vital Signs
Vital Signs
Temp Pulse Resp BP Pulse Ox
97.8 F 62 14 130/70 99
06/29/23 23:48 06/30/23 03:39 06/30/23 03:39 06/30/23 03:39 06/30/23 03:39
Physical Exam
General: Other (83y M in no acute distress at present.)
HEENT: Moist mucous membranes and PERRLA
Respiratory: Other (Few bibasilar rales. No wheezing or rhonchi.)
Cardiac: S1/S2, Regular Rhythm and Murmur (III/ MARLON)
GI: Soft, Non Tender, Non Distended and Normal Bowel Sounds
Musculoskeletal: No Clubbing, No Cyanosis and No Edema
Neuro: AO x 3
Laboratory Results
-
06/30/23 02:38
06/30/23 02:38
Laboratory Results
Total Bilirubin 0.5 mg/dl (0.2-1.3) 06/30/23 02:38
AST 18 U/L (17-59) 06/30/23 02:38
ALT 11 U/L (0-50) 06/30/23 02:38
Alkaline Phosphatase 65 U/L (38-126) 06/30/23 02:38
Troponin I 0.046 ng/ml H* 06/30/23 02:38
Impression/Plan
-
A/P: Patient is an 83y M with PMH significant for ASCVD, CHFrEF and severe who presents to ED complaining of anxiety and SOB.
Dyspnea
Anxiety
- Admit for further evaluation and treatment.
- Suspect that dyspnea is multifactorial due to severe , CHF, anxiety and anemia.
- Treat individual issues as noted below.
- Follow for clinical improvement / stability.
Subacute HFrEF
Severe Aortic Stenosis
Acute Hypoxemic Respiratory Insufficiency secondary to the above
- Weight is not increased, no edema on exam, BNP slightly increased from prior.
- Will change Lasix back to 40mg IV BID for now.
- Follow I/Os, daily weights and monitor for improvement in dyspnea / hypoxemia.
- Cardio to re-evaluate.
- In process of being evaluated for TAVR which hopefully will help his recurrent symptoms.
Anxiety / Depression
- Patient has issues with anxiety / palpitations on prior visit - felt to be triggered by albuterol.
- Now with similar 'uptight' / anxious feeling.
- Possibly secondary to hypoxemia. Also possible that anxiety itself is contributing to dyspnea.
- Follow for any new / recurrent symptoms.
- Consider trial of anxiolytic medication if symptoms persist / recur despite diuresis.
ASCVD
- History of CAD, carotid disease and prior CVA.
- No chest pain at present.
- Last cath was 05/2022 and had RCA stent placed at that time.
- Circumflex with 70-80% stenosis was also noted during that procedure.
- Continue current CV med regimen including DAPT, statin, etc.
- Troponin continues to trend down from prior - continue to follow.
Right Pleural Effusion
- s/p thoracentesis 06/27 for 950cc of fluid.
- Small effusion persists on CXR this evening.
- Follow for changes, diurese as noted above. Consider repeat thora if significant fluid re-accumulation.
CKD III
- Stable. Renal function remains at baseline.
- Follow for any changes with continued diuresis.
DM-II
- Stable. A1C during recent visit was 9%.
- Hold glyburide.
- Continue basal : bolus insulin.
- Adjust as needed for adequate control.
Cholelithiasis
- No current abdominal pain, nausea, abnormal LFTs, etc.
- Follow for any new symptoms.
NIECY on BiPAP
- Stable. Continue PAP therapy during stay.
Gout
- Continue colchicine.
DVT Prophylaxis: Subcut Heparin
Code Status: DNR
[2023-06-30 04:38] LABS: Glucose - Point of Care 81 mg/dl (70-99)
--- NOTE | 2023-06-30 04:43 | EDRN ---
Pt's came out of room and said pt's dexcom was reading in the low 60's but it is not always accurate. Accucheck obtained by this RN = 81. looked at dexcom reading and it was in the 50's. Pt offered no new complaints, given orange juice
to drink.
[2023-06-30 06:14] LABS: TSH Reflex To Free T4 3.25 uIU/ml (0.47-4.68)
[2023-06-30 06:22] LABS: Hematocrit 33.6 % (39.0-52.0); Hemoglobin 10.1 g/dL (13.0-18.0); Mean Corp Hgb Conc. 30.1 g/dL (33.0-37.0); Mean Corpuscular Hgb 22.9 pg (27.0-31.0); Mean Platelet Volume 10.2 fL (7.4-10.4); Platelet Count 295 10^3/uL (130-400); Red Blood Cell Count 4.42 10^6/uL (4.70-6.10); Red Cell Dist. Width 23.3 % (11.5-14.5); White Blood Cell Count 7.1 10^3/uL (4.8-10.8)
[2023-06-30 06:23] LABS: Blood Urea Nitrogen 46 mg/dl (9-20); Calcium 9.5 mg/dl (8.4-10.2); Carbon Dioxide 26 mmol/L (22-30); Chloride 102 mmol/L (98-107); Estimated Creatinine Clearance 32 ml/min; Glucose 88 mg/dl (70-99); Potassium 3.9 mmol/L (3.5-5.1); Sodium 138 mmol/L (135-145); eGFR 37.12
[2023-06-30] MEDS: CRESTOR 5 MG PO (07:55)
[2023-06-30] MEDS: PLAVIX 75 MG PO (07:56)
[2023-06-30] MEDS: FEOSOL 325 MG PO (07:56)
[2023-06-30] MEDS: COLCHICINE 0.299999999999999989 MG PO (07:56)
[2023-06-30] MEDS: ASPIR LOW (ENTERIC COATED) 81 MG PO (07:56)
[2023-06-30] MEDS: COREG 6.25 MG PO ×2 (07:56→22:04)
[2023-06-30] MEDS: PROTONIX 40 MG PO (07:57)
[2023-06-30] MEDS: LASIX 40 MG IV ×2 (07:57→16:28)
[2023-06-30] MEDS: HEPARIN 5000 UNITS SC ×2 (07:57→22:08)
[2023-06-30 08:54] LABS: Glucose - Point of Care 80 mg/dl (70-99)
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
--- NOTE | 2023-06-30 09:47 | W.PN.HOSP.TC ---
Today's Communication/Plan
-
see bold
Assessment / Plan
Assessment / Plan
HPI: Patient is an 83y M with PMH significant for ASCVD, CHFrEF and severe who presents to ED complaining of anxiety and SOB.
Dyspnea
Anxiety
�- Suspect that dyspnea is multifactorial due to severe , CHF, anxiety and anemia. Treat individual issues as noted below.
- Wearing oxygen for comfort, he is not hypoxic
Subacute HFrEF
Severe Aortic Stenosis
�- Weight is not increased, no edema on exam, BNP slightly increased from prior.
�- Continue Lasix back to 40mg IV BID for now.
�- Cardiology following, repeat echo today
�- In process of being evaluated for TAVR which hopefully will help his recurrent symptoms.
Anxiety / Depression
�- Patient has issues with anxiety / palpitations on prior visit - felt to be triggered by albuterol.
�- Psychiatry was consulted for possible suicidal ideation
- Trial of Ativan for anxiety, start buspar 7.5 mg bid
ASCVD
�- History of CAD, carotid disease and prior CVA.
�- Last cath was 05/2022 and had RCA stent placed at that time.
�- Continue current CV med regimen including DAPT, statin, etc.
�
Chronic urinary retention secondary to neurogenic bladder
- Urology consulted, Leon inserted 06/29
Right Pleural Effusion
�- S/p thoracentesis 06/27 for 950cc of fluid.
CKD III
�- Creatinine stable, continue to monitor
DM-II
�- A1C during recent visit was 9%.
�- Hold glyburide, continue detemir 14 units every afternoon, SSI
Cholelithiasis
�- No current abdominal pain, nausea, abnormal LFTs, etc.
NIECY on BiPAP
�- Continue CPAP therapy during stay.
Gout
�- Continue colchicine.
DVT Prophylaxis:� Subcut Heparin
Code Status:� DNR
Physical Exam
General: No acute distress
HEENT: Normocephalic, Atraumatic, EOMI, MMM
Respiratory: Diminished breath sounds at the bases
Cardiac: Normal S1/S2, Regular Rate and Rhythm, +murmur
GI: Soft, Nontender, Nondistended, Normal Bowel Sounds
Extremities: No Clubbing, Cyanosis, or Edema
Neuro: Nonfocal/Grossly Intact
Psych: Calm, Cooperative
Derm: No Visible lesions
Anticipated Discharge: > 48 hours
Subjective/Interval History
-
Date of Service: June 30, 2023
Patient had urinary retention, requiring straight cath. He reports his breathing is improved. He is on oxygen for comfort.
Objective Data
-
Labs:
Laboratory Results
06/30/23 06/30/23
02:38 06:02
WBC 7.0 7.1
Hgb 10.0 L 10.1 L
Hct 32.6 L 33.6 L
Plt Count 310 295
Sodium 138 138
Potassium 3.9 3.9
Chloride 101 102
Carbon Dioxide 25 26
BUN 46 H 46 H
Creatinine 1.8 H 1.8 H
Glucose 95 88
Calcium 9.7 9.5
Total Bilirubin 0.5
AST 18
ALT 11
Alkaline Phosphatase 65
Vital Signs:
Vital Signs
Temp Pulse Resp BP Pulse Ox
97.8 F 70 16 125/74 96
06/29/23 23:48 06/30/23 07:30 06/30/23 05:05 06/30/23 07:30 06/30/23 07:31
--- NOTE | 2023-06-30 09:51 | PTCARENOTE ---
Pt received in stretcher @ 0700. AAOx3. Anxious and withdrawn. Admits to suicidal ideation related to recent poor health. States he thinks about 'jumping off the roof. I can't go on like this.' Denying pain. Dr. Wheatley notified. New order for psychiatry
consult. SaO2 97% on 2L NC. Diminished breath sounds. Dyspneic on exertion. Pt stating intermittent dyspnea. 'I just can't get comfortable.' No observable drop in SaO2. 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 Trace LE
edema. Pedal pulses palpable. Abdomen round, distended. Ate 75% of breakfast. States last bowel movement was yesterday. Pt states difficult urological history related to retention. Pt voided 675ml. Bladder scanned for PVR of > 999ml. Dr. Baltazar
notified and Urology consulted.
[2023-06-30] MEDS: NOVOLOG FLEXPEN-LOW RESISTANCE SC ×3 (11:13→17:28)
--- NOTE | 2023-06-30 12:02 | W.PN.URO.CBU ---
Today's Communication / Plan
-
LEAVE PRITCHARD UNTIL DOSCHARGE HAND IRRIGATE ORN
Assessment / Plan
-
placed pritchard with cath cuide min trauma will slowoy let out urine to lessen risk of hematuria due to DAP. 1100 CC IN BLADDER
Diagnosis
-
Date of Service: June 30, 2023
-
Patient Diagnosis:
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
Post Op Day:
Subjective
-
dificulty voiding
Objective
-
Vital Signs
Temp Pulse Resp BP Pulse Ox
97.5 F 61 16 132/78 98
06/30/23 11:30 06/30/23 11:15 06/30/23 05:05 06/30/23 10:59 06/30/23 11:15
Laboratory Results
06/30/23 06:02
06/30/23 06:02
Review of Systems
-
Respiratory: Trouble Breathing
Cardiac: Chest Pain
: Difficulty Voiding
Physical Exam
-
General - well developed, well nourished, no acute distress
Chest - clear bilaterally
Abdomen - soft, non-tender, positive bowel sounds, no CVAT, no incisional pain or distention
Genitalia - normal
Rectal - normal
Skin - warm & dry with no rash
Neuro - AOx3, no motor deficits
Extremities - no clubbing, no cyanosis, no edema
Incision - clean, dry
Dressing - clean, dry, intact
Counseling
-
LEAVE PRITCHARD
Care Review
Data Reviewed
Discussed with: Hospitalist, Nursing and Family
[2023-06-30 12:56] LABS: Glucose - Point of Care 80 mg/dl (70-99)
--- NOTE | 2023-06-30 13:40 | PTCARENOTE ---
Carolyn played by Dr. Saravia. 1100ml output. Intermittently clamped per Manjit to prevent bleeding with large output. Pt seen by Psych; 1:1 D/C'd.
--- NOTE | 2023-06-30 13:50 | CS.PSYCHR ---
Consult Summary - Psychiatry
-
Pt is 83 yo male with PMH significant for ASCVD, chronic HFrEF and severe aortic stenosis who presented to ED, after just being discharged, complaining of SOB and anxiety.� Pt c/o feeling uptight, unable to get comfortable, SOB. History obtained
from patient and who was present. Pt was recently admitted to �06/17 for CHF exacerbation and was discharged the AM of 06/29/23.�Pt had undergone cardiac cath with RCA stenting on 06/13/23. Pt noted to have severe aortic stenosis, being
evaluated for TAVR. Pt had thoracentesis and removal of fluid due to CHF during previous stay. Psychiatry asked to evaluate due to pt reportedly expressing suicidal ideation. Pt noted talking about not being able to ho like this, thoughts of
jumping off the roof. On interview, pt denies actual suicidal intent. reports he has had a succession of hospitalizations and medical complications since February. Pt talked about the stress of being hospitalized, having disruptive
roommates, difficulty sleeping, feeling frustrated with limited ability for hospitals to fix his medical problems.
Psych Hx: denied
SH: , supportive. 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
MSE: alert, oriented, calm, cooperative. Affect appropriate, mildly irritable/ dysphoric. Pt denies active SI/plan/intent. No signs of psychosis, speech/thougtht coherent/goal-directed. Insight fair
Imp: Adjustment d/o, situational dysphoria due to recent medical problems and repeated hospital stays
Rec: supportive approach. No psych medication indicated at this point. Pt does not appear to need 1:1 supervision
Will follow
--- NOTE | 2023-06-30 14:20 | PTCARENOTE ---
Pt received from ED with at bedside, VSS, pritchard draining clear yellow, NSR with 1st degree block on telemetry.
[2023-06-30 14:39] LABS: Troponin I 0.046 ng/ml
[2023-06-30] MEDS: ATIVAN 0.5 MG PO (16:28)
[2023-06-30 17:12] LABS: Glucose - Point of Care 106 mg/dl (70-99)
[2023-06-30] MEDS: LEVEMIR 0.140000000000000013 UNITS SC (17:32)
[2023-06-30 20:37] LABS: Troponin I 0.044 ng/ml
[2023-06-30 22:21] LABS: Glucose - Point of Care 168 mg/dl (70-99)
[2023-07-01] VITALS (7 sets, daily range): BP systolic 103–131; BP diastolic 51–80; PULSE 67–97; BMI 27.6
[2023-07-01 06:25] LABS: Blood Urea Nitrogen 40 mg/dl (9-20); Calcium 9.2 mg/dl (8.4-10.2); Carbon Dioxide 26 mmol/L (22-30); Chloride 105 mmol/L (98-107); Estimated Creatinine Clearance 30 ml/min; Glucose 66 mg/dl (70-99); Sodium 138 mmol/L (135-145); eGFR 34.79
[2023-07-01 07:20] LABS: Glucose - Point of Care 98 mg/dl (70-99)
[2023-07-01] MEDS: NOVOLOG FLEXPEN-LOW RESISTANCE SC ×2 (07:52→17:51)
--- NOTE | 2023-07-01 07:54 | W.PN.HOSP.TC ---
Today's Communication/Plan
-
see bold
Assessment / Plan
Assessment / Plan
HPI: Patient is an 83y M with PMH significant for ASCVD, CHFrEF and severe who presents to ED complaining of anxiety and SOB.
Dyspnea
Anxiety
�- Suspect that dyspnea is multifactorial due to severe , CHF, anxiety and anemia. Treat individual issues as noted below.
- Wearing oxygen for comfort, he is not hypoxic
Subacute HFrEF
Severe Aortic Stenosis
�- Weight is not increased, no edema on exam, BNP slightly increased from prior.
�- Continue Lasix back to 40mg IV BID
�- Cardiology following, repeat echo today
�- In process of being evaluated for TAVR which hopefully will help his recurrent symptoms.
Anxiety / Depression
�- Patient has issues with anxiety / palpitations on prior visit - felt to be triggered by albuterol.
�- Psychiatry was consulted for possible suicidal ideation
- Trial of Ativan for anxiety, start buspar 7.5 mg bid, start lexapro 5 mg daily
ASCVD
�- History of CAD, carotid disease and prior CVA.
�- Last cath was 05/2022 and had RCA stent placed at that time.
�- Continue current CV med regimen including DAPT, statin, etc.
�
Chronic urinary retention secondary to neurogenic bladder
- Urology consulted, Leon inserted 06/29
Right Pleural Effusion
�- S/p thoracentesis 06/27 for 950cc of fluid.
CKD III
�- Creatinine stable, continue to monitor
DM-II
�- A1C during recent visit was 9%.
�- Hold glyburide, decrease detemir to 12 units due to hypoglycemia, SSI
Cholelithiasis
�- No current abdominal pain, nausea, abnormal LFTs, etc.
NIECY on BiPAP
�- Continue CPAP therapy during stay.
Gout
�- Continue colchicine.
DVT Prophylaxis:� Subcut Heparin
Code Status:� DNR
Updated at bedside
Total time spent to see the patient on the floor, examine the patient, review data and lab results, discuss treatment plan with patient, nursing staff around 51 minutes.
Physical Exam
General: No acute distress
HEENT: Normocephalic, Atraumatic, EOMI, MMM
Respiratory: Diminished breath sounds at the bases
Cardiac: Normal S1/S2, Regular Rate and Rhythm, +murmur
GI: Soft, Nontender, Nondistended, Normal Bowel Sounds
Extremities: No Clubbing, Cyanosis, or Edema
Neuro: Nonfocal/Grossly Intact
Psych: Anxious appearing
Anticipated Discharge: > 48 hours
Subjective/Interval History
-
Date of Service: July 01, 2023
Objective Data
-
Labs:
Laboratory Results
07/01/23
05:02
Sodium 138
Potassium 4.0
Chloride 105
Carbon Dioxide 26
BUN 40 H
Creatinine 1.9 H
Glucose 66 L
Calcium 9.2
Vital Signs:
Vital Signs
Temp Pulse Resp BP Pulse Ox
98.1 F 69 18 116/68 100
07/01/23 07:10 07/01/23 07:10 07/01/23 07:10 07/01/23 07:10 07/01/23 07:10
I&O
06/30/23 07/01/23 07/02/23
06:59 06:59 06:59
Intake Total 1540 / 1540
Output Total 4200 / 4200
Balance -2660 / -2660
[2023-07-01] MEDS: ASPIR LOW (ENTERIC COATED) 81 MG PO (08:55)
[2023-07-01] MEDS: LASIX 40 MG IV ×2 (08:55→17:47)
[2023-07-01] MEDS: PROTONIX 40 MG PO (08:55)
[2023-07-01] MEDS: HEPARIN 5000 UNITS SC ×2 (08:55→20:00)
[2023-07-01] MEDS: PLAVIX 75 MG PO (08:55)
[2023-07-01] MEDS: COREG 6.25 MG PO ×2 (08:55→20:00)
[2023-07-01] MEDS: COLCHICINE 0.299999999999999989 MG PO (08:56)
--- NOTE | 2023-07-01 10:48 | W.PN.UPDATE ---
Update Note
Progress Note Update
Patient seen at bedside, chart reviewed, discussed with staff. He was resting comfortable when seen this AM. Mood is somewhat improved. Remains somewhat SOB. Still 'stressed' over current medical issues. Sleep and appetite reported as fair. Denies
any SI/SB.
Impression/Plan:� Adjustment disorder, situational r/t medical problems - Continue supportive approach. May benefit from outpatient therapy.
[2023-07-01 11:06] LABS: Glucose - Point of Care 180 mg/dl (70-99)
[2023-07-01] MEDS: LEXAPRO 5 MG PO (12:02)
[2023-07-01] MEDS: NOVOLOG FLEXPEN-LOW RESISTANCE 1 UNITS SC (12:02)
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
[2023-07-01] MEDS: LEVEMIR 0.119999999999999996 UNITS SC (17:52)
[2023-07-01 17:53] LABS: Glucose - Point of Care 135 mg/dl (70-99)
--- NOTE | 2023-07-01 19:14 | PTCARENOTE ---
pt pritchard draining clear yellow urine with few small clots during this shift. irrigation not necessary at this time. pt walked entire unit with multiple times for this nurses shift. see worklist for proper charting. pt aaox3 and got first dose
of lexapro 5mg this afternoon. pt requested ativan HS for night baker. this nurse reported to night baker for administration later this evening.
[2023-07-01] MEDS: ATIVAN 0.5 MG PO (20:06)
[2023-07-01 22:22] LABS: Glucose - Point of Care 193 mg/dl (70-99)
[2023-07-02] VITALS (7 sets, daily range): BP systolic 107–141; BP diastolic 53–80; PULSE 71–78; O2SAT 91; BMI 27.2
--- NOTE | 2023-07-02 | PTCARENOTE ---
Pt feeling anxious. 'Can't describe the feeling'. reports feeling tired of being in the hospital, tired of being sick, and a burden to his . Offered another dose of Ativan. Pt not sure if he wants it at this moment. Reporting difficulty
sleeping.
[2023-07-02] MEDS: ATIVAN 0.5 MG PO ×3 (01:55→23:55)
--- NOTE | 2023-07-02 03:30 | SUR.PHASEI ---
Pt c/o discomfort at catheter site. Upset about having pritchard. Called . called the nurse's station and said he will try and pull it if we don't remove it or medicate him. She said this has happened to him before with foleys. Urojet ordered
by [employer].
--- NOTE | 2023-07-02 03:30 | W.PN.UPDATE ---
Update Note
Progress Note Update
Nurse reports patient with c/o of burning and discomfort at insertion of pritchard. Placed order for uro-jet for comfort.
[2023-07-02] MEDS: LIDOCAINE URO-JET 2% 1 SYRINGE TOPICAL ×2 (04:50→19:00)
[2023-07-02 07:12] LABS: Glucose - Point of Care 124 mg/dl (70-99)
[2023-07-02] MEDS: NOVOLOG FLEXPEN-LOW RESISTANCE SC (07:57)
--- NOTE | 2023-07-02 09:02 | W.PN.HOSP.TC ---
Today's Communication/Plan
-
see bold
Assessment / Plan
Assessment / Plan
HPI: Patient is an 83y M with PMH significant for ASCVD, CHFrEF and severe who presents to ED complaining of anxiety and SOB.
Dyspnea
Anxiety
�- Suspect that dyspnea is multifactorial due to severe , CHF, anxiety and anemia. Treat individual issues as noted below.
- Patient was wearing oxygen for comfort, now breathing comfortably on room air
- PT rec home care vs no needs
Subacute HFrEF
Severe Aortic Stenosis
�- Weight is not increased, no edema on exam, BNP slightly increased from prior.
�- Continue Lasix back to 40mg IV BID for today
�- Cardiology following, repeat echo reviewed
�- In process of being evaluated for TAVR which hopefully will help his recurrent symptoms
- Cards will decide on whether he needs a repeat CTA of the lower extremities to evaluate his vascular access
- Likely will need dental clearance as an outpatient
Anxiety / Depression
�- Patient has issues with anxiety / palpitations on prior visit - felt to be triggered by albuterol.
�- Psychiatry was consulted for possible suicidal ideation, patient is not suicidal
- Trial of Ativan for anxiety, started buspar 7.5 mg bid, started lexapro 5 mg daily
ASCVD
�- History of CAD, carotid disease and prior CVA.
�- Last cath was 05/2022 and had RCA stent placed at that time.
�- Continue current CV med regimen including DAPT, statin, etc.
�
Chronic urinary retention secondary to neurogenic bladder
- Urology consulted, Leon inserted 06/29
Right Pleural Effusion
�- S/p thoracentesis 06/27 for 950cc of fluid.
CKD III
�- Creatinine stable at 1.9, continue to monitor
DM-II
�- A1C during recent visit was 9%.
�- Hold glyburide, decreased detemir to 12 units due to hypoglycemia, SSI
Cholelithiasis
�- No current abdominal pain, nausea, abnormal LFTs, etc.
NIECY on BiPAP
�- Continue CPAP therapy during stay.
Gout
�- Continue colchicine.
DVT Prophylaxis:� Subcut Heparin
Code Status:� DNR
Updated at bedside 07/01
Physical Exam
General: No acute distress
HEENT: Normocephalic, Atraumatic, EOMI, MMM
Respiratory: Diminished breath sounds at the bases
Cardiac: Normal S1/S2, Regular Rate and Rhythm, +murmur
GI: Soft, Nontender, Nondistended, Normal Bowel Sounds
Extremities: No Clubbing, Cyanosis, or Edema
Neuro: Nonfocal/Grossly Intact
Psych: Anxious appearing
Anticipated Discharge: 24 - 48 hours
Subjective/Interval History
-
Date of Service: July 02, 2023
Nursing staff reports patient had a panic attack overnight. Currently he is calm. His breathing has improved, he is on room air.
Objective Data
-
Vital Signs:
Vital Signs
Temp Pulse Resp BP Pulse Ox
97.6 F 66 16 118/57 97
07/02/23 07:05 07/02/23 07:05 07/02/23 07:05 07/02/23 07:05 07/02/23 07:05
I&O
07/01/23 07/02/23 07/03/23
06:59 06:59 06:59
Intake Total 1540 / 1540 1360 / 1360
Output Total 4200 / 4200 1225 / 1225
Balance -2660 / -2660 135 / 135
[2023-07-02] MEDS: COLCHICINE 0.299999999999999989 MG PO (09:52)
[2023-07-02] MEDS: PROTONIX 40 MG PO (09:52)
[2023-07-02] MEDS: LEXAPRO 5 MG PO (09:52)
[2023-07-02] MEDS: CRESTOR 5 MG PO (09:52)
[2023-07-02] MEDS: COREG 6.25 MG PO ×2 (09:53→20:42)
[2023-07-02] MEDS: ASPIR LOW (ENTERIC COATED) 81 MG PO (09:53)
[2023-07-02] MEDS: PLAVIX 75 MG PO (09:53)
[2023-07-02] MEDS: FEOSOL 325 MG PO (09:54)
[2023-07-02] MEDS: HEPARIN 5000 UNITS SC ×2 (09:54→20:43)
[2023-07-02] MEDS: LASIX 40 MG IV ×2 (09:55→17:00)
[2023-07-02] MEDS: TYLENOL 650 MG PO (10:01)
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
[2023-07-02 12:11] LABS: Glucose - Point of Care 176 mg/dl (70-99)
--- NOTE | 2023-07-02 12:29 | W.CON.NEPH ---
Consultation
-
Date/Time Consultation Requested: 07/02/23 9:34AM
Date/Time Consultation Performed: 07/02/23 12:32PM
Requesting Provider: Monserrat Lowry
Performing Provider: Tania Long
Reason for Consultation: CKD 3
Medical History
-
Chief Complaint: CKD Stage 3
History of Present Illness:
Mr. Sebastian Bui is an 83 YOM with PMH of HFmrEF (40%), severe , chronic anemia, CAD, DLD, HTN, NIECY on CPAP, CKD Stage , h/o TIA, T2DM who presents to the hospital on 06/29 for SOB and anxiety. He has had multiple admissions for CHF exacerbation over
the past few months. He did undergo a cardiac cath and stent placement in May and was noted to have severe and is being evaluated for possible TAVR while inpatient. Nephrology is consulted for CKD. He has never seen a neprhologist. Reviewing
his Cr trends, he has ranged from 1.6-1.9 for the past year with GFR correlating with CKD Stage 3B. UA notable for WBCs, RBCs but only trace albumin.
Past Medical History
1. Chronic non MT troponin elevation.
2. CAD.
3. Anemia.
4. Moderate to severe aortic stenosis.
5. Microcytic anemia.
6. Hyponatremia.
7. Groin pain.
8. Chronic HFrEF.
9. Left carotid artery stenosis despite stent placement.
10. Chronic kidney disease, stage 3.
11. Asthma.
12. Hypertension.
13. Obstructive apnea.
14. Urinary retention.
15. Diabetes.
16. Gout.
17. Hyperlipidemia.
�
Past Medical History: Other
Past Surgical History: None
Social History
Tobacco: Non-Smoker
Alcohol: None
Drug: None
Personal:
Living: With Family
Family History
Family History: Not Pertinent
Allergies / Home Medications
Allergy/AdvReac Type Severity Reaction Status Date / Time
albuterol Allergy Unknown Verified 06/29/23 23:51
amlodipine besylate Allergy Edema Verified 06/29/23 23:51
[From Norvasc]
benazepril HCl Allergy Bradycardia Verified 06/29/23 23:51
[From Lotensin]
clonidine HCl [From Catapres] Allergy SEVERE Verified 06/29/23 23:51
FATIGUE
doxazosin Allergy Shortness Verified 06/29/23 23:51
of breath,
swollen
hands
doxycycline Allergy Upset Verified 06/29/23 23:51
Stomach
hydrochlorothiazide Allergy Renal Verified 06/29/23 23:51
Insufficiency
lisinopril Allergy Tongue Verified 06/29/23 23:51
Swelling
metoprolol tartrate Allergy SEVERE Verified 06/29/23 23:51
[From Lopressor] Fatigue
niacin Allergy Rash Verified 06/29/23 23:51
semaglutide [From Ozempic] Allergy Gall Verified 06/29/23 23:51
Bladder
dx/stones,
cholecystitis
spironolactone Allergy Gynocosmast Verified 06/29/23 23:51
[From Aldactone] ia
Neljeyj-HFG-SpL Reductase Allergy Myalgias Verified 06/29/23 23:51
Inhibitor
[Rnexoqh-Pfg-Sic Reductase
Inhibitor]
Medication Instructions Recorded Confirmed Type
glyburide 5 mg tablet 10 mg PO BID Diabetes 06/01/13 06/30/23 History
aspirin 81 mg tablet,delayed 81 mg PO DAILY Blood clot 06/22/22 06/30/23 History
release prevention/tx
colchicine 0.6 mg tablet 0.3 mg PO DAILY Gout 06/13/23 06/30/23 History
evolocumab 140 mg/mL subcutaneous 140 mg SC Q2W High Cholesterol 06/13/23 06/30/23 History
syringe (Repatha Syringe)
furosemide 20 mg tablet (Lasix) 60 mg PO BID Fluid 06/13/23 06/30/23 History
Retention/Swelling
insulin detemir U-100 100 unit/mL 14 unit SC QPM Diabetes 06/13/23 06/30/23 History
(3 mL) subcutaneous pen (Levemir
FlexPen)
pantoprazole 40 mg tablet,delayed 40 mg PO DAILY Gastrointestinal 06/13/23 06/30/23 History
release (Protonix) Issue
tramadol 50 mg tablet 50 mg PO HSPRN PRN SEVERE pain 06/13/23 06/30/23 History
carvedilol 6.25 mg tablet (Coreg) 6.25 mg PO BID Blood Pressure 06/17/23 06/30/23 History
clopidogrel 75 mg tablet (Plavix) 75 mg PO DAILY Blood Clot 06/17/23 06/30/23 History
Prevention/Tx
rosuvastatin 5 mg tablet (Crestor) 5 mg PO MOWEFR@0800 cholesterol 06/17/23 06/30/23 History
acetaminophen 650 mg 1,300 mg PO Q8HPRN PRN mild pain 06/25/23 06/30/23 History
tablet,extended release
albuterol sulfate 2.5 mg/3 mL 2.5 mg inhalation R Q6HPRN PRN sob 06/25/23 06/30/23 History
(0.083 %) solution for nebulization
cranberry fruit 450 mg tablet 900 mg PO DAILY Supplement 06/25/23 06/30/23 History
(cranberry)
ferrous sulfate 325 mg (65 mg 325 mg PO Q48H@0800 Supplement 06/25/23 06/30/23 History
iron) tablet
polyethylene glycol 3350 17 gram 17 g PO DAILYPRN PRN constipation 06/25/23 06/30/23 History
oral powder packet (Miralax)
Review of Systems
-
History Source: Patient
All other systems: Negative unless noted
Respiratory: Trouble Breathing
Physical Exam
Vital Signs
Vital Signs
Temp Pulse Resp BP Pulse Ox
97.4 F 54 18 113/53 95
07/02/23 11:15 07/02/23 11:15 07/02/23 11:15 07/02/23 11:15 07/02/23 11:15
Lab Results
WBC 7.1 10^3/uL (4.8-10.8) 06/30/23 06:02
RBC 4.42 10^6/uL (4.70-6.10) L 06/30/23 06:02
Hgb 10.1 g/dL (13.0-18.0) L 06/30/23 06:02
Hct 33.6 % (39.0-52.0) L 06/30/23 06:02
Plt Count 295 10^3/uL (130-400) 06/30/23 06:02
Sodium 138 mmol/L (135-145) 07/01/23 05:02
Potassium 4.0 mmol/L (3.5-5.1) 07/01/23 05:02
Chloride 105 mmol/L (98-107) 07/01/23 05:02
Carbon Dioxide 26 mmol/L (22-30) 07/01/23 05:02
BUN 40 mg/dl (9-20) H 07/01/23 05:02
Creatinine 1.9 mg/dL (0.7-1.3) H 07/01/23 05:02
eGFR 34.79 07/01/23 05:02
Glucose 66 mg/dl (70-99) L 07/01/23 05:02
Calcium 9.2 mg/dl (8.4-10.2) 07/01/23 05:02
Ulz-E-Rflwfqycorc Pept 7070 pg/ml 06/30/23 02:38
Albumin 3.9 g/dl (3.5-5.0) 06/30/23 02:38
Physical Exam
General: AOx3
HEENT: PERRL, EOMI, Anicteric, Conjunctivae Clear, Ear/Nose Intact and Hearing Normal
Respiratory: Crackels
Cardiac: S1/S2
Breast: N/A
Abdomen: Soft, Nontender and Nondistended
Rectal: Deferred by Provider
Genito-urinary: Other (Leon in place)
Musculoskeletal: No Edema
Skin: No Rash, Warm and Dry
Neuro: Nonfocal/Grossly Intact
Psych: Mood/afflect pleasant, Insight/judgement good and Appropriate
Assessment/Plan
-
Assessment:
SOB
Acute on chronic HFmREF
Severe undergoing TAVR workup
chronic anemia
NIECY on CPAP
HTN
CKD 3
Diabetes
carotid aneurysm surgery
TIA
CAD s/p stenting (06/2022)
DLD
BPH
Plan:
- nephrology consulted in the setting of longstanding CKD
- cause of CKD thought to be cardiorenal + multiple AKIs through the years + some component of obstructive uropathy (saw urology at [place] for BPH)
- patient is being followed by a hairpiece stylist at [place]
- Cr baseline around 1.6-1.9 atleast for the past year
- excellent UOP with lasix 40mg IV BID
- if patient is going to be administered contrast, please consider NS 80cc/hr for 6 hours after IV contrast
- we will follow BMPs
Data Reviewed
-
Radiology: Image Personally Visualized and interpreted (CXR with R pleural effusion)
Labs: Labs Reviewed by me, Discussed with Physician and Discussed with Patient
Old Records: Reviewed
[2023-07-02] MEDS: NOVOLOG FLEXPEN-LOW RESISTANCE 1 UNITS SC ×2 (12:46→18:01)
--- NOTE | 2023-07-02 14:36 | W.PN.UPDATE ---
Update Note
Progress Note Update
Patient resting comfortably OOB in the chair. Pleasant and offering no complaints at this moment. Denies chest pain, SOB, NORMAN, palpitations, PND. No peripheral edema noted. Patient states he has walked the hallway today without any shortness of
breath. His main complaint is at around 2pm he becomes 'paranoid, looses his mind and just wants to get out of here'. He denies any shortness of breath, chest pain or palpitations when he is feeling this way. He states it will last until breakfast.
He says he has not been sleeping well but he has been started on some new medicine. Explained that we are working with the heart team to coordinate a date for his TAVR procedure but his echocardiogram and aortic stenosis has remained stable since
March. Discussed his kidney function and concern of injury if we give contrast too close together. Discussed need for dental clearance to insure no infection prior to valve placement. Also explained that having the TAVR procedure will not
eliminate the other medical issues he is experiencing. Allowed for and answered questions. Updated Dr. Khan. Will discuss with team at Heart Team meeting tomorrow.
--- NOTE | 2023-07-02 16:20 | CM ---
TAVR workup. Therapy recommendation is home PT vs no needs. This CM requested a walk test to determine if patient will require O2 at home. Discharge Plan of Care: STEPHANIE
--- NOTE | 2023-07-02 17:08 | W.PN.URO.CBU ---
Today's Communication / Plan
-
LEAVE PRITCHARD
Assessment / Plan
-
placed pritchard with cath cuide min trauma will slowoy let out urine to lessen risk of hematuria due to DAP. 1100 CC IN BLADDER KEEP PRITCHARD PT NOT INTERESTED AND POSSIBLY INCAPABE OF CIC
Diagnosis
-
Date of Service: July 02, 2023
-
Patient Diagnosis:
Post Op Day:
Patient Diagnosis:
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
Post Op Day:
Subjective
-
does not like pritchard but preferental vs cic
Objective
-
Vital Signs
Temp Pulse Resp BP Pulse Ox
98.3 F 70 18 107/63 98
07/02/23 15:05 07/02/23 15:05 07/02/23 15:05 07/02/23 15:05 07/02/23 15:05
Intake and Output
07/01/23 07/02/23 07/03/23
06:59 06:59 06:59
Intake Total 1540 / 1540 1360 / 1360
Output Total 4200 / 4200 1225 / 1225
Balance -2660 / -2660 135 / 135
Intake:
Oral fluids 1540 / 1540 1360 / 1360
Output:
Urine, Pritchard 4200 / 4200 1225 / 1225
Laboratory Results
06/30/23 06:02
07/01/23 05:02
Review of Systems
-
: Difficulty Voiding
Physical Exam
-
General - well developed, well nourished, no acute distress
Chest - clear bilaterally
Abdomen - soft, non-tender, positive bowel sounds, no CVAT, no incisional pain or distention
Genitalia - normal
Rectal - normal
Skin - warm & dry with no rash
Neuro - AOx3, no motor deficits
Extremities - no clubbing, no cyanosis, no edema
Incision - clean, dry
Dressing - clean, dry, intact
Counseling
-
ASHLY BAHENA
Care Review
Data Reviewed
Discussed with: Nursing
[2023-07-02 17:10] LABS: Glucose - Point of Care 152 mg/dl (70-99)
[2023-07-02] MEDS: LEVEMIR 0.119999999999999996 UNITS SC (18:06)
[2023-07-02 21:03] LABS: Glucose - Point of Care 344 mg/dl (70-99)
--- NOTE | 2023-07-02 21:51 | PTCARENOTE ---
Nurse did 1900 vitals.
[2023-07-03] VITALS (8 sets, daily range): BP systolic 109–138; BP diastolic 49–82; PULSE 79; O2SAT 97; BMI 27.1
[2023-07-03 01:58] LABS: Glucose - Point of Care 137 mg/dl (70-99)
[2023-07-03 05:28] LABS: Blood Urea Nitrogen 35 mg/dl (9-20); Calcium 9.4 mg/dl (8.4-10.2); Carbon Dioxide 25 mmol/L (22-30); Chloride 106 mmol/L (98-107); Estimated Creatinine Clearance 32 ml/min; Glucose 99 mg/dl (70-99); Potassium 4.1 mmol/L (3.5-5.1); Sodium 137 mmol/L (135-145); eGFR 37.12
[2023-07-03 07:40] LABS: Glucose - Point of Care 132 mg/dl (70-99)
[2023-07-03] MEDS: NOVOLOG FLEXPEN-LOW RESISTANCE SC (08:10)
--- NOTE | 2023-07-03 08:38 | W.PN.HOSP.TC ---
Today's Communication/Plan
-
see bold
Assessment / Plan
Assessment / Plan
HPI: Patient is an 83y M with PMH significant for ASCVD, CHFrEF and severe who presents to ED complaining of anxiety and SOB.
Dyspnea
Anxiety
�- Suspect that dyspnea is multifactorial due to severe , CHF, anxiety and anemia. Treat individual issues as noted below.
- Patient was wearing oxygen for comfort, now breathing comfortably on room air
- PT rec home care vs no needs
Subacute HFrEF
Severe Aortic Stenosis
�- Weight is not increased, no edema on exam, BNP slightly increased from prior.
�- S/p Lasix 40 mg IV BID - lasix currently on hold
�- Cardiology following, repeat echo reviewed
�- In process of being evaluated for TAVR which hopefully will help his recurrent symptoms
- Cards will decide on whether he needs a repeat CTA of the lower extremities to evaluate his vascular access
- Likely will need dental clearance as an outpatient
Anxiety / Depression
�- Patient has issues with anxiety / palpitations on prior visit - felt to be triggered by albuterol.
�- Psychiatry was consulted for possible suicidal ideation, patient is not suicidal
- Continue Ativan for anxiety, started lexapro 5 mg daily, psych rec stopped buspar since it takes longer to take effect
ASCVD
�- History of CAD, carotid disease and prior CVA.
�- Last cath was 05/2022 and had RCA stent placed at that time.
�- Continue current CV med regimen including DAPT, statin, etc.
�
Chronic urinary retention secondary to neurogenic bladder
- Urology consulted, Leon inserted 06/29
Right Pleural Effusion
�- S/p thoracentesis 06/27 for 950cc of fluid.
CKD III
�- Creatinine stable at 1.8, continue to monitor
DM-II
�- A1C during recent visit was 9%.
�- Hold glyburide, decreased detemir to 12 units due to hypoglycemia, SSI
Cholelithiasis
�- No current abdominal pain, nausea, abnormal LFTs, etc.
NIECY on BiPAP
�- Continue CPAP therapy during stay.
Gout
�- Continue colchicine.
DVT Prophylaxis:� Subcut Heparin
Code Status:� DNR
Updated at bedside 07/01
Physical Exam
General: No acute distress
HEENT: Normocephalic, Atraumatic, EOMI, MMM
Respiratory: Diminished breath sounds at the bases
Cardiac: Normal S1/S2, Regular Rate and Rhythm, +murmur
GI: Soft, Nontender, Nondistended, Normal Bowel Sounds
Extremities: No Clubbing, Cyanosis, or Edema
Neuro: Nonfocal/Grossly Intact
Psych: Anxiety improved
Anticipated Discharge: 24 - 48 hours
Subjective/Interval History
-
Date of Service: July 03, 2023
Shortness of breath resolved. Anxiety improved. No chest pain, no nausea or vomiting. No fever.
Objective Data
-
Labs:
Laboratory Results
07/03/23
04:30
Sodium 137
Potassium 4.1
Chloride 106
Carbon Dioxide 25
BUN 35 H
Creatinine 1.8 H
Glucose 99
Calcium 9.4
Vital Signs:
Vital Signs
Temp Pulse Resp BP Pulse Ox
98.0 F 76 18 134/73 97
07/03/23 07:35 07/03/23 07:35 07/03/23 07:35 07/03/23 07:35 07/03/23 07:35
I&O
07/02/23 07/03/23 07/04/23
06:59 06:59 06:59
Intake Total 1360 / 1360 1080 / 1080
Output Total 1225 / 1225 1520 / 1520
Balance 135 / 135 -440 / -440
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
[2023-07-03] MEDS: PROTONIX 40 MG PO (09:23)
[2023-07-03] MEDS: PLAVIX 75 MG PO (09:23)
[2023-07-03] MEDS: COREG 6.25 MG PO ×2 (09:23→20:39)
[2023-07-03] MEDS: LEXAPRO 5 MG PO (09:23)
[2023-07-03] MEDS: ASPIR LOW (ENTERIC COATED) 81 MG PO (09:23)
[2023-07-03] MEDS: COLCHICINE 0.299999999999999989 MG PO (09:24)
[2023-07-03] MEDS: HEPARIN 5000 UNITS SC ×2 (09:25→20:39)
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
--- NOTE | 2023-07-03 10:29 | W.PN.NEPH.PH ---
Today's Communication / Plan
-
- follow BMPs
Assessment/Plan
-
Assessment:
SOB
Acute on chronic HFmREF
Severe undergoing TAVR workup
chronic anemia
NIECY on CPAP
HTN
CKD 3
Diabetes
carotid aneurysm surgery
TIA
CAD s/p stenting (06/2022)
DLD
BPH
Plan:
- nephrology consulted in the setting of longstanding CKD
- cause of CKD thought to be cardiorenal + multiple AKIs through the years + some component of obstructive uropathy (saw urology at [place] for BPH)
- patient is being followed by a song writer at [place]
- Cr baseline around 1.6-1.9 atleast for the past year
- excellent UOP with lasix 40mg IV BID
- no longer planning to get contrast --> likely either oral surgery to follow inpatient or be discharged
- we will follow BMPs
-
-
Date of Service: July 03, 2023
CC / HPI / ROS
-
Chief Complaint:
SPB
History of Present Illness:
TAVR workup ongoing
Cr at baseline of 1.6-1.9
Review of Systems:
no LE edema
Labs
-
Labs:
WBC 7.1 10^3/uL (4.8-10.8) 06/30/23 06:02
RBC 4.42 10^6/uL (4.70-6.10) L 06/30/23 06:02
Hgb 10.1 g/dL (13.0-18.0) L 06/30/23 06:02
Hct 33.6 % (39.0-52.0) L 06/30/23 06:02
Plt Count 295 10^3/uL (130-400) 06/30/23 06:02
Sodium 137 mmol/L (135-145) 07/03/23 04:30
Potassium 4.1 mmol/L (3.5-5.1) 07/03/23 04:30
Chloride 106 mmol/L (98-107) 07/03/23 04:30
Carbon Dioxide 25 mmol/L (22-30) 07/03/23 04:30
BUN 35 mg/dl (9-20) H 07/03/23 04:30
Creatinine 1.8 mg/dL (0.7-1.3) H 07/03/23 04:30
eGFR 37.12 07/03/23 04:30
Glucose 99 mg/dl (70-99) 07/03/23 04:30
Calcium 9.4 mg/dl (8.4-10.2) 07/03/23 04:30
Fri-S-Vggrwmoghli Pept 7070 pg/ml 06/30/23 02:38
Albumin 3.9 g/dl (3.5-5.0) 06/30/23 02:38
Physical Exam
-
Vital Signs:
Vital Signs
Temp Pulse Resp BP Pulse Ox
98.0 F 76 18 134/73 97
07/03/23 07:35 07/03/23 09:23 07/03/23 07:35 07/03/23 09:23 07/03/23 07:35
Cardiovascular:: Regular rate and rhythm
Respiratory:: Bilateral: CTA
Lung Excursion:: Normal
Abdomen:: Nontender and Soft
Bowel Sounds:: Normal
Extremity Edema:: None: Bilateral:
Leon Catheter: Yes
--- NOTE | 2023-07-03 11:29 | W.HF.CON ---
Heart Failure
- LV Function
Left ventricular function study result: LV Ejection fraction >40%
Ejection Fraction Percentage: 40-45
- ARNI
Patient already on ARNI: No
Heart Failure ARNI Not Indicated: LV Ejection Fraction >/= 40%
- ACEI/ARB
Patient already on ACEI/ARB: No
Heart Failure ACEI/ARB Not Indicated: LV Ejection Fraction > 40%
- Beta Juanita
Patient already on Evidence Based Beta Juanita: Yes
- Mineralocorticord Receptor Antagonist
Patient already on MRA: No
Heart Failure MRA Not Indicated: LV Ejection Fraction > 40%
- SGLT-2 Inhibitor
Patient already on SGLT-2 Inhibitor: No
Heart Failure SGLT-2 Inhibitor Not Indicated: LV Ejection Fraction >40%
- NYHA CHF Classification
NYHA CHF Classification Level: Class III - Symptoms w/ min exertion, interferes w/ nml daily activity (severe )
- ACC/AHA Stage
ACC/AHA Stage: Stage C: Symptomatic Heart Failure
[2023-07-03 11:48] LABS: Glucose - Point of Care 153 mg/dl (70-99)
[2023-07-03] MEDS: NOVOLOG FLEXPEN-LOW RESISTANCE 1 UNITS SC ×2 (12:38→17:37)
[2023-07-03] MEDS: TYLENOL 650 MG PO (12:41)
--- NOTE | 2023-07-03 16:09 | CM ---
Workup for TAVR. Needs dental consult inpatient vs outpatient. Therapy recommendation remains HH vs no needs. Will continue to follow.
[2023-07-03 17:04] LABS: Glucose - Point of Care 159 mg/dl (70-99)
[2023-07-03] MEDS: LASIX 40 MG IV (17:35)
[2023-07-03] MEDS: ATIVAN 0.5 MG PO ×2 (17:37→22:15)
[2023-07-03] MEDS: LEVEMIR 0.119999999999999996 UNITS SC (17:38)
[2023-07-03 21:46] LABS: Glucose - Point of Care 207 mg/dl (70-99)
[2023-07-04] MEDS: LIDOCAINE URO-JET 2% 1 SYRINGE TOPICAL ×2 (02:09→10:19)
[2023-07-04] MEDS: ATIVAN 0.5 MG PO ×3 (02:13→17:50)
[2023-07-04 03:36] VITALS: BP 139/78
[2023-07-04 05:47] LABS: Hematocrit 33.7 % (39.0-52.0); Hemoglobin 10.1 g/dL (13.0-18.0); Mean Corpuscular Hgb 22.7 pg (27.0-31.0); Mean Corpuscular Volume 75.7 fL (80.0-94.0); Mean Platelet Volume 10.1 fL (7.4-10.4); Platelet Count 300 10^3/uL (130-400); Red Blood Cell Count 4.45 10^6/uL (4.70-6.10); Red Cell Dist. Width 22.5 % (11.5-14.5); White Blood Cell Count 6.7 10^3/uL (4.8-10.8)
[2023-07-04 06:00] VITALS: BMI 27.1
[2023-07-04 06:12] LABS: Blood Urea Nitrogen 40 mg/dl (9-20); Calcium 9.4 mg/dl (8.4-10.2); Carbon Dioxide 23 mmol/L (22-30); Chloride 106 mmol/L (98-107); Estimated Creatinine Clearance 34 ml/min; Glucose 129 mg/dl (70-99); Potassium 4.1 mmol/L (3.5-5.1); Sodium 137 mmol/L (135-145); eGFR 39.75
[2023-07-04 07:23] LABS: Glucose - Point of Care 130 mg/dl (70-99)
[2023-07-04 07:45] VITALS: BP 130/71
[2023-07-04] MEDS: NOVOLOG FLEXPEN-LOW RESISTANCE SC (07:53)
[2023-07-04 08:00] VITALS: BMI 27.1
[2023-07-04] MEDS: ASPIR LOW (ENTERIC COATED) 81 MG PO (08:13)
[2023-07-04] MEDS: CRESTOR 5 MG PO (08:13)
[2023-07-04] MEDS: COREG 6.25 MG PO (08:13)
[2023-07-04] MEDS: LEXAPRO 5 MG PO (08:13)
[2023-07-04] MEDS: COLCHICINE 0.299999999999999989 MG PO (08:14)
[2023-07-04] MEDS: PLAVIX 75 MG PO (08:14)
[2023-07-04] MEDS: HEPARIN 5000 UNITS SC (08:14)
[2023-07-04] MEDS: FEOSOL 325 MG PO (08:14)
[2023-07-04] MEDS: PROTONIX 40 MG PO (08:14)
[2023-07-04] MEDS: LASIX 40 MG IV ×2 (08:15→16:00)
--- NOTE | 2023-07-04 08:34 | W.PN.HOSP.TC ---
Today's Communication/Plan
-
Cleared by cardiology for discharge today
Assessment / Plan
Assessment / Plan
HPI: Patient is an 83y M with PMH significant for ASCVD, CHFrEF and severe who presents to ED complaining of anxiety and SOB.
Dyspnea
Anxiety
�- Suspect that dyspnea is multifactorial due to severe , CHF, anxiety and anemia. Treat individual issues as noted below.
- Patient was wearing oxygen for comfort, now breathing comfortably on room air
- PT rec home care vs no needs
- Cleared by cardiology for discharge, he will have his TAVR next week on 07/09
Subacute HFrEF
Severe Aortic Stenosis
�- Weight is not increased, no edema on exam, BNP slightly increased from prior.
�- S/p Lasix 40 mg IV BID -nephrology recommends discharge on home dose Lasix 60 mg twice daily
�- Cleared by cardiology for discharge, repeat echo reviewed
�- He will have his TAVR next week on 07/09
- Cards will decide on whether he needs a repeat CTA of the lower extremities to evaluate his vascular access
- Likely will need dental clearance as an outpatient
Anxiety / Depression
�- Patient has issues with anxiety / palpitations on prior visit - felt to be triggered by albuterol.
�- Psychiatry was consulted for possible suicidal ideation, patient is not suicidal
- Anxiety improved on Lexapro 5 mg daily, will discharge on increased dose of 10 mg daily as per psychiatry recommendations
ASCVD
�- History of CAD, carotid disease and prior CVA.
�- Last cath was 05/2022 and had RCA stent placed at that time.
�- Continue current CV med regimen including DAPT, statin, etc.
�
Chronic urinary retention secondary to neurogenic bladder
- Urology consulted, Leon inserted 06/29
- Discharge home with Leon, follow-up urology in the office
Right Pleural Effusion
�- S/p thoracentesis 06/27 for 950cc of fluid.
CKD III
�- Creatinine stable at 1.7, continue to monitor
DM-II
�- A1C during recent visit was 9%.
�- Hold glyburide, decreased detemir to 12 units due to hypoglycemia, SSI
- Patient is not adherent to a low-carb diet at home, he can resume his previous regimen upon discharge
Cholelithiasis
�- No current abdominal pain, nausea, abnormal LFTs, etc.
NIECY on BiPAP
�- Continue CPAP therapy during stay.
Gout
�- Continue colchicine.
DVT Prophylaxis:� Subcut Heparin
Code Status:� DNR
Updated at bedside 07/03
Total time spent to see the patient on the floor, examine the patient, review data and lab results, discuss treatment plan with patient, nursing staff around 50 minutes.
Physical Exam
General: No acute distress
HEENT: Normocephalic, Atraumatic, EOMI, MMM
Respiratory: Diminished breath sounds at the bases
Cardiac: Normal S1/S2, Regular Rate and Rhythm, +murmur
GI: Soft, Nontender, Nondistended, Normal Bowel Sounds
Extremities: No Clubbing, Cyanosis, or Edema
Neuro: Nonfocal/Grossly Intact
Psych: Anxiety improved
Anticipated Discharge: Today
Subjective/Interval History
-
Date of Service: July 04, 2023
No shortness of breath. Still anxious. No fever, no chills. No chest pain, no vomiting.
Objective Data
-
Labs:
Laboratory Results
07/04/23
05:32
WBC 6.7
Hgb 10.1 L
Hct 33.7 L
Plt Count 300
Sodium 137
Potassium 4.1
Chloride 106
Carbon Dioxide 23
BUN 40 H
Creatinine 1.7 H
Glucose 129 H
Calcium 9.4
Vital Signs:
Vital Signs
Temp Pulse Resp BP Pulse Ox
98.2 F 75 16 130/71 97
07/04/23 07:45 07/04/23 08:15 07/04/23 07:45 07/04/23 08:15 07/04/23 07:45
I&O
07/03/23 07/04/23 07/05/23
06:59 06:59 06:59
Intake Total 1080 / 1080 840 / 840
Output Total 1520 / 1520 1675 / 1675
Balance -440 / -440 -835 / -835
[2023-07-04 08:41] VITALS: BP 123/57; BP 141/54; BP 149/79; PULSE 67; PULSE 71; PULSE 76
[2023-07-04 11:02] VITALS: BP 116/52
--- NOTE | 2023-07-04 11:31 | W.PN.UPDATE ---
Update Note
Progress Note Update
Patient resting comfortably in bed. at bedside. Informed her that TAVR is scheduled for 07/10/2023. Pre-admission testing will be 07/08/2023 at 0830 on the ground floor of the [facility] pav[facility]. Patient may have
black coffee and water prior but asked to wait to have breakfast until after blood work drawn. Allowed for and answered questions. Verbalized understanding of the plan. Instructed to continue ASA/Plavix and to not stop for any reason.
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
[2023-07-04 12:03] LABS: Glucose - Point of Care 165 mg/dl (70-99)
--- NOTE | 2023-07-04 12:05 | W.PN.UPDATE ---
Update Note
Progress Note Update
patient seen chart reviewed. patient 's at bedside. patient is going home today . he has dental consult friday in preparation for surgery on . he is trying to be stalwart but clearly remains anxious understandably about upcoming
surgery and whether it will really be healing for him. is very very supportive of him and her nursing background seems helpful. tried to support optimism re his future. i think going home is a good thing for him even if he has to return next
. he has not slept well here and some good sleep will hopefully be restorative. would consider increase in lexapro to 10 mg but perhaps would wait until surgery is over.
[2023-07-04] MEDS: NOVOLOG FLEXPEN-LOW RESISTANCE 1 UNITS SC ×2 (12:18→17:50)
--- NOTE | 2023-07-04 12:49 | W.PN.NEPH.PH ---
Today's Communication / Plan
-
see plan
Assessment/Plan
-
Assessment:
SOB
Acute on chronic HFmREF
Severe undergoing TAVR workup
chronic anemia
NIECY on CPAP
HTN
CKD 3
Diabetes
carotid aneurysm surgery
TIA
CAD s/p stenting (06/2022)
DLD
BPH
Plan:
- nephrology consulted in the setting of longstanding CKD
- cause of CKD thought to be cardiorenal + multiple AKIs through the years + some component of obstructive uropathy (saw urology at [place] for BPH)
- patient is being followed by a sergeant missile crewman Dr Brito
- Cr baseline around 1.6-1.9 atleast for the past year
- excellent UOP with lasix 40mg IV BID and wt at [place]
would resume lasix 60mg PO BID as before which seem to work for him and he is aware of FR
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
BMP on Friday
f/u Dr Brito later after surg
d/w pt and in detail
ok fo rd/c
-
-
Date of Service: July 04, 2023
CC / HPI / ROS
-
Chief Complaint:
SPB
History of Present Illness:
TAVR workup ongoing, plan surg next week
Cr at baseline of 1.6-1.9
wt 83kg , off 6kg since admit
Review of Systems:
no LE edema
no cp or sob
feels normal self
Labs
-
Labs:
WBC 6.7 10^3/uL (4.8-10.8) 07/04/23 05:32
RBC 4.45 10^6/uL (4.70-6.10) L 07/04/23 05:32
Hgb 10.1 g/dL (13.0-18.0) L 07/04/23 05:32
Hct 33.7 % (39.0-52.0) L 07/04/23 05:32
Plt Count 300 10^3/uL (130-400) 07/04/23 05:32
Sodium 137 mmol/L (135-145) 07/04/23 05:32
Potassium 4.1 mmol/L (3.5-5.1) 07/04/23 05:32
Chloride 106 mmol/L (98-107) 07/04/23 05:32
Carbon Dioxide 23 mmol/L (22-30) 07/04/23 05:32
BUN 40 mg/dl (9-20) H 07/04/23 05:32
Creatinine 1.7 mg/dL (0.7-1.3) H 07/04/23 05:32
eGFR 39.75 07/04/23 05:32
Glucose 129 mg/dl (70-99) H 07/04/23 05:32
Calcium 9.4 mg/dl (8.4-10.2) 07/04/23 05:32
Yxd-W-Tgxqyrzewmk Pept 7070 pg/ml 06/30/23 02:38
Albumin 3.9 g/dl (3.5-5.0) 06/30/23 02:38
Physical Exam
-
Vital Signs:
Vital Signs
Temp Pulse Resp BP Pulse Ox
98.2 F 68 17 116/52 94
07/04/23 11:02 07/04/23 11:02 07/04/23 11:02 07/04/23 11:02 07/04/23 11:02
Cardiovascular:: Regular rate and rhythm
Respiratory:: Bilateral: CTA
Lung Excursion:: Normal
Abdomen:: Nontender and Soft
Extremity Edema:: None: Bilateral:
Pritchard Catheter: Yes
--- NOTE | 2023-07-04 13:09 | W.DCSUMMARY ---
Discharge Summary
Discharge Data
Date of Admission: 06/30/23
Date of Discharge: 07/04/23
-
Pending Results: No
Hospital Course
Discharge diagnosis:
Shortness of breath, multifactorial in etiology
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
Severe aortic stenosis
Severe anxiety
Chronic urinary retention secondary to neurogenic bladder, requiring Leon
Coronary artery disease
Right pleural effusion status postthoracentesis on 06/28/2023 draining 950 cc of fluid
Stage III chronic kidney disease
Type 2 diabetes
Consults: Cardiology, psychiatry, CT surgery, nephrology, urology
Hospital course:
83-year-old male with a past medical history of CHF, severe aortic stenosis, severe anxiety, neurogenic bladder causing urinary retention, stage III chronic kidney disease, type 2 diabetes, and right pleural effusion status post recent thoracentesis
came back to the ER for shortness of breath the same day he was discharged.
Patient's shortness of breath is multifactorial in etiology. He has severe anxiety, in conjunction with subacute heart failure and severe aortic stenosis.
Patient was seen in conjunction with psychiatry. He was started on Lexapro 5 mg daily. He did receive Ativan 0.5 mg 3 times daily as needed in the hospital. His anxiety improved. He will be discharged on Lexapro 10 mg daily.
Patient was seen in conjunction with cardiology for subacute heart failure and CT surgery for severe aortic stenosis. He was diuresed with IV Lasix. CT surgery has arranged for his TAVR on 07/10/2023.
With treatment of his anxiety and his heart failure, his shortness of breath resolved. He was seen in conjunction with nephrology, who recommends he continue his previous home Lasix dose of 60 mg twice a day upon discharge.
Patient has chronic urinary retention. He was seen in conjunction with urology, and had a Leon inserted on the first day of his hospitalization. Urology recommends him being discharged with a Leon. He needs to follow-up with urology in the
office for void trial.
Patient is medically stable for discharge. He needs to get preprocedural blood work on 07/08/2023, and he is scheduled to have his TAVR on 07/10/2023.
Disposition: Home, self-care. Patient declined home visiting nurses
Discharge planning: Required 50 minutes
Discharge Plan
-
Patient Disposition: Home (Routine Discharge)
Discharge Diagnosis/Procedures: Shortness of breath, anxiety, congestive heart failure, aortic stenosis, type 2 diabetes, neurogenic bladder with urinary retention requiring Leon, stage III chronic kidney disease, type 2 diabetes
Condition: Fair
Diet: Low Cholesterol and Diabetic, Carb Controlled
Activity: As tolerated
Driving Restrictions: As prior to admission
Activity Restrictions/Additional Instructions:
TAVR is scheduled for 07/10/2023.
Pre-admission testing will be 07/08/2023 at 0830 on the ground floor of the Critical Care and Cardiovascular pavilion.
Patient may have black coffee and water prior but asked to wait to have breakfast until after blood work drawn.
Continue ASA/Plavix, do not stop for any reason.
Instructions: *[facility] Heart Failure Instructions
Referrals:
Lucie Drummond CRNP [Specified Professional Personl] - in three to four days
Ascencion Saravia MD [Active] - in two to three weeks
Sebastian Crawford MD [Active] - in three to four days
Rolando Brito MD [Active] - in one week
Danielle Samayoa MD [Family Provider] - in one week
Prescriptions:
New
escitalopram oxalate [Lexapro] 10 mg tablet
10 mg PO DAILY Qty: 30 0RF
lidocaine HCl [Lidocaine Viscous] 2 % solution
1 applic mucous membrane QIDPRN PRN (Reason: urethral meatus pain per urology) Qty: 100 0RF
Continued
glyburide 5 MG tablet
10 mg PO BID
Patient Comments:
aspirin 81 mg Tablet,Delayed Release (Dr/Ec)
81 mg PO DAILY
tramadol 50 mg Tablet
50 mg PO HSPRN PRN (Reason: SEVERE pain)
Patient Comments:
06/25/2023, pt. filled this med. on 03/27/2023 for 21 tablets per PDMP.
pantoprazole [Protonix] 40 mg Tablet,Delayed Release (Dr/Ec)
40 mg PO DAILY
furosemide [Lasix] 20 mg Tablet
60 mg PO BID
colchicine 0.6 mg Tablet
0.3 mg PO DAILY
Levemir FlexPen 100 unit/mL (3 mL) Insulin Pen
14 unit SC QPM
Repatha Syringe 140 mg/mL Syringe
140 mg SC Q2W
carvedilol [Coreg] 6.25 mg Tablet
6.25 mg PO BID
rosuvastatin [Crestor] 5 mg tablet
5 mg PO MOWEFR@0800
clopidogrel [Plavix] 75 mg tablet
75 mg PO DAILY
acetaminophen 650 mg Tablet Extended Release
1,300 mg PO Q8HPRN PRN (Reason: mild pain)
cranberry 450 mg Tablet
900 mg PO DAILY
ferrous sulfate 325 mg (65 mg iron) tablet
325 mg PO Q48H@0800
albuterol sulfate 2.5 mg /3 mL (0.083 %) Solution For Nebulization
2.5 mg INHALATION R Q6HPRN PRN (Reason: sob)
polyethylene glycol 3350 [Miralax] 17 gram Powder In Packet
17 g PO DAILYPRN PRN (Reason: constipation)
Discharge Orders:
Discharge Patient (As Directed); Ordered 07/04/23
Ordered By: Magan Wheatley
Discharge Date and Time
Discharge Date/Time: 07/04/23 18:45
[2023-07-04] MEDS: MIRALAX 17 GRAMS PO (13:19)
--- NOTE | 2023-07-04 14:53 | CM ---
Patient has been medically cleared for discharge to home. He has declined services. His is a nurse. Patient will be discharging with a pritchard catheter. will transport home.
[2023-07-04 15:59] VITALS: BP 117/63
[2023-07-04 16:56] LABS: Glucose - Point of Care 161 mg/dl (70-99)
[2023-07-04] MEDS: LEVEMIR 0.119999999999999996 UNITS SC (17:51)
== END 2023-07-04 18:45 | disposition home or self-care (01) | DRG 291 ==
LOC: 2 NORTH 04:18
PROVIDERS: Nurse Practitioner; Nurse Practitioner Adult Health; Physician Assistant Medical; ADMITTING PHYSICIAN Hospitalist; ATTENDING PHYSICIAN Family Medicine; CONSULT PHYSICIAN Psychiatry & Neurology Psychiatry; CONSULT PHYSICIAN Specialist; CONSULT PHYSICIAN Student in an Organized Health Care Education/Training Program; EMERGENCY PHYSICIAN Student in an Organized Health Care Education/Training Program; FAMILY PHYSICIAN Family Medicine; OTHER PHYSICIAN Internal Medicine Cardiovascular Disease
PROC: 5A09357 Assistance with Respiratory Ventilation, Less than 24 Consecutive Hours, Continuous Positive Airway Pressure (ICD-10-PCS; 2023-06-30)
DX: I13.0 Hypertensive heart and chronic kidney disease with heart failure and stage 1 through stage 4 chronic kidney disease, or unspecified chronic kidney disease (principal); I50.23 Acute on chronic systolic (congestive) heart failure; E87.1 Hypo-osmolality and hyponatremia; K80.10 Calculus of gallbladder with chronic cholecystitis without obstruction; I25.10 Atherosclerotic heart disease of native coronary artery without angina pectoris; I35.0 Nonrheumatic aortic (valve) stenosis; N18.32 Chronic kidney disease, stage 3b; E11.22 Type 2 diabetes mellitus with diabetic chronic kidney disease; E78.00 Pure hypercholesterolemia, unspecified; K21.9 Gastro-esophageal reflux disease without esophagitis; R09.02 Hypoxemia; F43.22 Adjustment disorder with anxiety; D50.9 Iron deficiency anemia, unspecified; M10.9 Gout, unspecified; G47.33 Obstructive sleep apnea (adult) (pediatric); R06.89 Other abnormalities of breathing; F32.A Depression, unspecified; J45.909 Unspecified asthma, uncomplicated; F41.0 Panic disorder [episodic paroxysmal anxiety]; R33.8 Other retention of urine; N32.0 Bladder-neck obstruction; N40.1 Benign prostatic hyperplasia with lower urinary tract symptoms; Z87.01 Personal history of pneumonia (recurrent); Z87.891 Personal history of nicotine dependence; Z95.5 Presence of coronary angioplasty implant and graft; Z66 Do not resuscitate; Z88.1 Allergy status to other antibiotic agents; Z88.8 Allergy status to other drugs, medicaments and biological substances; Z79.82 Long term (current) use of aspirin; Z79.4 Long term (current) use of insulin; Z79.02 Long term (current) use of antithrombotics/antiplatelets; Z86.73 Personal history of transient ischemic attack (TIA), and cerebral infarction without residual deficits
CPT/HCPCS: 88305; 93308; 70355; 71046; 80048; 80053; 82962; 83735; 83880; 84443; 84484; 85025; 85027; 86850; 86900; 86901; 88112; 88341; 88342; 93005; 93321; 93325; 97116; 97162; 97166; 97535; 99285

== ENCOUNTER 2023-07-10 05:16 | Inpatient (IN) | payer BC, MEDICARE, SELFPAY ==
[2023-07-08 08:10] VITALS: BMI 29.2
[2023-07-08 09:18] LABS: % Basophils 0.9 % (0-2); % Eosinophils 2.9 % (0-6); % Immature Granulocytes 0.4 % (0-0.5); % Lymphocytes 23.8 % (20.5-51.1); % Monocytes 10.4 % (1.7-9.3); % Neutrophils 61.6 % (42.2-75.2); Absolute Basophils 0.1 10^3/uL (0-0.2); Absolute Eosinophils 0.2 10^3/uL (0-0.7); Absolute Lymphocytes 1.8 10^3/uL (1.2-3.4); Absolute Monocytes 0.8 10^3/uL (0.1-0.6); Absolute Neutrophils 4.6 10^3/uL (1.4-6.5); Hematocrit 43.3 % (39.0-52.0); Hemoglobin 12.9 g/dL (13.0-18.0); Mean Corp Hgb Conc. 29.8 g/dL (33.0-37.0); Mean Corpuscular Hgb 22.8 pg (27.0-31.0); Mean Corpuscular Volume 76.4 fL (80.0-94.0); Mean Platelet Volume 10.6 fL (7.4-10.4); Nucleated Red Blood Cells % 0 % (-); Platelet Count 284 10^3/uL (130-400); Red Blood Cell Count 5.67 10^6/uL (4.70-6.10); Red Cell Dist. Width 23.5 % (11.5-14.5); White Blood Cell Count 7.5 10^3/uL (4.8-10.8)
[2023-07-08 09:28] LABS: INR 1.07; PT 13.7 Sec (11.4-14.6)
[2023-07-08 09:29] LABS: APTT 33.3 Sec (23.4-35.0)
[2023-07-08 09:31] LABS: ALT (SGPT) 12 U/L (0-50); AST (SGOT) 22 U/L (17-59); Albumin 4.9 g/dl (3.5-5.0); Alkaline Phosphatase 61 U/L (38-126); Blood Urea Nitrogen 42 mg/dl (9-20); Calcium 10.1 mg/dl (8.4-10.2); Carbon Dioxide 27 mmol/L (22-30); Chloride 100 mmol/L (98-107); Direct Bilirubin 0.1 mg/dl (0.0-0.4); Estimated Creatinine Clearance 30 ml/min; Glucose 89 mg/dl (70-99); Potassium 4.7 mmol/L (3.5-5.1); Sodium 137 mmol/L (135-145); Total Bilirubin 0.7 mg/dl (0.2-1.3); Total Protein 7.6 g/dl (6.3-8.2); eGFR 37.12
[2023-07-08 09:31] LABS: Urine Albumin 1+ (Neg - Trace); Urine Bilirubin Negative (Negative); Urine Character Clear (Clear); Urine Color Yellow; Urine Glucose Negative (Negative); Urine Ketone Negative (Negative); Urine Leukocyte 2+ (Negative); Urine Nitrite Negative (Negative); Urine Occult Blood 1+ (Negative); Urine Urobilinogen Negative (Neg - 1+)
[2023-07-08 09:38] LABS: NT-proBNP 5340 pg/ml
[2023-07-08 09:39] LABS: Urine Hyaline Cast 0-2 /LPF (0-2)
[2023-07-08 09:41] LABS: Urine White Cell 26-30 /HPF (0-5)
[2023-07-08 09:42] LABS: Urine Bacteria Few (Negative)
--- NOTE | 2023-07-08 10:28 | CM ---
Met with and Mrs. Bui in [facility]. He states prior to admission he resides with his spouse in a two story home with five steps to enter. He states prior to admission he was independent with ambulation and adls. He states he does not have any
DME. He states he has a prescription plan and uses [facility]. His spouse states she will be home for a week to assist in his care if needed. Spouse is a RN. The discharge plan is to return home with his spouse and a home visit by the
Cardiothoracic Transitional Care Nurse when medically stable.
We reviewed pre-op and post-op routine. We reviewed the shower instructions. He has the soap, written instructions and the TAVR Booklet. We also reviewed restrictions including driving and lifting restrictions. Also discussed a home visit by the
Cardiothoracic Transitional Care Nurse. He is agreeable to a home visit. The plan is for TAVR on June.
[2023-07-10] VITALS (29 sets, daily range): BP systolic 108–144; BP diastolic 49–74; BMI 29.2; BMI 27.0
[2023-07-10 05:44] LABS: Glucose - Point of Care 139 mg/dl (70-99)
--- NOTE | 2023-07-10 06:19 | PTCARENOTE ---
Addendum entered by Americo Irving RN 07/10/23 06:28:
Patient arrived to unit at 0500 with . NPO since midnight. 81 mg ASA and 75 mg of Plavix with a sip of water. AOx3, [place], pale. Chronic left shoulder pain with some limited ROM, pain when he raises arm. SR with a first HB, strip on chat. Chronic
Leon drainage bag, urine pale yellow. Patient washed with 4% CHG at home, 2% CHG wipes completed. Patient did have some mild nausea that has subsided, call sandy in reach
Original Note:
Patient arrived to unit at 0500 with . NPO since midnight. 81 mg ASA and 75 mg of Plavix with a sip of water. AOx3, [place], pale. Chronic left shoulder pain with some limited ROM, pain when he raises arm. SR with a first HB, strip on chat. Chronic
Leon drainage bag, urine pale yellow. Patient washed with 4% CHG at home, 2% CHG wipes completed.
[2023-07-10 08:20] LABS: ACT-LR - POC 297 Seconds (116-155)
--- NOTE | 2023-07-10 08:42 | W.CVOR.SURPR ---
CVOR Surgeon Immed Pre Op
-
I have examined this patient prior to performance of the scheduled procedure.
The patient's condition is unchanged from the time of the dictated/written History and
Physical and the patient is able to undergo the scheduled procedure.
[2023-07-10 08:43] LABS: ACT-LR - POC 226 Seconds (116-155)
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
--- NOTE | 2023-07-10 08:44 | W.PN.UPDATE ---
Update Note
Progress Note Update
Reviewed Mr. Bui with the heart team in the preTAVR SDM meeting and confirmed a 29mm S3 via right transfemoral access. Patient will resume aspirin and plavix post TAVR. LVEDP 35mmHg. #29mm S3 (serial# [id number]) successfully deployed via (R) TF
access. Post implant MG 2mmHg.
--- NOTE | 2023-07-10 08:45 | ITS.CL.TAVR ---
Smt Machine Operator - TAVR Report
TAVR PRocedure
Procedure Report:
TRANSCATHETER AORTIC VALVE REPLACEMENT
Date of Procedure: July 10, 2023
Referring: Milind Cortés
Operators: Drs. Tati Kam and Ramakrishna Torres
PROCEDURE PERFORMED:
1. Successful placement of 29 mm Waldrop Lenin S3 aortic valve via right common femoral approach.
PREPROCEDURE NYHA CLASS: II
DESCRIPTION OF PROCEDURE: The patient was referred for assessment of severe symptomatic aortic stenosis and following a comprehensive evaluation it was felt that transcatheter aortic valve replacement (TAVR) would be the most appropriate treatment.
Informed consent was obtained prior to the procedure. A 'time-out' was called and the procedural plan was verbally confirmed by anesthesia, surgery, perfusion, and cath lab tech staff.
Arterial and venous access site were obtained in the left common femoral artery and vein using ultrasound guidance and micropuncture technique. 6 Fr. sheaths were inserted.
A 5 Fr. transvenous pacing wire was advanced to the right ventricle where excellent pacing thresholds were obtained.
A 5 Fr. pigtail catheter was then advanced to the proximal ascending aorta / right aortic cusp where angiography was performed in multiple angles to define the co-planar angle that was most appropriate valve deployment (IRISH 7/ CAU 18).
Ultrasound guidance was then used to obtain arterial access in the right common femoral artery and a 4 Fr. micropuncture sheath was inserted. Angiography was performed and the arteriotomy site appeared appropriate for preclosure with two Perclose
devices. An 8 Fr sheath was then inserted back into the common femoral artery over a J-tipped guidewire. An AL1 catheter was positioned in the proximal descending aorta. An Extra Stiff 0.035' J-tip wire was inserted to provide extra-support to
facilitate the Waldrop eSheath delivery. The right common femoral arteriotomy was dilated with a 14 Fr. dilator followed by placement of the 16 Fr. Waldrop eSheath in the descending thoracic aorta.
An AL1 catheter was advanced through the Waldrop eSheath over a 0.035' J-tip guide wire. The AL1 catheter was positioned just above the aortic valve. A 0.035' Straight tip wire probed the aortic valve and crossed the stenotic leaflets. The AL1
was then advanced to the mid left ventricle and invasive LVEDP was measured which was significantly elevated at 35 mmHg. An Amplatz Extra-stiff wire with a generous curved tip was then positioned in the left ventricular apex. A 29 mm Waldrop
Lenin S3 valve was brought to the table and the orientation of the valve on the balloon delivery system was confirmed by all operators. The Lenin S3 valve was advanced through the eSheath and into the proximal descending thoracic aorta. The
Lenin S3 valve was centered on the delivery balloon and the entire system was retroflexed as it crossed the aortic arch. The Lenin S3 delivery system was then advanced across the stenotic valve and the 29 mm Lenin S3 valve was deployed during
rapid pacing. The valve deployment was uneventful. Transthoracic echocardiographic images post valve deployment revealed minimal aortic insufficiency with excellent position of the aortic prosthesis.
The Waldrop balloon and delivery system were then removed. The Waldrop sheath was removed and the Perclose knots were advanced to the arteriotomy site resulting in excellent hemostasis.
Fluoro Time: 7.7 min, Dose: 329.8 mGy, DAP : 38.2 Gy.cm2
CONCLUSIONS:
1. Severe symptomatic aortic stenosis. Successful deployment of a 29 mm Lenin S3 valve with minimal aortic insufficiency post procedure
2. Successful arteriotomy closure with 2 Perclose devices.
3. Acute on chronic heart failure with LVEDP elevated at 35 mmHg.
Copy to: Milind Cortés
Tati Kam MD, [facility], [facility]
--- NOTE | 2023-07-10 09:12 | CM ---
Addendum entered by BETZAIDA Schaefer 07/10/23 10:29:
Met w spouse at bedside. Reviewed CM role. Discussed post op appointments/CT Transitional Care RN.
CM to follow.
Original Note:
Patient in OR today for TAVR procedure.
Reviewed initial assessment. Pt. comes from home w/ spouse. He is functionally indep. at baseline w/ ADLs, mobility.
Anticipated DC plan is for home w/ CT Transitional Care RN.
CM to follow.
[2023-07-10 09:49] LABS: Glucose - Point of Care 139 mg/dl (70-99)
[2023-07-10 09:50] LABS: ACT-LR - POC 153 Seconds (116-155)
[2023-07-10] MEDS: TYLENOL 650 MG PO (11:31)
[2023-07-10] MEDS: PROTONIX 40 MG PO (11:32)
[2023-07-10] MEDS: ASPIR LOW (ENTERIC COATED) 81 MG PO (11:32)
[2023-07-10] MEDS: ANCEF 10 IV ×2 (11:32)
--- NOTE | 2023-07-10 11:49 | PTCARENOTE ---
Rec'd pt from petroleum refinery laborer awake and alert with Rt and left groin dsgs intact. Neuro intact. Smile symmetrical, tongue midline, moving all extremities spontaneously and to command. Rt groin oozing. Left groin dsg intact, no bleeding, no hematoma.
Pressure held x 10min. VS and groin checks done as per protocol. See worklist for VS/I and O and assessments.
[2023-07-10] MEDS: COREG PO (13:20)
[2023-07-10] MEDS: MICRONASE PO (13:21)
--- NOTE | 2023-07-10 13:30 | PTCARENOTE ---
Resumed care of pt from previous RN. AAOx3. remains on bedrest. at bedside. SB on monitor hr in 40-50s. Rt and left groin dsgs intact. Neuro assessment WNL. pulses weakly palpable. pritchard draining clear yellow urine. eating lunch now. will
continue to monitor.
[2023-07-10] MEDS: ANCEF 5 IV (16:39)
[2023-07-10] MEDS: MICRONASE 10 MG PO (16:44)
--- NOTE | 2023-07-10 16:56 | PTCARENOTE ---
patient up and walking without difficulty. Pulses remain weakly palpable. no bleeding noted. will continue to monitor.
[2023-07-10 16:57] LABS: Glucose - Point of Care 161 mg/dl (70-99)
[2023-07-10] MEDS: LEVEMIR 0.140000000000000013 UNITS SC (18:22)
[2023-07-10] MEDS: NOVOLOG FLEXPEN-MODERATE RESISTANCE 1 UNITS SC (18:22)
[2023-07-10] MEDS: COLCHICINE 0.299999999999999989 MG PO (18:23)
[2023-07-10] MEDS: PLAVIX 75 MG PO (18:23)
[2023-07-10] MEDS: LASIX 60 MG PO ×2 (18:23→19:46)
[2023-07-10] MEDS: COREG 6.25 MG PO (19:46)
[2023-07-10 22:24] LABS: Glucose - Point of Care 188 mg/dl (70-99)
--- NOTE | 2023-07-11 00:03 | PTCARENOTE ---
assumed care of patient at the change of shift. AAOx3. [employer]. neuro intact. ambulating in the room independently. HR SR 60s with a first degree AVB. bp stable. patient denies any pain. b/l groin sites intact, soft. weak DP pulses. yellow urine in
pritchard catheter. order to remove prior to discharge. patient self caths at home. reviewed plan of care with patient and verbalized understanding. call sandy within reach.
[2023-07-11 03:06] VITALS: BP 125/58
[2023-07-11 03:26] LABS: Hematocrit 36.1 % (39.0-52.0); Hemoglobin 10.5 g/dL (13.0-18.0); Mean Corp Hgb Conc. 29.1 g/dL (33.0-37.0); Mean Corpuscular Hgb 22.5 pg (27.0-31.0); Mean Corpuscular Volume 77.5 fL (80.0-94.0); Mean Platelet Volume 10.4 fL (7.4-10.4); Platelet Count 198 10^3/uL (130-400); Red Blood Cell Count 4.66 10^6/uL (4.70-6.10); Red Cell Dist. Width 22.4 % (11.5-14.5); White Blood Cell Count 7.6 10^3/uL (4.8-10.8)
[2023-07-11 03:59] LABS: Blood Urea Nitrogen 40 mg/dl (9-20); Calcium 9.3 mg/dl (8.4-10.2); Carbon Dioxide 28 mmol/L (22-30); Chloride 101 mmol/L (98-107); Estimated Creatinine Clearance 34 ml/min; Glucose 95 mg/dl (70-99); Potassium 4.2 mmol/L (3.5-5.1); Sodium 139 mmol/L (135-145); eGFR 39.75
[2023-07-11 05:00] LABS: Glucose - Point of Care 85 mg/dl (70-99)
[2023-07-11 06:00] VITALS: BMI 27.2
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
[2023-07-11 06:46] VITALS: BP 128/53
[2023-07-11 06:49] LABS: Glucose - Point of Care 184 mg/dl (70-99)
[2023-07-11] MEDS: ASPIR LOW (ENTERIC COATED) 81 MG PO (08:30)
[2023-07-11] MEDS: NOVOLOG FLEXPEN-MODERATE RESISTANCE 1 UNITS SC ×2 (08:30→12:01)
[2023-07-11] MEDS: LASIX 60 MG PO (08:30)
[2023-07-11] MEDS: COREG 6.25 MG PO (08:31)
[2023-07-11] MEDS: PLAVIX 75 MG PO (08:31)
[2023-07-11] MEDS: PROTONIX 40 MG PO (08:31)
[2023-07-11] MEDS: COLCHICINE 0.299999999999999989 MG PO (08:31)
[2023-07-11] MEDS: MICRONASE 10 MG PO (08:32)
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
--- NOTE | 2023-07-11 10:35 | CM ---
Addendum entered by BETZAIDA Schaefer 07/11/23 11:20:
Met w/ patient at bedside. He reports that she is feeling well.
Reviewed DC plan for home w/ CT Transitional Care RN.
Will cont. to follow.
Original Note:
CM following for DC planning needs.
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 Will re-attempt at a later time.
Anticipate DC to home today w/ CT Transitional Care RN.
CM to follow.
[2023-07-11 11:08] VITALS: BP 134/76
[2023-07-11 11:11] LABS: Glucose - Point of Care 167 mg/dl (70-99)
--- NOTE | 2023-07-11 11:34 | PTCARENOTE ---
Pt received this am awake, alert and oriented. Pt stated he didn't sleep well and wanted to rest. Bilateral groin sites dressings dry and intact with no drainage or hematoma. Pt denies any pain or sob. Neuro status WNL. No c/o offered.
[2023-07-11 11:55] VITALS: BP 129/64; PULSE 62; O2SAT 96
--- NOTE | 2023-07-11 12:35 | PTCARENOTE ---
Leon removed as ordered. Leon drained 900ml clear yellow urine.Pt OOB ambulating in the hallway today with cardiac rehab. Gait steady. Pt discharged to home with his . Discharge instructions given and reviewed with pt and his with good
understanding.
== END 2023-07-11 12:32 | disposition home or self-care (01) | DRG 266 ==
LOC: IVU 05:16
PROVIDERS: Physician Assistant Surgical; ADMITTING PHYSICIAN Thoracic Surgery (Cardiothoracic Vascular Surgery); CONSULT PHYSICIAN Internal Medicine Interventional Cardiology; FAMILY PHYSICIAN Family Medicine
PROC: 02RF38Z Replacement of Aortic Valve with Zooplastic Tissue, Percutaneous Approach (ICD-10-PCS; 2023-07-10)
DX: I35.0 Nonrheumatic aortic (valve) stenosis (principal); I50.43 Acute on chronic combined systolic (congestive) and diastolic (congestive) heart failure; I42.9 Cardiomyopathy, unspecified; I11.0 Hypertensive heart disease with heart failure; E78.5 Hyperlipidemia, unspecified; E11.22 Type 2 diabetes mellitus with diabetic chronic kidney disease; N18.32 Chronic kidney disease, stage 3b; M10.9 Gout, unspecified; G47.33 Obstructive sleep apnea (adult) (pediatric); N31.9 Neuromuscular dysfunction of bladder, unspecified; D11.0 Benign neoplasm of parotid gland; E11.51 Type 2 diabetes mellitus with diabetic peripheral angiopathy without gangrene; D63.1 Anemia in chronic kidney disease; R00.1 Bradycardia, unspecified; I44.0 Atrioventricular block, first degree; Z86.73 Personal history of transient ischemic attack (TIA), and cerebral infarction without residual deficits
CPT/HCPCS: 93308; 33361; 36415; 71045; 71046; 76937; 80048; 80053; 81003; 81015; 82248; 82962; 83880; 85025; 85027; 85347; 85610; 85730; 86850; 86900; 86901; 87070; 87086; 93005; 93306; 93321; 93325; C1760; C1769; C1894; Q9967

== ENCOUNTER → 2023-08-06 07:41 | Outpatient (REF) | payer BC, MEDICARE, SELFPAY | LOC: RCS 07:41 | PROVIDERS: ATTENDING PHYSICIAN Internal Medicine Cardiovascular Disease; FAMILY PHYSICIAN Family Medicine; REFERRING PHYSICIAN Internal Medicine | DX: I35.0 Nonrheumatic aortic (valve) stenosis (principal); M10.9 Gout, unspecified | CPT/HCPCS: 73630; 93306 ==

== ENCOUNTER → 2023-10-28 10:20 | Outpatient (REF) | payer BC, MEDICARE, SELFPAY | LOC: RAD 10:20 | PROVIDERS: ATTENDING PHYSICIAN Internal Medicine Cardiovascular Disease; FAMILY PHYSICIAN Family Medicine | DX: I65.22 Occlusion and stenosis of left carotid artery (principal) | CPT/HCPCS: 93880 ==

== ENCOUNTER → 2024-07-19 13:51 | Outpatient (REF) | payer BC, MEDICARE, SELFPAY | LOC: RAD 13:51 | PROVIDERS: ATTENDING PHYSICIAN Internal Medicine Cardiovascular Disease; FAMILY PHYSICIAN Family Medicine | DX: I65.23 Occlusion and stenosis of bilateral carotid arteries (principal) | CPT/HCPCS: 93880 ==

== ENCOUNTER → 2024-10-21 11:24 | Outpatient (REF) | payer BC, MEDICARE, SELFPAY | LOC: RCS 11:24 | PROVIDERS: ATTENDING PHYSICIAN Internal Medicine Cardiovascular Disease; FAMILY PHYSICIAN Family Medicine | DX: Z95.2 Presence of prosthetic heart valve (principal) | CPT/HCPCS: 93306 ==

== ENCOUNTER → 2025-02-08 09:49 | Outpatient (REF) | payer BC, MEDICARE, SELFPAY | LOC: RAD 09:49 | PROVIDERS: ATTENDING PHYSICIAN Internal Medicine Cardiovascular Disease; FAMILY PHYSICIAN Family Medicine | DX: E78.00 Pure hypercholesterolemia, unspecified (principal); I65.22 Occlusion and stenosis of left carotid artery; Z95.828 Presence of other vascular implants and grafts | CPT/HCPCS: 93880 ==